=== PATIENT | female | born 1990 | race Caucasian/White ===

== ENCOUNTER 2022-02-27 13:22 | Outpatient (REF) | payer MEDICAID, SELFPAY | END 2022-02-27 13:23 | disposition home or self-care (01) | LOC: HO.LNP 13:22 | PROVIDERS: PCP Pediatrics; Visit Provider Obstetrics & Gynecology | DX: Z12.4 Encounter for screening for malignant neoplasm of cervix (principal); N93.9 Abnormal uterine and vaginal bleeding, unspecified; R19.00 Intra-abdominal and pelvic swelling, mass and lump, unspecified site | CPT/HCPCS: 36415; 84443; 84702; 85027; 88142; 99202 ==

== ENCOUNTER 2022-02-27 14:05 | Outpatient (REF) | payer MEDICAID, SELFPAY ==
[2022-02-27 15:02] LABS: Hematocrit 37.7 % (37.0-47.0); Mean Corpuscular HGB Conc 34.5 g/dl (31.0-35.0); Mean Corpuscular Hemoglobin 32.7 pg (27.0-33.0); Mean Platelet Volume 11.6 fL (9.4-12.3); Platelet Count 348 X10*3/uL (160-400); Red Blood Count 3.97 X10*6/uL (4.20-5.50); Red Cell Distribution Width 11.9 % (11.0-16.0); White Blood Count 9.7 X10*3/uL (4.8-10.8)
[2022-02-27 16:19] LABS: HCG Quantitative < 2 mIU/mL; TSH reflex Free T4 0.48 uIU/mL (0.32-4.0)
== END 2022-02-27 14:06 | disposition home or self-care (01) ==
LOC: HO.LAB 14:05
PROVIDERS: PCP Pediatrics; Visit Provider Obstetrics & Gynecology
DX: N93.9 Abnormal uterine and vaginal bleeding, unspecified (principal)
CPT/HCPCS: 36415; 84443; 84702; 85027

== ENCOUNTER 2022-08-24 10:26 | Outpatient (REF) | payer MEDICAID, SELFPAY ==
--- NOTE | ~2022-08-24 | XR_ITS ---
EXAMINATION: XR HAND, LEFT XR WRIST, LEFT CLINICAL INFORMATION: Injury of left hand and left wrist yesterday. COMPARISON: None available. TECHNIQUE: PA, lateral, and oblique views of the left hand. PA, lateral and oblique views of the left wrist including scaphoid view. FINDINGS: Alignment is anatomic. Joint spaces are maintained. No displaced fracture or dislocation. No displaced fracture or dislocation. No erosions or soft tissue calcifications. XR/XR wrist LT w scaphoid IMPRESSION: No acute abnormality.
--- NOTE | ~2022-08-24 | XR_ITS ---
EXAMINATION: XR HAND, LEFT XR WRIST, LEFT CLINICAL INFORMATION: Injury of left hand and left wrist yesterday. COMPARISON: None available. TECHNIQUE: PA, lateral, and oblique views of the left hand. PA, lateral and oblique views of the left wrist including scaphoid view. FINDINGS: Alignment is anatomic. Joint spaces are maintained. No displaced fracture or dislocation. No displaced fracture or dislocation. No erosions or soft tissue calcifications. XR/XR hand LT min 3V IMPRESSION: No acute abnormality.
== END 2022-08-24 10:27 | disposition home or self-care (01) ==
LOC: HO.HHCX 10:26
PROVIDERS: Visit Provider Internal Medicine
DX: M79.642 Pain in left hand (principal); M25.532 Pain in left wrist
CPT/HCPCS: 73110; 73130

== ENCOUNTER 2022-09-18 16:15 | Outpatient (REF) | payer MEDICAID, SELFPAY ==
--- NOTE | ~2022-09-18 | XR_ITS ---
EXAMINATION: XR KNEE, LEFT CLINICAL INFORMATION: Left knee injury. COMPARISON: None available. TECHNIQUE: Four views of the left knee. FINDINGS: No fracture or joint effusion appreciated. Alignment is anatomic. Joint spaces are maintained. No abnormal soft tissue calcification. XR/XR knee LT 4V IMPRESSION: Normal plain film examination of the left knee.
== END 2022-09-18 16:16 | disposition home or self-care (01) ==
LOC: HO.XRAY 16:15
PROVIDERS: PCP Pediatrics; Visit Provider Registered Nurse
DX: S89.92XA Unspecified injury of left lower leg, initial encounter (principal)
CPT/HCPCS: 73564

== ENCOUNTER 2022-10-18 15:47 | Outpatient (REF) | payer MEDICAID, SELFPAY ==
--- NOTE | ~2022-10-18 | XR_ITS ---
EXAMINATION: XR WRIST, LEFT XR HAND, LEFT CLINICAL INFORMATION: Pain. COMPARISON: Radiographs dated 08/24/2022. TECHNIQUE: A dedicated navicular view of the left wrist are submitted. PA, lateral, and oblique views of the left hand are submitted. FINDINGS: The bones and soft tissues are normal. No fracture. Alignment is anatomic with normal joint spaces. No erosions or abnormal soft tissue calcifications. XR/XR hand LT min 3V IMPRESSION: Normal left wrist.
--- NOTE | ~2022-10-18 | XR_ITS ---
EXAMINATION: XR WRIST, LEFT XR HAND, LEFT CLINICAL INFORMATION: Pain. COMPARISON: Radiographs dated 08/24/2022. TECHNIQUE: A dedicated navicular view of the left wrist are submitted. PA, lateral, and oblique views of the left hand are submitted. FINDINGS: The bones and soft tissues are normal. No fracture. Alignment is anatomic with normal joint spaces. No erosions or abnormal soft tissue calcifications. XR/XR wrist LT min 3V IMPRESSION: Normal left wrist.
[2022-10-18 18:21] LABS: TSH reflex Free T4 0.53 uIU/mL (0.32-4.0); Vitamin D 25-OH Total 20.9 ng/mL (>30)
[2022-10-20 22:13] LABS: TS Negative Control Passed; TS Panel A 0; TS Panel B 0; TS Positive Control Passed; TSpotTB Negative (Negative)
== END 2022-10-18 15:48 | disposition home or self-care (01) ==
LOC: HO.LAB 15:47
PROVIDERS: PCP Pediatrics; Visit Provider Pediatrics
DX: M25.532 Pain in left wrist (principal); E03.9 Hypothyroidism, unspecified
CPT/HCPCS: 36415; 73110; 73130; 82306; 84443; 86481

== ENCOUNTER 2022-10-24 13:08 | Outpatient (AMB) | payer MEDICAID, SELFPAY ==
--- NOTE | 2022-10-24 13:23 | A.OFFVIS_ITS ---
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 States about mid August, she woke up with pain in her ulnar side. Then 2 weeks later she fell and someone fell on top of her hand increasing her hand pain. 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 States she is now also having numbness since her 2nd injury. seen with her PCP who referred patient to orthopedics. 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 She reportedly punched something in mid August, and then about 2 weeks later fell onto her left hand and someone fell on top of her, re-injuring her left hand. She complains of pain extending from the left small and ring fingers proximally on to the wrist. She had radiographs taken 10/18/2022. She denies numbness and tingling and denies locking and catching Pain is worse with certain patient care maneuvers when she works as a INSTITUTION DIRECTOR. 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 Reproductive History Menstrual Age of Menarche: 15 Physical Exam Vital Signs: BMI result Body Mass Index 27.4 Const General: cooperative, healthy appearing and no acute distress Orientation/consciousness: oriented to person and oriented to place HEENT Head: Yes normocephalic and Yes atraumatic Eyes EOM: EOMs intact bilaterally Resp Effort & Inspection: normal respiratory effort and able to speak in complete sentences Cardio Jugular venous distension: no JVD Skin General skin exam: turgor normal Rashes: no rashes Neuro General: oriented to person and oriented to place Extrem Other: Evaluation of left Upper Extremity: Neuro: Median, ulnar, radial nerves motor and sensory intact. Vascular: Cap refill brisk. ROM: Can bring fingers closed to a tight fist and back out to extension. No locking or catching. No subluxation of extensor tendons at the MCP joint. No subluxation of the 4th or 5th CMC joints. Can oppose thumb to fingertips Smooth and painless wrist ROM Mild tenderness to palpation over the dorsal aspect of the ring and small finger proximal phalanx shafts. Not particularly tender over the 4th or 5th MCP joints. No tenderness over the 4th or 5th metacarpal heads or necks. Mild tenderness over the 4th and 5th metacarpal shafts Mild tenderness over the 4th and 5th CMC joints dorsally. Not so tender over the dorsal aspect of the ulnocarpal joint, when compared with the 4th and 5th CMC joints. Smooth wrist flexion extension and prono-supination without discomfort. No swelling. Skin: No lacerations or abrasions. General: No eccymosis. No erythema or evidence of infection. Radiographs: Three views of the left hand and wrist were taken on 10/18/2022. These were reviewed by me today in clinic. No fractures or dislocations were visualized. Psych Appearance: grossly normal Affect: normal affect Attitude: cooperative Assessment & Plan Assessment & Plan (1) Right wrist pain: Code(s): M25.531 - Pain in right wrist (2) Right hand pain: Code(s): M79.641 - Pain in right hand Plan Assessment and plan: 1. Right hand/wrist pain Following up punching injury and then a fall all in August of 2022 No fractures or dislocations Tenderness in ring and small finger proximal phalanx shafts Tenderness also at the dorsal aspect of the 4th and 5th CMC joints with no evidence of subluxation. It is possible that she may have sprained the 4th and 5th CMC joints. Pain is exacerbated with heavier activities, including some of the activity she does as a INSTITUTION DIRECTOR. I educated her about this condition. It is possible she has a 4th and 5th CMC sprain and may need some more time for her hand to recover. I am referring her to OT hand therapy to see if they may be helpful in decreasing her pain with her work related activities. We will see her back in about 6 weeks to see how she is doing. If things are not getting better we could consider an MRI or a CT scan depending on what her symptoms are like at that time. Orders: Orders OT Evaluation and Treatment Today M25.531 - Pain in right wrist, M79.641 - Pain in right hand Coding Level of Care Code New Pt Level 3 (98411) Diagnoses Right wrist pain M25.531 Right hand pain M79.641
[2022-10-24 13:25] VITALS: BMI 27.4
== END 2022-10-24 14:09 | disposition home or self-care (01) ==
PROVIDERS: PCP Pediatrics; Visit Provider Orthopaedic Surgery
DX: M25.531 Pain in right wrist (principal); M79.641 Pain in right hand
CPT/HCPCS: 99203

== ENCOUNTER → 2022-10-24 13:08 | Outpatient (BNVA) | payer MEDICAID, SELFPAY | PROVIDERS: PCP Pediatrics; Visit Provider Orthopaedic Surgery ==

== ENCOUNTER 2022-11-09 15:12 | Outpatient (REF) | payer MEDICAID, SELFPAY | END 2022-11-09 15:13 | disposition home or self-care (01) | LOC: HO.CHCLDS 15:12 | PROVIDERS: Visit Provider Pediatrics | DX: Z11.3 Encounter for screening for infections with a predominantly sexual mode of transmission (principal) | CPT/HCPCS: 0353U; 86803; 87389 ==

== ENCOUNTER 2023-03-22 10:42 | Outpatient (REF) | payer MEDICAID, SELFPAY ==
[2023-03-22 14:13] LABS: MANUAL DIFF FLAG NO
[2023-03-22 14:22] LABS: Basophils Absolute Auto 0.1 X10*3/uL (0.0-0.2); Basophils Percent Auto 0.6 % (0-2); Eosinophils Absolute Auto 0.2 X10*3/uL (0.0-0.4); Eosinophils Percent Auto 1.6 % (0-4); Hematocrit 42.3 % (37.0-47.0); Hemoglobin 14.4 g/dl (12.0-16.0); Imm Gran Abs Auto 0.03 X10*3/uL (0.00-0.03); Imm Gran Pct Auto 0.3 % (0.0-0.4); Lymphocytes Absolute Auto 2.5 X10*3/uL (1.2-4.9); Mean Corpuscular Hemoglobin 31.7 pg (27.0-33.0); Mean Corpuscular Volume 93.2 fL (80.0-98.0); Mean Platelet Volume 11.9 fL (9.4-12.3); Monocytes Absolute Auto 0.7 X10*3/uL (0.1-1.2); Monocytes Percent Auto 6.8 % (2-11); Neutrophils Absolute Auto 6.2 x10*3/uL (2.0-8.3); Neutrophils Percent Auto 64.7 % (45-73); Platelet Count 349 X10*3/uL (160-400); Red Blood Count 4.54 X10*6/uL (4.20-5.50); Red Cell Distribution Width 11.9 % (11.0-16.0); White Blood Count 9.6 X10*3/uL (4.8-10.8)
[2023-03-22 14:51] LABS: TSH reflex Free T4 0.15 uIU/mL (0.32-4.0); Vitamin D 25-OH Total 33.6 ng/mL (>30)
[2023-03-22 15:40] LABS: Free T4 (Free Thyroxine) 1.39 ng/dL (0.71-1.85)
== END 2023-03-22 10:43 | disposition home or self-care (01) ==
LOC: HO.CHCLDS 10:42
PROVIDERS: Visit Provider Pediatrics
DX: E03.9 Hypothyroidism, unspecified (principal); E55.9 Vitamin D deficiency, unspecified
CPT/HCPCS: 36415; 82306; 84439; 84443; 85025

== ENCOUNTER 2023-04-16 13:44 | Outpatient (REF) | payer MEDICAID, SELFPAY ==
[2023-04-16 15:34] LABS: Influenza A PCR NEGATIVE (Negative); Influenza B PCR NEGATIVE (Negative); Resp Syncy Virus RNA Qual PCR NEGATIVE (Negative); SARS COV2 PCR INHOUSE NEGATIVE (Negative)
== END 2023-04-16 13:45 | disposition home or self-care (01) ==
LOC: HO.CHCLNP 13:44
PROVIDERS: Visit Provider Family Medicine
DX: J06.9 Acute upper respiratory infection, unspecified (principal); Z11.52 Encounter for screening for COVID-19; Z20.828 Contact with and (suspected) exposure to other viral communicable diseases
CPT/HCPCS: 0241U; 87070

== ENCOUNTER 2023-08-17 16:00 | Outpatient (REF) | payer OTHER, MEDICAID, SELFPAY ==
[2023-08-17 18:09] LABS: MANUAL DIFF FLAG NO
[2023-08-17 18:17] LABS: Appearance Urine Clear; Color Urine Dark Yellow; Glucose Urine UA Negative (Negative); Leukocyte Esterase Urine Small (1+) (Negative); Nitrite Urine Negative (Negative); PH 5.5 (5.0-9.0); UMIC TRIGGER UACC YES; Urine Blood Large (3+) (Negative); Urine Ketones Negative (Negative); Urine Protein Trace mg/dL (Neg-Trace)
[2023-08-17 18:19] LABS: Basophils Absolute Auto 0.1 X10*3/uL (0.0-0.2); Basophils Percent Auto 0.7 % (0-2); Eosinophils Absolute Auto 0.5 X10*3/uL (0.0-0.4); Eosinophils Percent Auto 4.6 % (0-4); Hematocrit 36.2 % (37.0-47.0); Hemoglobin 12.6 g/dl (12.0-16.0); Imm Gran Abs Auto 0.04 X10*3/uL (0.00-0.03); Imm Gran Pct Auto 0.4 % (0.0-0.4); Lymphocytes Absolute Auto 3.1 X10*3/uL (1.2-4.9); Lymphocytes Percent Auto 28.8 % (20-40); Mean Corpuscular HGB Conc 34.8 g/dl (31.0-35.0); Mean Corpuscular Hemoglobin 31.9 pg (27.0-33.0); Mean Corpuscular Volume 91.6 fL (80.0-98.0); Mean Platelet Volume 11.7 fL (9.4-12.3); Monocytes Absolute Auto 0.7 X10*3/uL (0.1-1.2); Monocytes Percent Auto 6.6 % (2-11); Neutrophils Absolute Auto 6.3 x10*3/uL (2.0-8.3); Neutrophils Percent Auto 58.9 % (45-73); Platelet Count 334 X10*3/uL (160-400); Red Blood Count 3.95 X10*6/uL (4.20-5.50); Red Cell Distribution Width 11.9 % (11.0-16.0); White Blood Count 10.7 X10*3/uL (4.8-10.8)
[2023-08-17 18:20] LABS: Bacteria Urine Trace (None Seen); Hyaline Casts Urine 0-2 /LPF (0-2); RBC Urine >20 /HPF (0-2); UACC Culture Trigger YES; WBC Urine 21-50 /HPF (0-5)
[2023-08-17 18:50] LABS: HCG Quantitative < 2 mIU/mL; TSH reflex Free T4 0.19 uIU/mL (0.32-4.0)
[2023-08-17 19:28] LABS: Free T4 (Free Thyroxine) 1.07 ng/dL (0.71-1.85)
[2023-08-20 05:20] LABS: HBS Num1 77.93 mIU/mL (0-7.99); ~HepC Num1 0.44 S/CO (0.00-0.79); ~Hepatitis B Surface Antibody REACTIVE (Nonreactive); ~Hepatitis C Antibody Nonreactive (Nonreactive)
== END 2023-08-17 16:01 | disposition home or self-care (01) ==
LOC: HO.CHCLDS 16:00
PROVIDERS: Visit Provider Pediatrics
DX: Z00.00 Encounter for general adult medical examination without abnormal findings (principal); R30.0 Dysuria; N92.6 Irregular menstruation, unspecified; E03.9 Hypothyroidism, unspecified
CPT/HCPCS: 36415; 81001; 84439; 84443; 84702; 85025; 86706; 86803; 87086

== ENCOUNTER 2023-08-31 14:24 | Outpatient (REF) | payer MEDICAID, SELFPAY ==
[2023-08-31 15:07] LABS: MANUAL DIFF FLAG NO
[2023-08-31 15:15] LABS: Basophils Absolute Auto 0.1 X10*3/uL (0.0-0.2); Basophils Percent Auto 1.1 % (0-2); Eosinophils Absolute Auto 0.5 X10*3/uL (0.0-0.4); Hematocrit 37.9 % (37.0-47.0); Hemoglobin 13.5 g/dl (12.0-16.0); Imm Gran Abs Auto 0.03 X10*3/uL (0.00-0.03); Imm Gran Pct Auto 0.3 % (0.0-0.4); Lymphocytes Absolute Auto 2.6 X10*3/uL (1.2-4.9); Lymphocytes Percent Auto 28.9 % (20-40); Mean Corpuscular HGB Conc 35.6 g/dl (31.0-35.0); Mean Corpuscular Hemoglobin 33.1 pg (27.0-33.0); Mean Corpuscular Volume 92.9 fL (80.0-98.0); Mean Platelet Volume 11.6 fL (9.4-12.3); Monocytes Absolute Auto 0.6 X10*3/uL (0.1-1.2); Monocytes Percent Auto 6.9 % (2-11); Neutrophils Percent Auto 56.8 % (45-73); Platelet Count 310 X10*3/uL (160-400); Red Blood Count 4.08 X10*6/uL (4.20-5.50); Red Cell Distribution Width 12.2 % (11.0-16.0); White Blood Count 8.9 X10*3/uL (4.8-10.8)
[2023-08-31 15:25] LABS: Anion Gap 12 (12-20); Blood Urea Nitrogen 10 mg/dL (9-16); Calcium 9.5 mg/dL (8.4-10.2); Carbon Dioxide 26 mmol/L (22-29); Chloride 106 mmol/L (96-108); Estimated Glomerular Filt Rate > 60; Glucose Random 87 mg/dL (60-115); Sodium 140 mmol/L (135-145)
== END 2023-08-31 14:25 | disposition home or self-care (01) ==
LOC: HO.CHCLDS 14:24
PROVIDERS: Visit Provider Internal Medicine
DX: R19.7 Diarrhea, unspecified (principal)
CPT/HCPCS: 36415; 80048; 85025

== ENCOUNTER 2023-09-04 08:31 | Outpatient (REF) | payer MEDICAID, SELFPAY ==
[2023-09-04 17:14] LABS: Vitamin D 25-OH Total 25.2 ng/mL (>30)
== END 2023-09-04 08:32 | disposition home or self-care (01) ==
LOC: HO.CHCLDS 08:31
PROVIDERS: Visit Provider Registered Nurse
DX: E55.9 Vitamin D deficiency, unspecified (principal)
CPT/HCPCS: 36415; 82306

== ENCOUNTER 2023-09-04 09:41 | Outpatient (REF) | payer OTHER, MEDICAID, SELFPAY ==
--- NOTE | ~2023-09-04 | XR_ITS ---
EXAMINATION: XR CHEST CLINICAL INFORMATION: Dry cough with chest tightness for 4 weeks. COMPARISON: 01/28/2019 TECHNIQUE: 2 views of the chest were obtained. FINDINGS: Mild S-shaped thoracolumbar scoliosis. Heart size is normal. No pleural effusion. No focal consolidation. Surgical clips right upper quadrant. XR/XR chest 2V IMPRESSION: No evidence of pneumonia.
== END 2023-09-04 09:42 | disposition home or self-care (01) ==
LOC: HO.XRAY 09:41
PROVIDERS: PCP Pediatrics; Visit Provider Registered Nurse
DX: R05.8 Other specified cough (principal)
CPT/HCPCS: 71046

== ENCOUNTER 2023-10-25 12:55 | Outpatient (REF) | payer OTHER, SELFPAY ==
[2023-10-25 16:07] LABS: TSH reflex Free T4 0.07 uIU/mL (0.32-4.0)
[2023-10-26 17:18] LABS: Triiodothyronine T3 Total 111 ng/dL (76-181)
== END 2023-10-25 12:56 | disposition home or self-care (01) ==
LOC: HO.CHCLDS 12:55
PROVIDERS: Visit Provider Pediatrics
DX: E03.9 Hypothyroidism, unspecified (principal)
CPT/HCPCS: 36415; 84439; 84443; 84480

== ENCOUNTER 2023-12-07 10:37 | Outpatient (AMB) | payer OTHER, SELFPAY ==
[2023-12-07 10:41] VITALS: BP 120/80; BMI 27.4
--- NOTE | 2023-12-07 10:41 | A.OFFVIS_ITS ---
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 Clerk Required: No Information Interpreted: clinical only Party Plan Sales Unit Sales Leader: Party Plan Sales Unit Sales Leader Present Allergies iodine [IODINE] Allergy (Unknown, Unverified 12/07/23 10:41) UNK lamotrigine [From LAMICTAL] Allergy (Unknown, Unverified 12/07/23 10:41) RASH latex [LATEX] Allergy (Unknown, Unverified 12/07/23 10:41) UNK methylphenidate [From CONCERTA] Allergy (Unknown, Unverified 12/07/23 10:41) AGITATION shellfish derived [SHELLFISH DERIVED] Allergy (Unknown, Unverified 12/07/23 10:41) HIVES, SWELLING Lubricants Allergy (Mild, Uncoded 12/07/23 10:41) Hives Medication List - Last Reconciled 12/07/23 by Samra Hodgson CNM albuterol sulfate mg inhalation Q8H PRN epinephrine IM levothyroxine 100 mcg PO QAM Is last menstrual period known: Yes Last menstrual period: 11/27/23 HPI HPI PARKER annual exam: Details: 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 She had preeclampsia the progress to HELLP syndrome with her the then she had a repeat for her son done a little bit early because they said the baby was go so big. he was 8 lb at 39 weeks. She has been trying to get she does want to know when she is ovulating her crystal on her phone tells her but she still wants to know more about it. She gets regular cycles every 26-28 days she is not worried about infection she has been with her partner for 3 years. He has had severe lung issues they think that he might have an autoimmune condition that is affecting his lungs he was hospitalized and has had respiratory failure. She just took FMLA so that she can be home with him because he requested her to. He is breathing better right now. She has hypothyroidism and has just been changed from 100 to [address] Manuel at the [facility] for management of her healthcare including this. She will be seeing her soon for follow-up of this.. She gets allergic reactions to lots of different lubricants and she is very sensitive vaginally and was told that she has very small in there. She said her aunt developed breast cancer that was diagnosed at age 39 and she just appt 42th birthday. She works at [employer] and loves what she does taking care patient's final stage and helping families do the best they can for their loved ones. She has been going to the gym and working out she has taking folic acid 8 mg. She does not smoke cigarettes but she does smoke weed and there was a strong odor of it. 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 Reproductive History Menstrual Age of Menarche: 15 Duration of menses: 3-5 days Date of last menstrual period: 11/27/23 control method: none Total pregnancies: 2 Full term: 2 Date of last pap smear: 02/27/22 (negative,previous pap unk.) Physical Exam Vital Signs: Last Vital Signs BP 120/80 12/07/23 10:41 BMI result Body Mass Index 27.4 Const General: healthy appearing, comfortable, no acute distress, well developed and alert Nutritional Appearance: average body habitus Orientation/consciousness: patient oriented x3 Limitations: no limitations HEENT Head: Yes normocephalic Neck Neck: Yes normal visual inspection Chest Chest palpation & inspection: normal inspection of the chest Breast/axilla inspection: normal inspection of the breasts and normal inspection of the axillae Breast/axilla palpation: normal palpation of the breasts and normal palpation of the axillae Resp Effort & Inspection: normal respiratory effort GI Inspection: Yes normal to inspection, No Abdominal wall edema and No distended Palpation (GI): Soft to palpation and nontender Other: Normal external vagina is and moist consistent with where she is in her cycle cervix nulliparous pink smooth healthy appearing bled with touch of Q-tip. Patient says she always bleeds with intercourse and every time she has any testing. Uterus is small firm midposition to anteverted mobile nontender laparoscopic scars are very well healed from previous C-sections and reanastomosis of her tubes last May in [place] at [place]. (She had in her phone of photo of the report of her surgery citing length of tubes post surgery etc. General: Yes bladder normal to palpation External Female Exam: normal external appearance and normal appearance of the urethra Speculum Exam - Vagina: normal appearance of the vagina, normal palpation and normal vaginal discharge Speculum Exam - Cervix: normal appearance of the cervix, normal palpation and nontender Bimanual exam- vagina & uterus: normal bimanual exam, normal palpation, uterine size normal, bladder normal to palpation, consistency normal, normal palpation, uterine mobility normal, uterine shape normal, No Cervical tenderness present, non-tender and no cervical motion tenderness Bimanual Exam- Adnexa, other: normal adnexae, no masses, normal and No adnexal tenderness Neuro General: patient oriented x3 Results Reviewed Results Reviewed: Name: Hailey Villanueva Age/Sex: 31/F Attending: Rogerio Siu MD : 1990 Submitted by: Rogerio Siu MD Copies to: Xiomara Manuel MD MR #: [id number] Status: DEP REF Collected: 02/27/22 Location: [facility] Received: 02/28/22 Interpretation Satisfactory for evaluation. Negative for intraepithelial lesion or malignancy. Clinical Information LMP: 02/2022 Previous PAP test: Unknown Material Received ThinPrep-Cervical Copies To Xiomara Manuel MD [address] [place] [address] Rogerio Siu MD [address] [place] [address] Dr. Altamirano [address] [place] [address] [id number] Electronically Signed By: Judi Gagnon 03/10/22 4012 The Pap Test is a screening procedure with the inherent possibility of both false negative and false positive results. Results should be interpreted in the context of historic and current clinical findings. Reliability of the Pap Test is enhanced by performing the test on a regular repetitive basis. Patient: Hailey Villanueva Age/Sex: 31/F MR#: [id number] Page 1 of 1 Assessment & Plan Assessment & Plan (1) Patient desires : Code(s): Z31.9 - Encounter for procreative management, unspecified Category: Medical (2) History of : Comment: X2. First at 24-26 weeks with HELLP syndrome. Second a repeat at 39 weeks both at [facility]. Also history of hemmoraging with miscarriage. Code(s): Z98.891 - History of uterine scar from previous surgery Category: Surgical (3) History of reversal of tubal ligation: Code(s): Z98.890 - Other specified postprocedural states Category: Surgical (4) Family history of breast cancer: Comment: Her aunt at age 39, . Code(s): Z80.3 - Family history of malignant neoplasm of breast Category: Medical Plan -----Discussed in this visit the following: healthy balanced diet, regular and consistent exercise, getting recommended health screens, doing the best she can for her particular health concerns, kegel exercises, pap smear screening and followup recommendations, mammography screening and SBE, normal changes in cycles in her life stage--- .---I discussed with pt some of the optimal strategies for planning a , including achieving the best health she can before , including heathy balanced diet, exercise, wt loss to ideal BMI if appropriate, avoiding toxic substances and medications, not smoking, and taking a multivitamin w folic acid daily. Any specific health concerns should be managed before seeking/ putting oneself at risk of pregancy. In addition I reviewed normal cycles, fertility awareness and signs of ovulation, and timing to avoid, and achieve when she feel ready. I also discussed emotional and relationship and support readiness before embarking on . she feels ready. I did discuss marijuana issues. ----detail teaching about the signs and symptoms of ovulation and changes throughout the menstrual cycle done in great detail including visual teaching. -------additionally discussed that we no longer have a birthing center and anyon e with any high-risk factors including preeclampsia HELLP syndrome and 2 previous C-sections would by definition falling to a higher risk category it should receive all of their care from the very start at the institution where she will deliver she has had a negative experience with [facility] and I did share that we send people to [facility] to deliver for was pregnancies for are able to be seen here. So she may want to start all of her care from the very start at [facility] if she does achieve which is her goal. She will be following up with her primary care provider very soon and I recommend she have a discussion about what kind of early screening she would recommend for her and if she needed a referral then she could place it. Coding Level of Care Code Est Pt Prev Care 18-39y(06853) Diagnoses Patient desires Z31.9 History of Z98.891 History of reversal of tubal ligation Z98.890 Family history of breast cancer Z80.3
== END 2023-12-07 11:41 | disposition home or self-care (01) ==
LOC: HO.HWSM 10:37
PROVIDERS: PCP Pediatrics; Visit Provider Advanced Practice Midwife
DX: Z01.419 Encounter for gynecological examination (general) (routine) without abnormal findings (principal)
CPT/HCPCS: 99395

== ENCOUNTER 2023-12-07 10:37 | Outpatient (REF) | payer OTHER, SELFPAY ==
[2023-12-08 01:54] LABS: CT PCR NOT DETECTED (Not Detect.); NG PCR NOT DETECTED (Not Detect.)
[2023-12-08 15:52] LABS: Bacterial Vaginosis PCR NEGATIVE (Negative); Candida Group PCR NOT DETECTED (Not Detect); Candida glab krusei PCR NOT DETECTED (Not Detect); Trichomonas vaginalis PCR NOT DETECTED (Not Detect)
== END 2023-12-07 10:38 | disposition home or self-care (01) ==
LOC: HO.LAB 10:37
PROVIDERS: PCP Pediatrics; Visit Provider Advanced Practice Midwife
DX: N89.8 Other specified noninflammatory disorders of vagina (principal); Z20.2 Contact with and (suspected) exposure to infections with a predominantly sexual mode of transmission
CPT/HCPCS: 0352U; 87491; 87591

== ENCOUNTER 2023-12-07 14:05 | Outpatient (REF) | payer OTHER, SELFPAY | END 2023-12-07 14:06 | disposition home or self-care (01) | LOC: HO.LNP 14:05 | PROVIDERS: Visit Provider Advanced Practice Midwife | DX: Z13.89 Encounter for screening for other disorder (principal) ==

== ENCOUNTER 2024-02-07 15:01 | Outpatient (REF) | payer OTHER, SELFPAY ==
[2024-02-07 18:32] LABS: Influenza A PCR NEGATIVE (Negative); Influenza B PCR NEGATIVE (Negative); Resp Syncy Virus RNA Qual PCR NEGATIVE (Negative); SARS COV2 PCR INHOUSE NEGATIVE (Negative)
[2024-02-08 09:28] LABS: Adenovirus PCR Not Detected (Not Detect.); Bordetella parapertussis PCR Not Detected (Not Detect.); Bordetella pertussis PCR Not Detected (Not Detect.); Chlamydia pneumoniae PCR Not Detected (Not Detect.); Coronavirus 229E PCR Not Detected (Not Detect.); Coronavirus HKU1 PCR Not Detected (Not Detect.); Coronavirus NL63 PCR Not Detected (Not Detect.); Coronavirus OC43 PCR Not Detected (Not Detect.); Human metapneumovirus PCR Not Detected (Not Detect.); Influenza A PCR Not Detected (Not Detect.); Influenza B PCR Not Detected (Not Detect.); Mycoplasma pneumoniae PCR Not Detected (Not Detect.); Parainfluenza 1 PCR Not Detected (Not Detect.); Parainfluenza 2 PCR Not Detected (Not Detect.); Parainfluenza 3 PCR Not Detected (Not Detect.); Parainfluenza 4 PCR Not Detected (Not Detect.); RSV PCR Not Detected (Not Detect.); Rhino/Enterovirus PCR Not Detected (Not Detect.)
[2024-02-08 09:42] LABS: SARS-CoV-2 PCR Not Detected (Not Detect.)
== END 2024-02-07 15:02 | disposition home or self-care (01) ==
LOC: HO.CHCLNP 15:01
PROVIDERS: Visit Provider Pediatrics
DX: J06.9 Acute upper respiratory infection, unspecified (principal)
CPT/HCPCS: 0241U; 87633

== ENCOUNTER 2024-03-27 10:59 | Outpatient (REF) | payer OTHER, SELFPAY ==
--- OUTSIDE RECORDS SUMMARY | 2024-03-27 12:17 | XMS_ITS | Clinical Summary ---
Author Organization [facility] ity Address [address] [place] [id number] Care Team Providers Care Solvent Station Attendant Name Role Phone Unavailable Primary Care Provider Unavailabl e Social History Tobacco Use Types Packs/Day Years Used Date Smoking Tobacco: Never Assessed Comments Unknown Sex and Gender Information Value Date Recorded Sex Assigned at Not on file Legal Sex Female 12:36 PM EST Gender Identity Not on file Sexual Orientation Not on file Plan of Treatment Health Maintenance Due Date Last Done Comments DTaP,Tdap,and Td Vaccines (1 - Tdap) 10/03/2011 Hepatitis B Vaccines (1 of 3 - 19+ 3-dose series) 10/03/2011 Cervical Cancer Screening: P ap Smear 2013 Depression Screening 01/03/2022 HIV Screening 01/03/2022 Hepatitis C Screening 01/03/2022 Social Influencers of Health Screening 01/03/2022 COVID-19 Vaccine ( - 2023-2 5 season) 2023 Influenza Vaccine (#1) 2023 HIB Vaccines Aged Out No longer eligi ble based on patient's age to complete this topic HPV Vaccines Aged Out No longer eligi ble based on patient's age to complete this topic Hepatitis A Vaccines Aged Out No long er eligible based on patient's age to complete this topic IPV Vaccines Aged Out No longer eligi ble based on patient's age to complete this topic MMR Vaccines Aged Out No longer eligi ble based on patient's age to complete this topic Meningococcal ACWY Vaccine Aged Out N o longer eligible based on patient's age to complete this topic Meningococcal B Vacine Aged Out No lo nger eligible based on patient's age to complete this topic Pneumococcal Vaccine: Pediat rics (0 to 5 Years) and At-Risk Patients (6 to 64 Years) Aged Out No longer eligible b ased on patient's age to complete this topic RSV Immunization Patients Un mario 20 months Aged Out No longer eligible b ased on patient's age to complete this topic Varicella Vaccines Aged Out No longer eligible based on patient's age to complete this topic
--- OUTSIDE RECORDS SUMMARY | 2024-03-27 12:17 | XMS_ITS | Encounter Summary ---
Author Organization [employer] Address [address] [place] [address] Care Team Providers Care Hamper Maker Name Role Phone Xiomara Manuel MD Primary Care Provider [phone] Reason for Visit * Reason Comments Med Change Request Encounter Details Date Type Department Care Team ([facility] st Contact Info) Description 09/04/2023 Refill [facility] [address], [place] [id number] Tessa Houston FNP [address] [place] [address] Mild intermittent asthma without complication Social History Tobacco Use Types Packs/Day Years Used Date Smoking Tobacco: Never Passive Smoke Exposure: Never Smokeless Tobacco: Never Alcohol Use Standard Drinks/Week Comments Never 0 (1 standard drink = 0.6 oz pur e alcohol) Depression Answer Date Recorded Patient Health Questionnaire-9 Score 0 11/09/2022 Housing Stability Answer Date Recorded What is your housing situation today? I have lizbet peace 12/11/[address] you li ve. Do you have problems with any of the following? None of the above 12/11/2022 Food Insecurity Answer Date Recorded Within the past 12 months, y ou worried that your food would run out before you got money to buy more: Never True 12/11/2022 Within the past 12 months,th e food you bought just didn't last and you didn't have enough money to get more: Never True 07/2022 Transportation Answer Date Recorded In the past 12 months, has l ack of transportation kept you from medical appts, meetings, work or from getting things needed for daily living? No 12/11/2022 Utilities Answer Date Recorded In the past 12 months, has t he electric, gas, oil or water company threatened to shut off services in your home? No 12/11/2022 Depression Answer Date Recorded Patient Health Questionnaire-2 Score 0 11/09/2022 Comments Unknown Sex and Gender Information Value Date Recorded Sex Assigned at Female 12/05/2021 10:23 AM EDT Legal Sex Female 10:23 AM EDT Gender Identity Female 08/31/2023 3:46 PM EDT Sexual Orientation Straight 08/31/2023 3: 46 PM EDT documented as of this encounter Plan of Treatment Upcoming Encounters Date Type Department Care Team (Late st Contact Info) Description 04/10/2024 10:00 AM EST Office Visit [facility] [address] [place] [address] Xiomara Manuel MD [address] [place] [address] 04/11/2024 10:00 AM EST Office Visit [facility] [address] [place] [address] Jacobo Juan Antonioson [address] [place] [address] 06/24/2024 10:30 AM EDT Office Visit [facility] [address] [place] [address] Xiomara Manuel MD [address] [place] [address] documented as of this encounter Visit Diagnoses Diagnosis Mild intermittent asthma without complication documented in this encounter Additional Health Concerns Assessment Noted Time PHQ-9 Depression Total Score: 0 11/10/19 23 2:58 PM EDT documented as of this encounter Care Teams Hamper Maker Relationship Specialty Start Date End Date Xiomara Manuel MD [address] [place] [address] PCP - General Family Medicine 04/16/18 documented as of this encounter
--- OUTSIDE RECORDS SUMMARY | 2024-03-27 12:17 | XMS_ITS | Clinical Summary ---
Author Organization [employer] Address [address] [place] [address] 7 [place] [address] Care Team Providers Care Geothermal Technician Name Role Phone Xiomara Manuel MD Primary Care Provider [phone] Allergies Active Allergy Reactions Criticality Noted Date Comments Iodine 05/02/2017 Lamotrigine 01/17/2022 Latex 09/18/2022 Methylphenidate 11/09/2022 Shellfish Allergy 11/09/2022 Shellfish-Derived Products 8 Medications methocarbamol (Robaxin) 750 MG tablet TAKE 1 TABLET BY MOUTH EVERY 6 HOURS NEEDED FOR MUSCLE SPASM 023 Active EPINEPHrine (Epipen) 0.3 MG/0.3ML injection syringe Inject 0.3 mL (0.3 mg) as directed 1 (one) time if needed for anaphylaxis for up to 1 dose. Inject into upper leg. Call 911 after use. 0.3 mL 023 Active cetirizine (ZyrTEC) 10 MG tabletIndicatio ns:Nasal congestion Take 1 tablet (10 mg) by mouth in the morning. 90 tablet 1 024 Active Blood Pressure kitIndications: Elevated BP without diagnosis of hypertension Check the BP at home daily 1 kit 024 Active amphetamine-dex troamphetamine XR (Adderall XR) 30 MG 24 hr capsule Active amphetamine-dex troamphetamine (Adderall) 10 MG tablet Active montelukast (Singulair) 10 MG tablet Take 1 tablet (10 mg) by mouth in the evening. 90 tablet 024 Active fluticasone (Flovent) 110 MCG/ACT inhalerIndicati ons:Mild persistent asthma without complication Inhale 1 puff in the morning and at bedtime. Rinse mouth with water after use to reduce aftertaste and incidence of candidiasis. Do not swallow. 12 g 11 024 2024 Active cholecalciferol (Vitamin D-3) 25 MCG (1000 UT) tabletIndicatio ns:Vitamin D Deficiency Take 1 tablet (25 mcg) by mouth Once per day. 90 tablet 3 024 2024 Active hydroCHLOROthia zide (HYDRODiuril) 25 MG tablet Take 1 tablet (25 mg) by mouth Once per day. 30 tablet 11 024 2024 Active Ketotifen Fumarate 0.035 % solution ADMINISTER 1 DROP INTO BOTH EYES IF NEEDED IN THE MORNING AND AT BEDTIME FOR ITCHING OR ALLERGIES. 5 mL 1 024 Active ibuprofen 600 MG tablet Take 1 tab orally tid prn pain 60 tablet 025 Active levothyroxine (Synthroid, Levoxyl) 75 MCG tablet TAKE 1 TABLET BY MOUTH EVERY DAY 90 tablet 1 025 Active butalbital-acet aminophen-caffe ine 50-325-40 MG tabletIndicatio ns:Nonintractab le headache, unspecified chronicity pattern, unspecified headache type Take 1 - 2 tablet by oral route every 6 hours as needed not to exceed 6 tablets per 24hrs 10 tablet 1 025 Active albuterol 108 (90 Base) MCG/ACT inhalerIndicati ons:Mild intermittent asthma without complication Inhale 2 puffs every 4 (four) hours if needed for wheezing. 18 g 11 025 2025 Active albuterol (2.5 MG/3ML) 0.083% nebulizer solutionIndicat ions:Mild intermittent asthma without complication Take 3 mL by nebulization every 8 (eight) hours if needed for wheezing. 75 mL 025 2024 Active diphenhydrAMINE (BENADryl) 25 MG tabletIndicatio ns:Allergic rhinitis, unspecified seasonality, unspecified trigger Take 1 tablet (25 mg) by mouth every 8 (eight) hours if needed for itching. 60 tablet 3 Active amoxicillin-cla vulanate (Augmentin) 875-125 MG tablet Take 1 tablet by mouth 2 times daily for 10 days. 20 tablet 025 2024 Active predniSONE (Deltasone) 20 MG tablet Take 1 tablet (20 mg) by mouth Once per day for 5 days. 5 tablet 2024 Active ibuprofen 800 MG tablet Take 1 tab orally tid prn pain with food intake 90 tablet Active diphenhydrAMINE (BENADryl) 25 MG tabletIndicatio ns:Nasal congestion Take 1 tablet (25 mg) by mouth every 8 (eight) hours if needed for itching. 30 tablet 3 024 2024 Discontinued(R eorder (will not trigger notification to Pharmacy)) albuterol 108 (90 Base) MCG/ACT inhalerIndicati ons:Mild intermittent asthma without complication Inhale 2 puffs every 4 (four) hours if needed for wheezing. 18 g 11 024 2024 Discontinued(R eorder (will not trigger notification to Pharmacy)) albuterol (2.5 MG/3ML) 0.083% nebulizer solutionIndicat ions:Mild persistent asthma without complication TAKE 3 ML BY NEBULIZATION EVERY 8 (EIGHT) HOURS IF NEEDED FOR WHEEZING. 75 mL 024 2024 Discontinued(R eorder (will not trigger notification to Pharmacy)) neomycin-polymy ame-hydrocortis one (Cortisporin) 3.5-54636-8 otic suspensionIndic ations:Acute otitis externa of left ear, unspecified type Administer 3-4 drops into affected ear(s) 4 times daily for 7 days. 10 mL 1 025 2024 Active Problems Problem Noted Date Diagnosed Date Nonintractable headache 03/13/2024 Assessment & Plan (03/13/2024 10:13 AM EST): - Encouraged migraine/HUERTA hygiene interventions - Refill of Fioricet PRN. Reviewed med use, safety, and SE - Follow up precautions Left hand pain 08/24/2022 Left wrist pain 08/24/2022 Gingival bleeding 06/21/2022 Dental calculus 06/21/2022 Acquired hypothyroidism 05/19/2022 Assessment & Plan (05/19/2022 11:53 AM EDT): Patient complains of chronic fatigue, irregular periods, has fam hx of hypothyroidism, will start on levothyroxine 50mcg, follow up tsh in 6-8 weeks Abnormal uterine bleeding 01/04/2022 Assessment & Plan (05/24/2022 2:42 PM EDT): Patient with negative test. Recommend patient to f/up with PCP Assessment & Plan (01/05/2022 2:58 PM EST): Patient with 1 month hx of AUB, spotting. Will send CBC, prolactin, TSH, GC/Chlamydia and send pelvic US. Also schedule f/u with [facility]. Recommended f/u with PCP. Myopia of both eyes 01/04/2022 Overweight 01/04/2022 Assessment & Plan (05/16/2022 8:58 AM EDT): Patient complains of increased abdominal irth without any other complain (fever/chills, abdominal pain, diarrhea, constipation, nause/vomiting), she had a pelvic ultrasound on the past month, also tested negative for , was referred to ob-digital learning platforms manager for suspected endometriosis. Will place routine labs to evaluate other causes Allergies 01/04/2022 Assessment & Plan (03/13/2024 10:15 AM EST): Hx of allergies to medication, food, and environmental triggers Benadryl PRN Referral to re-establish with Robotic Maintenance Technician for further eval and management Lactose intolerance 08/17/2016 Asthma 08/17/2016 Assessment & Plan (04/16/2023 11:13 PM EDT): Asthma exacerbation likely tirggered by a respiratory infection and allergen exposure. Plan to increase the use of Albuterol and Fluticasone. Patient given course of oral steroids if no improvement. Encounters Date Type Department Care Team Description 03/27/2024 10:00 AM EST Office Visit [facility] [address] [place] [address] Xiomara Manuel MD Bilateral otitis media with effusion (Primary Dx) 03/27/2024 Travel 03/27/2024 Telephone [facility] [address] [place] [phone] Xiomara Manuel MD Nurse Triage 03/18/2024 Orders Only [facility] [address] [place] [address] Xiomara Manuel MD Acquired hypothyroidism (Primary Dx) 03/12/2024 5:20 PM EST Office Visit [facility] [address] [place] [phone] La Hines FNP Allergies (Primary Dx); Nonintractable headache, unspecified chronicity pattern, unspecified headache type; Mild intermittent asthma without complication; Acute otitis externa of left ear, unspecified type; Elevated blood pressure reading 03/12/2024 Telephone [facility] [address] [place] [phone] Xiomara Manuel MD Nurse Triage 03/03/2024 11:00 AM EST Office Visit [facility] [address] [place] [address] Rafia Tobias 02/25/2024 Refill [facility] [address] [place] [address] Xiomara Manuel MD 02/07/2024 1:40 PM EST Office Visit [facility] [address] [place] [address] Xiomara Manuel MD URI, acute (Primary Dx) 02/07/2024 Travel 02/07/[address] [address] Xiomara Manuel MD Nurse Triage from Last 3 Months Immunizations Name Administration Dates Next Due Hep B, adult 08/26/2021 Influenza injectable quadriv alent IIV4 with preservative 10/12/2022,11/12/2018,10/31/2016 Influenza injectable quadriv alent preservative free 01/03/2021,01/10/2016,11/18/2014 Influenza, IIV3, injectable 01/10/2016, 5,03/22/2012 Influenza, seasonal, injecta ble, preservative free 03/22/2012 Influenza, trivalent, adjuvanted 03/22/2012 Moderna Covid-19 Vaccine 12+ 08/23/2021,01/04/20 21,09/01/2020 Pfizer Covid-19 Vaccine 12+ 08/23/2021, 1 Pneumococcal Polysaccharide PPSV23 08/26/2021 Tdap 01/04/2015,2011 Social History Tobacco Use Types Packs/Day Years Used Date Smoking Tobacco: Never Passive Smoke Exposure: Never Smokeless Tobacco: Never Tobacco Cessation:Counseling Given: Not Answered Alcohol Use Standard Drinks/Week Comments Never 0 [...] Orientation Straight 08/31/2023 3: 46 PM EDT Last Filed Vital Signs Vital Sign Reading Time Taken Comments Blood Pressure 138/97 03/27/2024 10:15 AM EST Pulse 92 03/27/2024 10:15 AM EST Temperature 36.7 ??C (98.1 ??F) 03/27/2024 10:[address] Respiratory Rate 20 03/27/2024 10:15 AM EST Oxygen Saturation 98% 03/27/2024 10:15 AM EST Inhaled Oxygen Concentration - - Weight 85.3 kg (188 lb) 03/27/2024 10:15 AM EST Height 172.7 cm (5' 8 ) 03/27/2024 10:15 AM EST Body Mass Index 28.59 03/27/2024 10:15 AM EST Plan of Treatment Upcoming Encounters Date Type Department Care Team (Late st Contact Info) Description 04/10/2024 10:00 AM EST Office Visit [facility] [address] [place] [address] Xiomara Manuel MD [address] [place] [address] 04/11/2024 10:00 AM EST Office Visit [facility] [address] [place] [address] Odalis Juan Antonioson [address] [place] [address] 06/24/2024 10:30 AM EDT Office Visit [facility] [address] [place] [address] Xiomara Manuel MD [address] [place] [address] Health Maintenance Due Date Last Done Comments Alcohol/Substance Use Screening 2004 Family Planning (PISQ) 10/03/2007 Hepatitis B Vaccines (2 of 3 - 19+ 3-dose series) 09/23/2021 08/26/2021 Pneumococcal Vaccine: Pediatrics (0 to 5 Years) and At-Risk Patients (6 to 49) Years) (2 of 2 - PCV) 08/26/2022 08/26/2021 HPV/Cotest 2022 SDOH Screening 08/25/2023 08/24/2022 COVID-19 Vaccine (6 - season) 2023 08/23/2021, 08/23/2021, 01/03/2021, Additional history exists Influenza Vaccine (#1) 2023 , 01/03/2021, 11/12/2018, Additional history exists Depression Screening 11/10/2023 11/09/2022, 11/10/19 Dental Oral Exam 09/01/2024 03/03/2024 Dental Prophylaxis 09/01/2024 03/03/2024, 06/21/2022 DTaP/Tdap/Td Vaccines (3 - Td or Tdap) 01/04/2025 01/04/2015, 2011 Cervical Cancer Screening 02/27/2025 Pap Smear 02/27/2025 02/27/2022, 03/08, 03/24/2021 Tobacco Screening 03/03/2025 03/03/2024 Dental X-Ray: Bitewings 03/04/2025 03/03/2024, 06/21 Dental X-Ray: Full Mouth 03/04/2027 03/03/2024 Lipid Panel 05/18/2027 05/17/2022 Zoster Vaccines (1 of 2) 2042 RSV Patients and Patients Aged 60 years or older (1 - 1-dose 75+ series) 10/03/2067 HIV Screening Completed 11/09/2022, 04/2021, 03/24/2021, Additional history exists Hepatitis C Screening Completed 08/17/2023 , 11/09/2022, 12/08/2021, Additional history exists HIB Vaccines Aged Out No longer eligi [...] patient's age to complete this topic Meningococcal Vaccine Aged Out No oli yousuf eligible based on patient's age to complete this topic RSV under 20 months Aged Out No longe r eligible based on patient's age to complete this topic Rotavirus Vaccines Aged Out No longer eligible based on patient's age to complete this topic Procedures Procedure Name Priority Date/Time Associated Diagnosis Comments COMPREHENSIVE PERIODONTAL EVALUATION - NEW OR ESTABLISHED PATIENT Routine 03/03/2024 11:00 AM EST PERIODIC ORAL EVALUATION - ESTABLISHED PATIENT Routine 03/03/2024 11:00 AM EST INTRAORAL - COMPLETE SERIES OF RADIOGRAPHIC IMAGES Routine 03/03/2024 11:00 AM EST ORAL HYGIENE INSTRUCTIONS Routine 03/03/2024 11:00 AM EST PROPHYLAXIS - ADULT Routine 03/03/2024 1 1:00 AM EST 3 CROWN - PORCELAIN/CERAMIC Routine 03/03/2024 12:00 AM EST POCT RAPID COVID ANTIGEN Routine 02/07/2024 2:58 PM EST URI, acute POCT INFLUENZA B Routine 02/07/2024 2:57 PM EST URI, acute POCT INFLUENZA A Routine 02/07/2024 2:57 PM EST URI, acute POCT RAPID STREP A Routine 02/07/2024 2: 57 PM EST URI, acute RESPIRATORY VIRAL PANEL PCR Routine 02/07/2024 12:00 AM EST URI, acute SARS COV2/INFLUENZA A/B AND RSV RNA QL NAAT Routine 02/07/2024 12:00 AM EST URI, acute HEPATITIS C AB W/REFL TO HCV RNA, QN, PCR Routine 08/17/2023 4:05 PM EDT Routine general medical examination at a health care facility HIV ANTIBODY/ANTIGEN ([place] [facility]) Routine 11/09/2022 3:15 PM EDT LIPID PANEL, STANDARD Routine 05/17/2022 9:35 AM EDT Overweight PAP SMEAR Routine 02/27/2022 2:02 PM EST Endometriosis from Last 3 Months or Most Recently Relevant to Health Maintenance Results * POCT Rapid Covid-19 BinaxNOW (02/07/2024 2:58 PM EST) [facility] Rapid COVID Ag Negative QC Media Lot # [id number] Lot# Expiration Date [id number] Swab 02/07/2024 2:58 PM EST Result [facility] Xiomara Manuel MD POINT OF CARE TEST ENTER/EDIT ORDERABLES Final Result * POCT Rapid Influenza B OSOM (02/07/2024 2:57 PM EST) [facility] Rapid Influenza B Ag Negative Negative, Indeterminate QC Media Lot # [id number] Lot# Expiration Date ,025 Swab 02/07/2024 2:57 PM EST Result [facility] Xiomara Manuel MD POINT OF CARE TEST ENTER/EDIT ORDERABLES Final Result * POCT Rapid Influenza A OSOM (02/07/2024 2:57 PM EST) [facility] Rapid Influenza A Ag Negative Negative, Indeterminate QC Media Lot # [id number] Lot# Expiration Date ,025 Swab Nasopharyngeal structure / Unknown 02/07/2024 2:57 PM EST Result [facility] Xiomara Manuel MD POINT OF CARE TEST ENTER/EDIT ORDERABLES Final Result * POCT Rapid Strep A OSOM (02/07/2024 2:57 PM EST) [facility] Rapid Strep A Screen Negative Negative, None Detected QC Media Lot # [id number] Lot# Expiration Date Swab 02/07/2024 2:57 PM EST Result [facility] Xiomara Manuel MD POINT OF CARE TEST ENTER/EDIT ORDERABLES Final Result * SARS-CoV-2 RNA, Influenza A/B, and RSV RNA, Ql NAAT (02/07/2024 12:00 AM EST) [facility] Influenza A PCR NEGATIVE Negative [facility] Influenza B PCR NEGATIVE Negative [facility] Resp Syncy Virus RNA Qual PCR NEGATIVE Negative [facility] SARS COV2 PCR NEGATIVE Negative [facility] Comment:All test results mus t be correlated with clinical findings.Negative results do not preclude SARS-CoV2, influenza Avirus, influenza B virus and/or RSV infectionand should not be used as the sole basis for treatment orother patient management decisions. Negative results must becombined with clinical observations, patient history, andepidemiological information.This test has not been evaluated for monitoring treatment ofinfection.This test has been authorized by the FDA under an EmergencyUse Authorization (EUA) for use by authorized laboratories.Testing performed on the [employer] GeneXpert utilizingreal-time RT-PCR.All SARS CoV2 and positive influenza A/B results arereported to [facility]. Swab Nasopharyngeal structure / Unknown 02/07/2024 02/07/2024 Xiomara Manuel MD LAB MICROBIOLOGY - GENERAL OR DERABLES Final Result [facility] [address] [place] [phone] * Respiratory Viral Panel PCR (02/07/2024 12:00 AM EST) [facility] Adenovirus PCR Not Detected Not Detect. [facility] Bordetella pertussis PCR Not Detected Not Detect. [facility] Comment:Interpret results wi th caution. If B. pertussis isspecifically suspected, additional testing using analternate method is recommended. Bordetella parapertussis PCR Not Detected Not Detect. [facility] Chlamydia pneumoniae PCR Not Detected Not Detect. [facility] Coronavirus 229E PCR Not Detected Not Detect. [facility] Coronavirus HKU1 PCR Not Detected Not Detect. [facility] Coronavirus NL63 PCR Not Detected Not Detect. [facility] Coronavirus OC43 PCR Not Detected Not Detect. [facility] SARS-CoV-2 PCR Not Detected Not Detect. [facility] Comment:SARS-CoV-2 not detec kay by real-time RT-PCR.Note: If clinical suspicion for Sars-CoV-2 is high, continueto maintain precautions and consider repeat testing.Test results should be interpreted in the context ofclinical findings and other laboratory data.Rare polymorphisms exist that could lead to false-negativeor false-positive results. If results do not match theclinical findings, additional testing should be considered.Results reported to [facility].This test has been authorized by the FDA under the EmergencyUse Authorization (EUA) for use by authorized laboratories. Influenza A PCR Not Detected Not Detect. [facility] Influenza B PCR Not Detected Not Detect. [facility] Human metapneumovirus PCR Not Detected Not Detect. [facility] Rhino/Enterovirus PCR Not Detected Not Detect. [facility] Mycoplasma pneumoniae PCR Not Detected Not Detect. [facility] Parainfluenza 1 PCR Not Detected Not Detect. [facility] Parainfluenza 2 PCR Not Detected Not Detect. [facility] Parainfluenza 3 PCR Not Detected Not Detect. [facility] Parainfluenza 4 PCR Not Detected Not Detect. [facility] RSV PCR Not Detected Not Detect. [facility] Resp Panel NA Note See Note [facility] Comment:All results must be correlated with clinical findings.Negative results should not be used as the sole basis fordiagnosis, treatment, or other management decisions.A negative result does not exclude the possibility of viralor bacterial infection. Negative results may occur from thepresence of sequence variants in the region targeted by theassay, the presence of inhibitors, an infection caused by anorganism not detected by the panel, or lower respiratorytract infections that are not detected by a nasopharyngealswab specimen. Test results may also be affected byconcurrent antiviral/antibacterial therapy or levels oforganism in the specimen that are below the limit ofdetection for this test.This assay is performed by Multiplexed PCR, utilizing [employer] Array. Swab 02/07/2024 02/07/2024 Xiomara Manuel MD LAB BLOOD ORDERABLES Final Re sult Performing Organization Address [facility]/ZIP Co de Phone Number [facility] [address] [place] [phone] * Hepatitis C Antibody with Reflex to HCV, RNA, Quantitative, Real-Time PCR (08/17/2023 4:05 PM EDT) Hepatitis C Antibody Nonreactive Nonreactive [facility] Comment:Antibodies to HCV no t detected; does not exclude early acuteHCV infection. Blood Venous blood specimen / Unknown 08/17/2023 4:05 PM EDT 08/17/2023 6:06 PM EDT Xiomara Manuel MD LAB BLOOD ORDERABLES Final Re sult Performing Organization Address [facility] Co de Phone Number [facility] [address] [place] [phone] * HIV Ab/Ag ([facility]) (11/09/2022 3:15 PM EDT) HIV AB/AG Nonreactive Nonreactive [facility] Comment:HIV-1 p24 Ag and/or HIV-1/HIV-2 Ab not detected.A test result that is nonreactive does not exclude thepossibility of exposure to or infection with HIV-1 and/orHIV-2. Nonreactive results in this assay for individualswith prior exposure to HIV-1 and/or HIV-2 may be due toantigen and antibody levels that are below the limit ofdetection of this assay.The [employer] HIV Ag/Ab Combo assay result andsupplemental assay results should be interpreted inconjunction with the patient's clinical presentation,history and other laboratory results. If the results areinconsistent with clinical evidence, additional testing issuggested to confirm the result. 11/09/2022 3:15 PM EDT 11/09/2022 5:24 PM EDT us Xiomara Manuel MD LAB BLOOD ORDERABLES Final Re sult Performing Organization Address City/[facility]/ZIP Co de Phone Number [facility] [address] [place] [phone] * (ABNORMAL) Lipid Panel, Standard (05/17/2022 9:35 AM EDT) Cholesterol, Total 130 <200 mg/dL [facility] HDL Cholesterol 39(L) > OR = 50 mg/dL [facility] Triglycerides 105 <150 mg/dL [facility] LDL Cholesterol 72 mg/dL (calc) [facility] Comment: Reference range: <100 Desirable range <100 mg/dL for primary prevention; ?? <70 mg/dL for patients with CHD or diabetic patients with > or = 2 CHD risk factors. LDL-C is now calculated using the Minh-Perry calculation, which is a validated novel method providing better accuracy than the Friedewald equation in the estimation of LDL-C. Minh SS et al. KATIE. 2013;310(19): 6906-8616 (http://education.[employer]/faq/VKJ881) Chol/HDLC Ratio 3.3 <5.0 (calc) [facility] Non-HDL Cholesterol 91 <130 mg/dL (calc) [facility] Comment: For patients with diabetes plus 1 major ASCVD risk factor, treating to a non-HDL-C goal of <100 mg/dL (LDL-C of <70 mg/dL) is considered a therapeutic option. Blood Venous blood specimen / Unknown 05/17/2022 9:35 AM EDT 05/17/2022 9:36 AM EDT Narrative [facility] - 05/18/2022 9:06 AM EDT FASTING:YES FASTING: YES us Nima Rick MD LAB BLOOD ORDERABL ES Final Result Performing Organization Address City/[facility]/ZIP Co de Phone Number [facility] [address], [place] [address] [facility] [address] [place] [phone] * Pap Smear (02/27/2022 2:02 PM EST) 02/27/2022 2:02 PM EST 02/28/2022 5:30 PM EST [facility] - 03/10/2022 6:28 PM EST ----- ------- Name: Hailey Villanueva ? Age/Sex: 31/F ? : 1990 Unit#: [id number] ?? Attend Dr: Rogerio Siu MD ?Re02/27/22 ?Status: DEP REF ? Location: HO.LNP ?Disch: ? ----- ------- SPEC : [id number] ? RECD: 02/28/22-1729 ? STATUS: ??SOUT ? REQ NUM: [id number] ? WAYNE: 02/27/22-1402 ? SUBM DR: Rogerio Siu MD ? ENTERED: ??02/28/22-2002 ?SP TYPE: Pap Smr ?OTHR DR: Xiomara Manuel MD ? ORDERED: ??Pap Smear ? Interpretation ?? Satisfactory for evaluation. ?? Negative for intraepithelial lesion or malignancy. ?Clinical Information LMP: 02/2022 Previous PAP test: Unknown ? Material Received ?? ThinPrep-Cervical Copies To: ?? Xiomara Manuel MD ?? [address] ?? [place] [address] ?? [phone] ?? Rogerio Siu MD ?? [address] [place] [address] [place] [address] ?? [place] [address] ?? [phone] ----- ------- Signed (signature on file) Judi Warner Chelsi 03/10/221827 ? ----- ------- ? END OF REPORT ? us [facility] External Provider LAB CYT OLOGY ORDERABLES Final Result Performing Organization Address City/State/[facility] Co de Phone Number [facility] [address] [place] [address] [phone] from Last 3 Months or Most Recently Relevant to Health Maintenance Insurance [facility] [place] [id number] Care Teams Geothermal Technician Relationship Specialty Start Date End Date Xiomara Manuel MD [address] [place] [address] [place] [address] PCP - General Family Medicine 04/16/18
--- OUTSIDE RECORDS SUMMARY | 2024-03-27 12:17 | XMS_ITS | Encounter Summary ---
Author Organization [employer] Address [address] [place] [address] [address] [place] [address] Care Team Providers Care Building Surveyor Name Role Phone Xiomara Manuel MD Primary Care Provider [phone] Reason for Referral * Consultation (Routine) - Pending Review Specialty Diagnoses / Procedures Referred By Contariela t Referred To Contact Allergy Diagnoses Allergic rhinitis, unspecified seasonality, unspecified trigger La Hines FNP [address] [place] [address] Phone: tel: fax: Yann Johns MD [address] [place] [address] [address] [place] [address] Phone: tel: fax: Referral ID Status Reason Start Date Expiration Date Visits Requested Visits Authorized [id number] Pending Review Specialty Services Required 03/13/2024 03/13/2025 1 1 Reason for Visit * Reason Comments Walk-In Ear ache. Migraines Encounter Details Date Type Department Care Team ([facility] st Contact Info) Description 03/12/2024 5:20 PM EST Office Visit [facility] [address] [place], [place] [phone] La Hines FNP [address] [place], [place] [phone] Allergies (Primary Dx); Nonintractable headache, unspecified chronicity pattern, unspecified headache type; Mild intermittent asthma without complication; Acute otitis externa of left ear, unspecified type; Elevated blood pressure reading Social History Tobacco Use Types Packs/Day Years [...] PM EDT documented as of this encounter Last Filed Vital Signs Vital Sign Reading Time Taken Comments Blood Pressure 144/102 03/12/2024 5:03 PM EST Pulse 80 03/12/2024 5:03 PM EST Temperature 36.7 ??C (98 ??F) 03/12/2024 5:03 PM EST Respiratory Rate 20 03/12/2024 5:03 PM EST Oxygen Saturation 99% 03/12/2024 5:03 PM EST Inhaled Oxygen Concentration - - Weight 84.7 kg (186 lb 12.8 oz) 03/12/2024 5:03 PM EST Height 172.7 cm (5' 8 ) 03/12/2024 5:03 PM EST Body Mass Index 28.4 03/12/2024 5:03 PM EST documented in this encounter Progress Notes * La Hines, HEALTH INFORMATION MANAGERS - 03/12/2024 5:20 PM EST Subjective: Hailey Villanueva is a 33 y.o. female w/ PMH asthma and hypothyroid who presents to the Walk in Center for a sick visit. HPI Headaches: hx of headaches/migraines previously tx with Fioricet and imitrex. Reports that she primarily experiences pain in left side of head, associated with muscle tension in shoulders/neck and left ear pain. 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 Has found the Fioricet most helpful in the past, in need of refill. Does not describe as worst HUERTA of life. Left ear pain: potenitally associated with HUERTA. Was seen on 02/07/24 and tx with amox BID x 10 days for acute otitis. Reports persistence of symptoms, limited improvement with abx. No F/C/N/V/D or hearing loss. Allergies: reports hx of extensive environmental allergies as well as list included below. Previously following with distribution center associate and receiving allergy injections. Interested in returning to care for allergies. Referral placed. Albuterol refill: in need of refill for liquid and HFA for PRN use. Med sent. Allergies Allergen Reactions Iodine Lamotrigine Latex Methylphenidate Shellfish Allergy Shellfish-Derived Products Review of Systems Constitutional: Negative for chills and fever. HENT: Positive for ear pain. Negative for sinus pain. Respiratory: Negative for cough. Cardiovascular: Negative for chest pain and palpitations. Gastrointestinal: Negative for diarrhea, nausea and vomiting. Allergic/Immunologic: Positive for environmental allergies and food allergies. Neurological: Positive for headaches. Visit Vitals BP (!) 144/102 (BP Location: Right arm, Patient Position: Sitting, BP Cuff Size: Adult) Pulse 80 Temp 98 ??F (36.7 ??C) (Temporal) Resp 20 Ht 5' 8 (1.727 m) Wt 186 lb 12.8 oz (84.7 kg) SpO2 99% BMI 28.40 kg/m?? Smoking Status Never BSA 2.02 m?? Physical Exam Constitutional: Appearance: Normal appearance. HENT: Head: Atraumatic. Right Ear: Tympanic membrane, ear canal and external ear normal. Left Ear: External ear normal. A middle ear effusion is present. Tympanic membrane is not erythematous. Ears: Comments: Left ear: canal erythematous, middle ear effusion Eyes: Extraocular Movements: Extraocular movements intact. Pupils: Pupils are equal, round, and reactive to light. Cardiovascular: Rate and Rhythm: Normal rate and regular rhythm. Pulmonary: Effort: Pulmonary effort is normal. Breath sounds: Normal breath sounds. Neurological: General: No focal deficit present. Mental Status: She is alert and oriented to person, place, and time. Psychiatric: Mood and Affect: Mood normal. Behavior: Behavior normal. Problem List Items Addressed This Visit Nervous Nonintractable headache Current Assessment & Plan - Encouraged migraine/HUERTA hygiene interventions - Refill of Fioricet PRN. Reviewed med use, safety, and SE - Follow up precautions Relevant Medications ggnlcmmfhg-dbyfzehcqisrq-ycufxulo 50-325-40 MG tablet Respiratory Asthma Relevant Medications albuterol 108 (90 Base) MCG/ACT inhaler albuterol (2.5 MG/3ML) 0.083% nebulizer solution Other Allergies - Primary Current Assessment & Plan Hx of allergies to medication, food, and environmental triggers Benadryl PRN Referral to re-establish with [facility] [address] for further eval and management Relevant Medications diphenhydrAMINE (BENADryl) 25 MG tablet Other Visit Diagnoses Acute otitis externa of left ear, unspecified type - Start cortisporin otic drops. F/up with any persistence or worsening of symptoms. Relevant Medications jmtwpyjz-cvlfsgrmc-rjsugpzdesvwfo (Cortisporin) 3.5-63330-1 otic suspension Elevated blood pressure reading - BP elevated in office, no cardiac symptoms - Suspect secondary to HUERTA/migraine - Encouraged to monitor home BP readings and follow up if above goal Follow up: routine care with PCP, sooner as needed documented in this encounter Miscellaneous Notes * Assessment & Plan Note - CLAUDE Helms - 03/13/2024 10:15 AM EST Associated Problem(s): Allergies Hx of allergies to medication, food, and environmental triggers Benadryl PRN Referral to re-establish with [facility] [address] for further eval and management * Assessment & Plan Note - CLAUDE Helms - 03/13/2024 10:13 AM EST Associated Problem(s): Nonintractable headache - Encouraged migraine/HUERTA hygiene interventions - Refill of Fioricet PRN. Reviewed med use, safety, and SE - Follow up precautions documented in this encounter Plan of Treatment Upcoming Encounters Date Type Department Care Team (Late st Contact Info) Description 04/10/2024 10:00 AM EST Office Visit [facility] MED & PEDS [address] [place] [address] Xiomara Manuel MD [address] [place] [address] 04/11/2024 10:00 AM EST Office Visit [facility] ADULT DENTAL [address] [place] [address] Jacobo Mariscarlita [address] [place] [address] 06/24/2024 10:30 AM EDT Office Visit [facility] MED & PEDS [address] [place] [address] Xiomara Manuel MD [address] [place] [address] Scheduled Referrals Name Type Priority Associated Diagnoses Orde r Schedule Referral to Allergy Outpatient Referral Routine Allergies Expected: 03/13/2024 (Approximate), Expires: 03/13/2025 documented as of this encounter Visit Diagnoses Diagnosis Allergies- Primary Nonintractable headache, unspecified chronicity pattern, unspecified headache type Mild intermittent asthma without complication Acute otitis externa of left ear, unspecified type Elevated blood pressure reading Elevated blood pressure reading without diagnosis of hypertension documented in this encounter Additional Health Concerns Assessment Noted Time PHQ-9 Depression Total Score: 0 11/10/19 23 2:58 PM EDT documented as of this encounter Care Teams Building Surveyor Relationship Specialty Start Date End Date Xiomara Manuel MD [address] [place] [address] PCP - General Family Medicine 04/16/18 documented as of this encounter
--- OUTSIDE RECORDS SUMMARY | 2024-03-27 12:17 | XMS_ITS | Encounter Summary ---
Author Organization [employer] Address [address] [facility] 7 [place] [address] Care Team Providers Care Plant Wire Chief Name Role Phone Xiomara Manuel MD Primary Care Provider [phone] Reason for Visit * Reason Onset Date Comments Nurse Triage 03/12/2024 Encounter Details Date Type Department Care Team ([facility] st Contact Info) Description 03/12/[address] [facility] MEDICINE [address] [place] [address] Xiomara Manuel MD [address] [place], [place] [phone] Nurse Triage Social History Tobacco Use Types Packs/Day Years [...] PM EDT documented as of this encounter Miscellaneous Notes * Telephone Encounter - Sarah Orlando RN - 03/12/2024 12:45 PM EST Triage call Pt reports headaches which are migraine like and mainly on left side. Pt reports had OV02/17/24 for ear infection and finished antibiotic at the time. Pt reports left ear pain continues, nasal congestion, some wheezing at times and hx of allergies, rhinitis. Neg for fever. Pt reports not using nebulizer due to out of albuterol and requests refill. Pt is advised no apt in [facility] today but, may have [facility] openings tomorrow. Pt is advised to come to [facility] today open till 8pm and a provider can see Pt there. Pt agrees with disposition. Pt is advised to increase liquids and agrees. Insurance is verified as active . Protocol Used: Earache (Adult) Protocol-Based Disposition: See in Office or Video Visit Today or Tomorrow Positive Triage Questions: * All other earaches (Exceptions: Brief ear pain lasting < 1 hour, and earache occurring during air travel.) * Patient wants to be seen * All higher-acuity triage questions were negative Care Advice Discussed: * Reassurance and Education - Earache * Pain Medicines * Cold or Heat Pack for Ear Pain * Reasons To Call Back - Severe pain lasts over 2 hours after pain medicine - You become worse * Telephone Encounter - Alisa Laurent - 03/12/2024 11:49 AM EST Symptoms: Headache, Ear Congestion Without Pain Outcome: Schedule an urgent appointment (within 4 hours) or talk to a nurse or provider soon Reason: Getting worse The caller accepted this outcome. [phone] documented in this encounter Plan of Treatment Upcoming Encounters Date Type Department Care Team (Late st Contact Info) Description 04/10/2024 10:00 AM EST Office Visit [facility] MED & PEDS [address] [place] [address] Xiomara Manuel MD [address] [place] [address] 04/11/2024 10:00 AM EST Office Visit [facility] ADULT DENTAL [address] [place] [address] Juan Antonio Jacobopreet [address] [place] [address] 06/24/2024 10:30 AM EDT Office Visit [facility] MED & PEDS [address] [place] [address] Xiomara Manuel MD [address] [place] [address] documented as of this encounter Visit Diagnoses Not on filedocumented in this encounter Additional Health Concerns Assessment Noted Time PHQ-9 Depression Total Score: 0 11/10/19 23 2:58 PM EDT documented as of this encounter Care Teams Plant Wire Chief Relationship Specialty Start Date End Date Xiomara Manuel MD [address] [place] [address] PCP - General Family Medicine 04/16/18 documented as of this encounter
--- OUTSIDE RECORDS SUMMARY | 2024-03-27 12:17 | XMS_ITS | Encounter Summary ---
Author Organization [employer] Address [address] [facility] 7 [place] [address] Care Team Providers Care Fowl Blood Tester Name Role Phone Xiomara Manuel MD Primary Care Provider [phone] Reason for Visit * Reason Comments Routine Cleaning Dental Exam Encounter Details Date Type Department Care Team ([facility] st Contact Info) Description 03/03/2024 11:00 AM EST Office Visit [facility] ADULT DENTAL [address] [place] [address] Rafia Tobias Social History Tobacco Use Types Packs/Day Years Used Date Smoking Tobacco: Never Passive Smoke Exposure: Never Smokeless Tobacco: Never Alcohol Use Standard Drinks/Week Comments Never 0 (1 standard drink = 0.6 oz pur e alcohol) Depression Answer Date Recorded Patient Health Questionnaire-9 Score 0 11/09/2022 Housing Stability Answer Date Recorded What is your housing situation today? I have lizbetanita peace 12/11/[address] you [...] t he electric, gas, oil or water [employer] threatened to shut off services in your [...] Sign Reading Time Taken Comments Blood Pressure 126/84 03/03/2024 11:02 AM EST Pulse - - Temperature - - Respiratory Rate - - Oxygen Saturation - - Inhaled Oxygen Concentration - - Weight - - Height - - Body Mass Index - - documented in this encounter Progress Notes * Rafia Tobias - 03/03/2024 11:00 AM EST Patient ID: Hailey Villanueva is a 33 y.o. female. Time Out: Timeout Date: 03/03/24, Timeout Time: 1103 Location: [facility] Tooth: Maxilla and Mandible Procedure: Exam, X-rays, and Prophylaxis Verified the above with patient, media center assistant, and provider. Confirmed via patient's chart, intraorally and by radiographs. Software Sales Manager: not applicable Medical Hx: Vitals: Blood pressure 126/84. Medications, Med Hx reviewed with patient and updated in chart. Treatment Provided Dental procedures in this visit D1110 - PROPHYLAXIS - ADULT (Completed) Service provider: Rafia Resendez provider: Jess Jacobo D1330 - ORAL HYGIENE INSTRUCTIONS (Completed) Service provider: Rafia Resendez provider: Jess Jacobo D0210 - DIAGNOSTIC - DIAGNOSTIC IMAGING - INTRAORAL - COMPREHENSIVE SERIES OF RADIOGRAPHIC IMAGES (Completed) Service provider: Rafia Resendez provider: Jess Jacobo Instruments Used: Ultrasonic Scalers, Hand Scalers, and Prophy angle Fluoride: N/A Oral Cancer Screening: No lesions Head/Neck Exam: No Lesions Calculus: Light and Generalized Plaque: Light and Generalized Stain: Moderate and Localized Bleeding: Light and Localized Gingiva: Healthy, Perio Charting Completed, and Bleeding on probing OH: Good Perio Chart: Completed Dental exam done by Dr. Jacobo. Oral hygiene instructions provided to patient including brushing technique and flossing. Recommendations: [place] two times daily, modified saldivar technique, Floss daily, Electric toothbrush, Soft bristle toothbrush, [place] Tongue, Anti-sensitivity toothpaste Recall Frequency: 6 mo NV: Restorations Hygienist: Rafia Tobias RDH * Jess Jacobo - 03/03/2024 11:00 AM EST Images from the original note were not included. Dental procedures in this visit D1110 - PROPHYLAXIS - ADULT (Completed) Service provider: Rafia Tobias Billing provider: Jess Jacobo D1330 - ORAL HYGIENE INSTRUCTIONS (Completed) Service provider: Rafia Tobias Billing provider: Jess Jacobo D0210 - DIAGNOSTIC - DIAGNOSTIC IMAGING - INTRAORAL - COMPREHENSIVE SERIES OF RADIOGRAPHIC IMAGES (Completed) Service provider: Rafai Tobias Billing provider: Jess Jacobo D0120 - PERIODIC ORAL EVALUATION - ESTABLISHED PATIENT (Completed) Service provider: Jess Jacobo Billing provider: Jess Jacobo D0180 - COMPREHENSIVE PERIODONTAL EVALUATION - NEW OR ESTABLISHED PATIENT (Completed) Service provider: Jess Jacobo Billing provider: Jess Jacobo Patient ID: Hailey Villanueva is a 33 y.o. female. Time Out: Timeout Date: 03/03/24, Timeout Time: 1103 Location: [facility] Tooth: Maxilla and Mandible Procedure: Exam Verified the above with patient, media center assistant, and provider. Confirmed via patient's chart, intraorally and by radiographs. Software Sales Manager: not applicable Chief Complaint Patient presents with Routine Cleaning Dental Exam Medical Hx: Vitals: Blood pressure 126/84. Past Medical History: Diagnosis Date ADHD Asthma Disease of thyroid gland Medications: Outpatient Encounter Medications as of 03/03/2024 Medication Sig Dispense Refill albuterol 108 (90 Base) MCG/ACT inhaler Inhale 2 puffs every 4 (four) hours if needed for wheezing.18 g 11 amphetamine-dextroamphetamine (Adderall) 10 MG tablet amphetamine-dextroamphetamine XR (Adderall XR) 30 MG 24 hr capsule Blood Pressure kit Check the BP at home daily 1 kit 0 cetirizine (ZyrTEC) 10 MG tablet Take 1 tablet (10 mg) by mouth in the morning. 90 tablet 1 cholecalciferol (Vitamin D-3) 25 MCG (1000 UT) tablet Take 1 tablet (25 mcg) by mouth Once per day.90 tablet 3 diphenhydrAMINE (BENADryl) 25 MG tablet Take 1 tablet (25 mg) by mouth every 8 (eight) hours if needed for itching. 30 tablet 3 EPINEPHrine (Epipen) 0.3 MG/0.3ML injection syringe Inject 0.3 mL (0.3 mg) as directed 1 (one) timeif needed for anaphylaxis for up to 1 dose. Inject into upper leg. Call 911 after use. 0.3 mL 0 fluticasone (Flovent) 110 MCG/ACT inhaler Inhale 1 puff in the morning and at bedtime. Rinse mouth with water after use to reduce aftertaste and incidence of candidiasis. Do not swallow. 12 g 11 hydroCHLOROthiazide (HYDRODiuril) 25 MG tablet Take 1 tablet (25 mg) by mouth Once per day. 30 tablet 11 ibuprofen 600 MG tablet Take 1 tab orally tid prn pain 60 tablet 0 Ketotifen Fumarate 0.035 % solution ADMINISTER 1 DROP INTO BOTH EYES IF NEEDED IN THE MORNING AND AT BEDTIME FOR ITCHING OR ALLERGIES. 5 mL 1 levothyroxine (Synthroid, Levoxyl) 75 MCG tablet TAKE 1 TABLET BY MOUTH EVERY DAY 90 tablet 1 methocarbamol (Robaxin) 750 MG tablet TAKE 1 TABLET BY MOUTH EVERY 6 HOURS NEEDED FOR MUSCLE SPASM montelukast (Singulair) 10 MG tablet Take 1 tablet (10 mg) by mouth in the evening. 90 tablet 0 albuterol (2.5 MG/3ML) 0.083% nebulizer solution TAKE 3 ML BY NEBULIZATION EVERY 8 (EIGHT) HOURS IFNEEDED FOR WHEEZING. 75 mL 0 [DISCONTINUED] levothyroxine (Synthroid) 75 MCG tablet Take 1 tab orally daily 30 tablet 3 No facility-administered encounter medications on file as of 03/03/2024. 33 y/o old female presents for a periodic exam done by Dr. Jess Jacobo, LINDA. Chief Complaint: I came for cleaning Medical History: Patient does not report any changes in health issues that could alter the Treatment Plan. Medical consult / medical clearance needed: None MAKAH: Pain: no Duration: n/a Scale of pain from 1-10 = n/a Aggravating factors: n/a Pain radiating: No Postural variation: No Allergies: Reviewed in EHR Medications: Reviewed in EHR Radiographs X-rays taken today: FMX taken today Discussion: -Pt stated that pt has concern on #18 and mesial decay was evident clinically and radiographically,so planned for orthodoxy. -Pt asked for extraction but pt was advised to get orthodoxy done first and if tooth still bothers, possible need of RCT/post/core/crown/extraction as treatment plan is made to maintain and preserve natural dentition for as long as possible - pt made aware. Pt understood and agreed. -Pt has sensitivity to cold foods and beverages. Sensodyne recommended. -Findings, risks, benefits and alternatives discussed with pt. -Reviewed radiographs with pt. -Restorations planned as charted. -Pt flosses and brushes aggressively, so advised to do both gently. -Pt consumes a lot of soda and has generalized calcification, advised consumption of soda in moderation as it is damaging patient's teeth. Pt understood and agreed. -Pt lost her occlusal guard and asked for new one since pt grinds her teeth and has generalized attrition evident. Pt was informed that a new occlusal guard can be made and planned but pt needs to contact front office agent for sliding fee if applicable or insurance related queries. Pt was also given option of OTC occlusal guard. -OHI reviewed. Emphasis was laid on maintaining good oral hygiene regimen at home along with regular visits to dentist. -Pt understood, was satisfied with our conversation and agreed with tx plan; dismissed in good condition. -All questions answered. Soft tissue exam: WNL; OCS- negative Head and neck exam: Lymph Nodes, Lips, Palate, Buccal Mucosa, Floor of Mouth, Tongue, Tonsils, Alveolar Ridges, Oropharynx, Salivary Ducts, Vestibules - no abnormal findings. TMJ/Occlusal - TMJ is within normal limits. Oral Cancer Risk - low Oral hygiene - good Oral Hygiene Instruction Provided - Yes Oral Hygiene Instructions: [place] two times daily, modified saldivar technique, Floss daily, Electric toothbrush, Soft bristle toothbrush, [place] Tongue. Referrals - None Treatment plan: -Restorative -occlusal guard -6 month recall All questions answered and expressed understanding. Dismissed in good condition. NV: Restorative Hygienist: Rafia Tobias Dentist: Dr. Jess Jacobo, DMD documented in this encounter Plan of Treatment Upcoming Encounters Date Type Department Care Team (Late st Contact Info) Description 04/10/2024 10:00 AM EST Office Visit [facility] MED & PEDS [address] [place] [address] Xiomara Manuel MD [address] [place] [address] 04/11/2024 10:00 AM EST Office Visit [facility] ADULT DENTAL [address] [place] [address] [facility] [address] [place] [address] 06/24/2024 10:30 AM EDT Office Visit [facility] MED & PEDS [address] [place] [address] Xiomara Manuel MD [address] [place] [address] Scheduled Orders Name Type Priority Associated Diagnoses Orde r Schedule 30 DO 30 DO RESTORATIVE - RESIN-BASED COMPOSITE RESTORATIONS - DIRECT - RESIN-BASED COMPOSITE - TWO SURFACES, POSTERIOR Dental Routine 1 Occur rences starting 03/03/2024 18 MO 18 MO RESTORATIVE - RESIN-BASED COMPOSITE RESTORATIONS - DIRECT - RESIN-BASED COMPOSITE - TWO SURFACES, POSTERIOR Dental Routine 1 Occur rences starting 03/03/2024 Max Max ADJUNCTIVE GENERAL SERVICES - MISCELLANEOUS SERVICES - OCCLUSAL GUARD - HARD APPLIANCE, FULL ARCH Dental Routine 1 Occurren daniel starting 03/03/2024 NIGHTGUARD IMPRESSION Dental Routine 1 O ccurrences starting 03/03/2024 documented as of this encounter Procedures Procedure Name Priority Date/Time Associated Diagnosis Comments PROPHYLAXIS - ADULT Routine 03/03/2024 1 1:00 AM EST PERIODIC ORAL EVALUATION - ESTABLISHED PATIENT Routine 03/03/2024 11:00 AM EST ORAL HYGIENE INSTRUCTIONS Routine 2024 11:00 AM EST INTRAORAL - COMPLETE SERIES OF RADIOGRAPHIC IMAGES Routine 03/03/2024 11:00 AM EST COMPREHENSIVE PERIODONTAL EVALUATION - NEW OR ESTABLISHED PATIENT Routine 03/03/2024 11:00 AM EST 3 CROWN - PORCELAIN/CERAMIC Routine 03/03/2024 12:00 AM EST documented in this encounter Visit Diagnoses Not on filedocumented in this encounter Additional Health Concerns Assessment Noted Time PHQ-9 Depression Total Score: 0 11/10/19 23 2:58 PM EDT documented as of this encounter Care Teams Fowl Blood Tester Relationship Specialty Start Date End Date Xiomara Manuel MD [address] [place] [id number] PCP - General Family Medicine 04/16/18 documented as of this encounter
--- OUTSIDE RECORDS SUMMARY | 2024-03-27 12:17 | XMS_ITS | Encounter Summary ---
Author Organization [employer] Address 75 [facility] 7 [place] [address] Care Team Providers Care Business Strategy Manager Name Role Phone Xiomara Manuel MD Primary Care Provider [phone] Encounter Details Date Type Department Care Team ([facility] Contact Info) Description 07/04/2022 Abstract [facility] ADULT DENTAL [address] [place], [place] [phone] Thad Velasquezaris [address] [place] [address] Social History Tobacco Use Types Packs/Day Years Used Date Smoking Tobacco: Never Passive Smoke Exposure: Never Smokeless Tobacco: Never Alcohol Use Standard Drinks/Week Comments Never 0 (1 standard drink = 0.6 oz pur e alcohol) PHQ-2 Answer Date Recorded Patient Health Questionnaire-2 Score 0 01/31/2022 Comments Unknown Sex and Gender Information Value Date Recorded Sex Assigned at Female 12/05/2021 10:23 AM EDT Legal Sex Female 10:23 AM EDT Gender Identity Female 08/31/2023 3:46 PM EDT Sexual Orientation Straight 08/31/2023 3: 46 PM EDT COVID-19 Exposure Response Date Recorded In the last 10 days, have yo u been in contact with someone who was confirmed or suspected to have Coronavirus/COVID-19? No / Unsure 07/07/2022 1:06 PM EDT documented as of this encounter Plan of Treatment Upcoming Encounters Date Type Department Care Team ([facility] Contact Info) Description 04/10/2024 10:00 AM EST Office Visit [facility] MED & PEDS [address] [place], [place] [phone] Xiomara Manuel MD [address] [place] [address] 04/11/2024 10:00 AM EST Office Visit [facility] ADULT DENTAL [address] [place] [address] Jess Jacobo 505 [place] [address] 06/24/2024 10:30 AM EDT Office Visit [facility] MED & PEDS [address] [place] [address] Xoimara Manuel MD [address] [place] [address] documented as of this encounter Visit Diagnoses Not on filedocumented in this encounter Additional Health Concerns Assessment Noted Time PHQ-9 Depression Total Score: 0 02/01/20 22 11:02 AM EST documented as of this encounter Care Teams Business Strategy Manager Relationship Specialty Start Date End Date Xiomara Manuel MD [address] [place] [address] PCP - General Family Medicine 04/16/18 documented as of this encounter
--- OUTSIDE RECORDS SUMMARY | 2024-03-27 12:17 | XMS_ITS | Encounter Summary ---
Author Organization [employer] Address [address] [place] [address] [place] [address] Care Team Providers Care Secretarial Teacher Name Role Phone Xiomara Manuel MD Primary Care Provider [phone] Reason for Referral * Consultation (Urgent) - Pending Review Specialty Diagnoses / Procedures Referred By Contariela haynes Referred To Contact Otolaryngology Diagnoses Bilateral otitis media with effusion Xiomara Manuel MD [address] [place] [address] Phone: tel: fax: Referral ID Status Reason Start Date Expiration Date Visits Requested Visits Authorized [id number] Pending Review Specialty Services Required 03/27/2024 03/27/2025 1 1 Encounter Details Date Type Department Care Team ([facility] st Contact Info) Description 03/27/2024 10:00 AM EST Office Visit [facility] MED & PEDS [address] [place] [address] Xiomara Manuel MD [address] [place] [address] Bilateral otitis media with effusion (Primary Dx) Social History Tobacco Use Types Packs/Day Years Used Date Smoking Tobacco: Never Passive Smoke Exposure: Never Smokeless Tobacco: Never Alcohol Use Standard Drinks/Week Comments Never 0 (1 standard drink = 0.6 oz pur e alcohol) Depression Answer Date Recorded Patient Health Questionnaire-9 Score 0 11/09/2022 Housing Stability Answer Date Recorded What is your housing situation today? I have lizbet sing 12/11/[address] you li [...] Mass Index 28.59 03/27/2024 10:15 AM EST documented in this encounter Progress Notes * Xiomara Manuel MD - 03/27/2024 10:00 AM EST Subjective Patient ID: Hailey Villanueva is a 33 y.o. female who presents for ear pain . Hailey is a 33-year-old female patient of mine here for persistent bilateral ear pain. Patient was seen at 2 different urgent care clinics for ear infections. Treated recently with amoxicillin for 10 days that she completed and then with eardrops. Patient has no fevers but cannot hear from eitherear at this time and pain in her right ear canal as well as hearing muffled sounds. Patient believes the eardrops made it worse. Review of Systems Constitutional: Negative for activity change, chills, fever and unexpected weight change. HENT: Positive for ear discharge, ear pain, hearing loss and sinus pain. Respiratory: Negative for cough, shortness of breath and wheezing. Cardiovascular: Negative for chest pain, palpitations and leg swelling. Gastrointestinal: Negative for abdominal pain and blood in stool. Endocrine: Negative for polydipsia and polyuria. Genitourinary: Negative for decreased urine volume, difficulty urinating, dysuria and hematuria. Musculoskeletal: Negative for arthralgias and gait problem. Skin: Negative for color change and rash. Neurological: Negative for dizziness, light-headedness and headaches. Hematological: Negative for adenopathy. Psychiatric/Behavioral: Negative for dysphoric mood, hallucinations, sleep disturbance and suicidalideas. The patient is not nervous/anxious. Objective BP (!) 138/97 (BP Location: Left arm, Patient Position: Sitting, BP Cuff Size: Adult) Pulse 92 Temp 98.1 ??F (36.7 ??C) (Oral) Resp 20 Ht 5' 8 (1.727 m) Wt 188 lb (85.3 kg) SpO2 98% BMI 28.59 kg/m?? Physical Exam Vitals reviewed. Constitutional: Appearance: She is not toxic-appearing. HENT: Head: Normocephalic. No right periorbital erythema or left periorbital erythema. Right Ear: External ear normal. Decreased hearing noted. Tenderness present. There is no impacted cerumen. No foreign body. No mastoid tenderness. No PE tube. Tympanic membrane is injected and erythematous. Left Ear: External ear normal. Decreased hearing noted. Drainage present. A middle ear effusion is present. There is no impacted cerumen. No foreign body. No mastoid tenderness. No PE tube. Tympanic membrane is scarred and erythematous. Nose: Nose normal. Cardiovascular: Rate and Rhythm: Normal rate and regular rhythm. Skin: Findings: No rash. Neurological: Mental Status: She is alert. Assessment/Plan Diagnoses and all orders for this visit: Bilateral otitis media with effusion Comments: Augmentin twice daily for 10 days and prednisone 20 mg daily given. Urgent ENT referral done as well. Return to clinic if worse or go to nearest ED. Orders: - Referral to ENT; Future Other orders - amoxicillin-clavulanate (Augmentin) 875-125 MG tablet; Take 1 tablet by mouth 2 times daily for 10 days. - predniSONE (Deltasone) 20 MG tablet; Take 1 tablet (20 mg) by mouth Once per day for 5 days. - ibuprofen 800 MG tablet; Take 1 tab orally tid prn pain with food intake documented in this encounter Plan of Treatment Upcoming Encounters Date Type Department Care Team (Late st Contact Info) Description 04/10/2024 10:00 AM EST Office Visit [facility] MED & PEDS [address] [place] [address] Xiomara Manuel MD [address] [place] [address] 04/11/2024 10:00 AM EST Office Visit [facility] ADULT DENTAL [address] [place] [address] Jess Jacobo 505 [place] [address] 06/24/2024 10:30 AM EDT Office Visit [facility] MED & PEDS [address] [place] [address] Xiomara Manuel MD [address] [place] [address] Scheduled Referrals Name Type Priority Associated Diagnoses Orde r Schedule Referral to ENT Outpatient Referral Urgent Bilateral otitis media with effusion Expected: 03/27/2024 (Approximate), Expires: 03/27/2025 documented as of this encounter Visit Diagnoses Diagnosis Bilateral otitis media with effusion- Primary Nonsuppurative otitis media, not specified as acute or chronic documented in this encounter Additional Health Concerns Assessment Noted Time PHQ-9 Depression Total Score: 0 11/10/19 23 2:58 PM EDT documented as of this encounter Care Teams Secretarial Teacher Relationship Specialty Start Date End Date Xiomara Manuel MD [address] [place] [address] PCP - General Family Medicine 04/16/18 documented as of this encounter
--- OUTSIDE RECORDS SUMMARY | 2024-03-27 12:17 | XMS_ITS | Encounter Summary ---
Author Organization [employer] Address 75 [facility] 7 [place] [address] Care Team Providers Care Laser Machine Operator Name Role Phone Xiomara Manuel MD Primary Care Provider [phone] Reason for Visit * Reason Onset Date Comments Nurse Triage 03/27/2024 Encounter Details Date Type Department Care Team ([facility] Contact Info) Description 03/27/2024 Telephone [facility] MEDICINE [address] [place] [address] Xiomara Manuel MD [address] [place], [place] [phone] Nurse Triage Social History Tobacco Use Types [...] encounter Miscellaneous Notes * Telephone Encounter - Palmira Cano RN - 03/27/2024 9:09 AM EST Call returned to Hailey Villanueva to triage below. Reports having bilateral ear pain. Pt also having left ear congestion. Pt denies any discharge. Pt denies any redness. Pt denies fever. Pt advisedof disposition, agrees to sick on site with PCP today. Protocol Used: Earache (Adult) Protocol-Based Disposition: See in Office or Video Visit Today or Tomorrow Future Appointments Date Time Provider Department Center 03/27/2024 10:00 AM Xiomara Manuel MD [facility] 04/11/2024 10:00 AM Jess Jacobo [facility] Insurance verified as active per Real Time Eligibility in [facility]. Positive Triage Question: * All other earaches (Exceptions: Brief ear pain lasting < 1 hour, and earache occurring during air travel.) * All higher-acuity triage questions were negative Care Advice Discussed: * Reassurance and Education - Earache * Reasons To Call Back - You become worse * Telephone Encounter - Chandni Snow - 03/27/2024 9:07 AM EST Symptom: Earache Outcome: Schedule an urgent appointment (within 1 hour) or talk to a nurse or provider soon Reason: Severe pain now The caller accepted this outcome. documented in this encounter Plan of Treatment Upcoming Encounters Date Type Department Care Team (Late st Contact Info) Description 04/10/2024 10:00 AM EST Office Visit [facility] MED & PEDS [address] [place] [address] Xiomara Manuel MD [address] [place] [address] 04/11/2024 10:00 AM EST Office Visit [facility] ADULT DENTAL [address] [place] [address] Juan Antonio Jacobopreet [address] [place] [address] 06/24/2024 10:30 AM EDT Office Visit [facility] MED & PEDS [address] [place] [address] Xiomara Manuel MD [address] [place] [address] documented as of this encounter Visit Diagnoses Not on filedocumented in this encounter Additional Health Concerns Assessment Noted Time PHQ-9 Depression Total Score: 0 11/10/19 23 2:58 PM EDT documented as of this encounter Care Teams Laser Machine Operator Relationship Specialty Start Date End Date Xiomara Manuel MD [address] [place] [address] PCP - General Family Medicine 04/16/18 documented as of this encounter
--- OUTSIDE RECORDS SUMMARY | 2024-03-27 12:17 | XMS_ITS | Encounter Summary ---
Author Organization [employer] Address 75 [facility] 7t [place] [address] Care Team Providers Care Jig Inspector Name Role Phone Xiomara Manuel MD Primary Care Provider [phone] Encounter Details Date Type Department Care Team (Latest Contact Info) Description 03/27/2024 Travel Social History Tobacco Use Types Packs/Day Years [...] Description 04/10/2024 10:00 AM EST Office Visit [facility] MED & PEDS [address] [place] [address] Xiomara Manuel MD [address] [place] [address] 04/11/2024 10:00 AM EST Office Visit [facility] ADULT DENTAL [address] [place] [address] Odalis, Juan Antoniopreet [address] [place] [address] 06/24/2024 10:30 AM EDT Office Visit [facility] MED & PEDS [address] [place] [address] Xiomara Manuel MD [address] [place] [address] documented as of this encounter Visit Diagnoses Not on filedocumented in this encounter Additional Health Concerns Assessment Noted Time PHQ-9 Depression Total Score: 0 11/10/19 23 2:58 PM EDT documented as of this encounter Care Teams Jig Inspector Relationship Specialty Start Date End Date Xiomara Manuel MD [address] [place] [address] PCP - General Family Medicine 04/16/18 documented as of this encounter
--- OUTSIDE RECORDS SUMMARY | 2024-03-27 12:17 | XMS_ITS | Encounter Summary ---
Author Organization [employer] Address 75 [facility] 7 [place] [address] Care Team Providers Care Timing Machine Operator Name Role Phone Xiomara Manuel MD Primary Care Provider [phone] Encounter Details Date Type Department Care Team ([facility] Contact Info) Description 10/26/2023 Orders Only [facility] CHC MED & PEDS [address] [place] [address] Xiomara Manuel MD [address] [place] [address] Social History Tobacco Use Types Packs/Day Years [...] Description 04/10/2024 10:00 AM EST Office Visit [facility] MED & PEDS [address] [place] [address] Xiomara Manuel MD [address] [place] [address] 04/11/2024 10:00 AM EST Office Visit [facility] ADULT DENTAL [address] [place] [address] Jacobo, Marisanpreet [address] [place] [address] 06/24/2024 10:30 AM EDT Office Visit [facility] MED & PEDS [address] [place] [address] Xiomara Manuel MD [address] [place] [address] documented as of this encounter Visit Diagnoses Not on filedocumented in this encounter Additional Health Concerns Assessment Noted Time PHQ-9 Depression Total Score: 0 11/10/19 2:58 PM EDT documented as of this encounter Care Teams Timing Machine Operator Relationship Specialty Start Date End Date Xiomara Manuel MD [address] [place] [address] PCP - General Family Medicine 04/16/18 documented as of this encounter
--- OUTSIDE RECORDS SUMMARY | 2024-03-27 12:17 | XMS_ITS | Encounter Summary ---
Author Organization [employer] Address 75 [facility] 7 [place] [address] Care Team Providers Care [employer]spring Former Brace End Name Role Phone Xiomara Manuel MD Primary Care Provider [phone] Reason for Visit * Reason Comments Med Refill Encounter Details Date Type Department Care Team ([facility] Contact Info) Description 02/25/2024 Refill [facility] CHC MED & PEDS [address] [place], [place] [phone] Xiomara Manuel MD [address] [place] [address] Social History Tobacco Use Types Packs/Day Years [...] Office Visit [facility] MED & PEDS [address] [place] [address] Xiomara Manuel MD [address] [place] [address] 04/11/2024 10:00 AM EST Office Visit [facility] ADULT DENTAL [address] [place] [address] Juan Antonio Jacobopreet 505 [place] [address] 06/24/2024 10:30 AM EDT Office Visit [facility] MED & PEDS [address] [place] [address] Xiomara Manuel MD [address] [place] [address] documented as of this encounter Visit Diagnoses Not on filedocumented in this encounter Additional Health Concerns Assessment Noted Time PHQ-9 Depression Total Score: 0 11/10/19 23 2:58 PM EDT documented as of this encounter Care Teams [employer] Former Brace End Relationship Specialty Start Date End Date Xiomara Manuel MD [address] [place] [address] PCP - General Family Medicine 04/16/18 documented as of this encounter
--- OUTSIDE RECORDS SUMMARY | 2024-03-27 12:17 | XMS_ITS | Encounter Summary ---
Author Organization [employer] Address 75 [facility] 7 [place] [address] Care Team Providers Care Land Surveying Survey Worker Name Role Phone Xiomara Manuel MD Primary Care Provider [phone] Encounter Details Date Type Department Care Team ([facility] Contact Info) Description 03/18/2024 Orders Only [facility] CHC MED & PEDS [address] [place] [address] Xiomara Manuel MD [address] [place] [address] Acquired hypothyroidism (Primary Dx) Social History Tobacco Use Types [...] Description 04/10/2024 10:00 AM EST Office Visit [facility] MED & PEDS [address] [place] [address] Xiomara Manuel MD [address] [place] [address] 04/11/2024 10:00 AM EST Office Visit [facility] ADULT DENTAL [address] [place] [address] Maris Jacoboanpreet [address] [place] [address] 06/24/2024 10:30 AM EDT Office Visit [facility] MED & PEDS [address] [place] [address] Xiomara Manuel MD [address] [place] [address] Scheduled Orders Name Type Priority Associated Diagnoses Orde r Schedule TSH W/Reflex to FT4 Lab Routine Acquired hypothyroidism Expected: 03/18/2024 (Approximate), Expires: 03/18/2025 documented as of this encounter Visit Diagnoses Diagnosis Acquired hypothyroidism- Primary Unspecified hypothyroidism documented in this encounter Additional Health Concerns Assessment Noted Time PHQ-9 Depression Total Score: 0 11/10/19 23 2:58 PM EDT documented as of this encounter Care Teams Land Surveying Survey Worker Relationship Specialty Start Date End Date Xiomara Manuel MD [address] [place] [address] PCP - General Family Medicine 04/16/18 documented as of this encounter
--- OUTSIDE RECORDS SUMMARY | 2024-03-27 12:17 | XMS_ITS | Encounter Summary ---
Author Organization [employer] Address [address] [place] [address] [facility] [place] [address] Care Team Providers Care Director Medicaid Name Role Phone Xiomara Manuel MD Primary Care Provider [phone] Encounter Details Date Type Department Care Team (Latest Contact Info) Description 01/21/2021 Abstract [facility] CONVERSIONS Dental, Provider, DDS Social History Tobacco Use Types Packs/Day Years [...] Upcoming Encounters Date Type Department Care Team ( st Contact Info) Description 04/10/2024 10:00 AM EST Office Visit [facility] MED & PEDS [address] [place] [address] Xiomara Manuel MD [address] [place] [address] 04/11/2024 10:00 AM EST Office Visit [facility] ADULT DENTAL [address] [place] [address] Jess Jacobo [address] [place] [address] 06/24/2024 10:30 AM EDT Office Visit [facility] MED & PEDS [address] [place] [address] Xiomara Manuel MD [address] [place] [address] documented as of this encounter Visit Diagnoses Not on filedocumented in this encounter Care Teams Director Medicaid Relationship Specialty Start Date End Date Xiomara Manuel MD [address] [place] [address] PCP - General Family Medicine 04/16/18 documented as of this encounter
--- OUTSIDE RECORDS SUMMARY | 2024-03-27 12:18 | XMS_ITS | Encounter Summary ---
Author Organization [employer] Address [address] [place] [address] 7 [place] [address] Care Team Providers Care Geological Science Teacher Name Role Phone Xiomara Manuel MD Primary Care Provider [phone] Encounter Details Date Type Department Care Team ([facility] Contact Info) Description 01/05/2022 Abstract [facility] MEDICINE [address] [place], [place] [phone] ProviderColette MD Social History Tobacco Use Types Packs/Day Years Used Date Smoking Tobacco: Never Passive Smoke Exposure: Never Smokeless Tobacco: Never Alcohol Use Standard Drinks/Week Comments Never 0 (1 standard drink = 0.6 oz pur e alcohol) Comments Unknown Sex and Gender Information Value [...] suspected to have Coronavirus/COVID-19? No / Unsure 01/05/2022 2:07 PM EST documented as of this encounter Plan of Treatment Upcoming Encounters Date Type Department Care Team ([facility] Contact Info) Description 04/10/2024 10:00 AM EST Office Visit [facility] CHC MED & PEDS [address] [place], [place] [phone] Xiomara Manuel MD [address] [place] [address] 04/11/2024 10:00 AM EST Office Visit [facility] ADULT DENTAL [address] [place] [address] Jess Jacobo [address] [place] [address] 06/24/2024 10:30 AM EDT Office Visit [facility] MED & PEDS [address] [place], [place] [phone] Xiomara Manuel MD [address] [place] [address] documented as of this encounter Visit Diagnoses Not on filedocumented in this encounter Care Teams Geological Science Teacher Relationship Specialty Start Date End Date Xiomara Manuel MD [address] [place] [address] PCP - General Family Medicine 04/16/18 documented as of this encounter
--- OUTSIDE RECORDS SUMMARY | 2024-03-27 12:18 | XMS_ITS | Encounter Summary ---
Author Organization [employer] Address 75 [facility] [place] [address] Care Team Providers Care Hiv/Aids Care Nurse Name Role Phone Xiomara Manuel MD Primary Care Provider [phone] Reason for Visit * Reason Onset Date Comments Referral 04/26/2022 Encounter Details Date Type Department Care Team ([facility] Contact Info) Description 04/26/2022 Telephone [facility] MEDICINE [address] [place] [address] Xiomara Manuel MD [address] [place], [place] [phone] Referral Social History Tobacco Use Types Packs/Day Years [...] suspected to have Coronavirus/COVID-19? No / Unsure 07/19/2022 2:43 PM EDT documented as of this encounter Miscellaneous Notes * Telephone Encounter - Raffaele Norris - 04/26/2022 9:08 AM EDT Tc from pt requesting status update on Allergy and Immunology. Lindsey. Location: [address] [place] [address]. Evaluate and treat, Bindery Machine Tender noticed status says pending since order date 12/18/21 Please contact at [phone] documented in this encounter Plan of Treatment Upcoming Encounters Date Type Department Care Team ([facility] Contact Info) Description 04/10/2024 10:00 AM EST Office Visit [facility] MED & PEDS [address] [place] [address] Xiomara Manuel MD [address] [place] [address] 04/11/2024 10:00 AM EST Office Visit [facility] ADULT DENTAL [address] [place] [address] Jess Jacobo 505 [place] [address] 06/24/2024 10:30 AM EDT Office Visit [facility] CHC MED & PEDS [address] [place] [address] Xiomara Manuel MD [address] [place] [address] documented as of this encounter Visit Diagnoses Not on filedocumented in this encounter Additional Health Concerns Assessment Noted Time PHQ-9 Depression Total Score: 0 02/01/20 22 11:02 AM EST documented as of this encounter Care Teams Hiv/Aids Care Nurse Relationship Specialty Start Date End Date Xiomara Manuel MD [address] [place] [address] PCP - General Family Medicine 04/16/18 documented as of this encounter
--- OUTSIDE RECORDS SUMMARY | 2024-03-27 12:18 | XMS_ITS | Encounter Summary ---
Author Organization [employer] Address [address] [place] [address] 7 [place] [address] Care Team Providers Care Team Manager Name Role Phone Xiomara Manuel MD Primary Care Provider [phone] Encounter Details Date Type Department Care Team ([facility] Contact Info) Description 01/05/2022 Abstract [facility] MEDICINE [address] [place], [place] [phone] ProviderColette MD Social History Tobacco Use Types [...] Upcoming Encounters Date Type Department Care Team ([facility] Contact Info) Description 04/10/2024 10:00 AM EST Office Visit [facility] CHC MED & PEDS [address] [place], [place] [phone] Xiomara Manuel MD [address] [place] [address] 04/11/2024 10:00 AM EST Office Visit [facility] ADULT DENTAL [address] [place] [address] Jess Jacobo [address] [place] [address] 06/24/2024 10:30 AM EDT Office Visit [facility] MED & PEDS [address] [place], [place] [phone] Xiomara Manuel MD [address] [place] [address] documented as of this encounter Visit Diagnoses Not on filedocumented in this encounter Care Teams Team Manager Relationship Specialty Start Date End Date Xiomara Manuel MD [address] [place] [address] PCP - General Family Medicine 04/16/18 documented as of this encounter
--- OUTSIDE RECORDS SUMMARY | 2024-03-27 12:18 | XMS_ITS | Encounter Summary ---
Author Organization [email or web address] Address [address] [place] [address] [place] [address] Care Team Providers Care Nightman Name Role Phone Xiomara Manuel MD Primary Care Provider Reason for Visit * Reason Onset Date Comments Med Refill 10/20/2022 Encounter Details Date Type Department Care Team ([facility] Contact Info) Description 10/20/2022 Refill [facility] [address] [place] [address] Morena Stockton FNP [address] [place] [address] Dept [place] [address] Injury of left knee, initial encounter; Laceration of left knee, initial encounter Social History Tobacco Use Types Packs/Day Years [...] Encounters Date Type Department Care Team (Late Contact Info) Description 04/10/2024 10:00 AM EST Office Visit [facility] MED & PEDS [address] [place] [address] Xiomara Manuel MD [address] [place] [address] 04/11/2024 10:00 AM EST Office Visit [facility] [address] [place] [address] Jess Jacobo [address] [place] [address] 06/24/2024 10:30 AM EDT Office Visit [facility] MED [facility] [address] [place] [address] Xiomara Manuel MD [address] [place] [address] documented as of this encounter Visit Diagnoses Diagnosis Injury of left knee, initial encounter Laceration of left knee, initial encounter documented in this encounter Additional Health Concerns Assessment Noted Time PHQ-9 Depression Total Score: 0 02/01/20 22 11:02 AM EST documented as of this encounter Care Teams Nightman Relationship Specialty Start Date End Date Xiomara Manuel MD [address] [place] [address] PCP - General Family Medicine 04/16/18 documented as of this encounter
--- OUTSIDE RECORDS SUMMARY | 2024-03-27 12:18 | XMS_ITS | Encounter Summary ---
Author Organization [employer] Address [address] [facility] [place] [address] Care Team Providers Care Patient Care Associate Name Role Phone Xiomara Manuel MD Primary Care Provider [phone] Reason for Visit * Reason Onset Date Comments Appointment Request 04/23/2023 Encounter Details Date Type Department Care Team ([facility] Contact Info) Description 04/23/2023 Telephone [facility] CH[facility] MED & PEDS [address] [place] [address] Xiomara Manuel MD [address] [place] [address] Appointment Request Social History Tobacco Use Types Packs/Day Years [...] encounter Miscellaneous Notes * Telephone Encounter - Emilia Baca - 04/23/2023 10:17 AM EDT Tc from pt requesting an appointment before 05/06 due to an upcoming surgery pt will be having. States she also has paperwork that needs to be filled out as well. Please contact pt at [phone] documented in this encounter Plan of Treatment Upcoming Encounters Date Type Department Care Team (Late st Contact Info) Description 04/10/2024 10:00 AM EST Office Visit [facility] MED & PEDS [address] [place] [address] Xiomara Manuel MD [address] [place] [address] 04/11/2024 10:00 AM EST Office Visit [facility] ADULT DENTAL [address] [place] [address] Jess Jacobo 505 [place] [address] 06/24/2024 10:30 AM EDT Office Visit [facility] MED & PEDS [address] [place] [address] Xiomara Manuel MD [address] [place] [address] documented as of this encounter Visit Diagnoses Not on filedocumented in this encounter Additional Health Concerns Assessment Noted Time PHQ-9 Depression Total Score: 0 11/10/19 23 2:58 PM EDT documented as of this encounter Care Teams Patient Care Associate Relationship Specialty Start Date End Date Xiomara Manuel MD [address] [place] [address] PCP - General Family Medicine 04/16/18 documented as of this encounter
--- OUTSIDE RECORDS SUMMARY | 2024-03-27 12:18 | XMS_ITS | Encounter Summary ---
Author Organization [employer] Address 75 [facility] [place] [address] Care Team Providers Care Packer And Carry Out Name Role Phone Xiomara Manuel MD Primary Care Provider [phone] Reason for Visit * Reason Onset Date Comments Appointment Request 03/05/2023 Encounter Details Date Type Department Care Team ([facility] Contact Info) Description 03/05/[address] [facility] [address] [place] [address] Xiomara Manuel MD [address] [place], [place] [phone] Appointment Request Social History Tobacco Use Types [...] encounter Miscellaneous Notes * Telephone Encounter - Josefa White - 03/09/2023 10:47 AM EST Tc from pt in regards below, pt is requesting the lab orders roman to get surgery. * Telephone Encounter - Liane Arredondo RN - 03/06/2023 11:27 AM EST Returned call to pt regarding message below. Pt states having discussed having her tubal ligation reversed in the past with PCP (unable to find documentation on this) and has some questions and concerns before scheduling surgery. Pt states having to pay OOP for procedure and is requesting a CBC andTSH due to pt hx of thyroid problems. Pt is scheduled for 03/22/23 with PCP for f/u and discuss questions pt has but pt is requesting lab orders be placed prior to appt. Pt informed message would be sent to PCP and pt would be informed of POC. Pt agrees with plan. * Telephone Encounter - Raffaele Norris - 03/05/2023 11:03 AM EST Tc from pt requesting to speak to PCP in regard to getting a Tubal ligation procedure, states discussed with PCP during last visit and has some further questions and concerns. Pt also is requesting lab work. Please contact at [phone] documented in this encounter Plan of Treatment Upcoming Encounters Date Type Department Care Team (Late st Contact Info) Description 04/10/2024 10:00 AM EST Office Visit [facility] MED & PEDS [address] [place] [address] Xiomara Manuel MD [address] [place] [address] 04/11/2024 10:00 AM EST Office Visit [facility] ADULT DENTAL [address] [place] [address] Samantha Jacoboet 505 [place] [address] 06/24/2024 10:30 AM EDT Office Visit [facility] MED & PEDS [address] [place] [address] Xiomara Manuel MD [address] [place] [address] documented as of this encounter Visit Diagnoses Not on filedocumented in this encounter Additional Health Concerns Assessment Noted Time PHQ-9 Depression Total Score: 0 11/10/19 23 2:58 PM EDT documented as of this encounter Care Teams Packer And Carry Out Relationship Specialty Start Date End Date Xiomara Manuel MD [address] [place] [address] PCP - General Family Medicine 04/16/18 documented as of this encounter
--- OUTSIDE RECORDS SUMMARY | 2024-03-27 12:18 | XMS_ITS | Encounter Summary ---
Author Organization [employer] Address [address] [place] [address] Care Team Providers Care Psychometrician Name Role Phone Xiomara Manuel MD Primary Care Provider [phone] Reason for Visit * Reason Onset Date Comments Med Refill 10/20/2022 Encounter Details Date Type Department Care Team ([facility] Contact Info) Description 10/20/2022 Refill [facility] MED & PEDS [address] [place] [address] Lorrie Cruz MD [address] [place] [address] Mild persistent asthma without complication Social History Tobacco Use [...] Upcoming Encounters Date Type Department Care Team ([facility] Contact Info) Description 04/10/2024 10:00 AM EST Office Visit [facility] CHC MED & PEDS [address] [place] [address] Xiomara Manuel MD [address] [place] [address] 04/11/2024 10:00 AM EST Office Visit [facility] ADULT DENTAL [address] [place] [address] Jess Jacobo [address] [place] [address] 06/24/2024 10:30 AM EDT Office Visit [facility] MED & PEDS [address] [place] [address] Xiomara aMnuel MD [address] [place] [address] documented as of this encounter Visit Diagnoses Diagnosis Mild persistent asthma without complication documented in this encounter Additional Health Concerns Assessment Noted Time PHQ-9 Depression Total Score: 0 02/01/20 22 11:02 AM EST documented as of this encounter Care Teams Psychometrician Relationship Specialty Start Date End Date Xiomara Manuel MD [address] [place] [address] PCP - General Family Medicine 04/16/18 documented as of this encounter
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
[2024-03-27 14:46] LABS: TSH reflex Free T4 0.57 uIU/mL (0.32-4.0)
== END 2024-03-27 11:00 | disposition home or self-care (01) ==
LOC: HO.CHCLDS 10:59
PROVIDERS: Visit Provider Pediatrics
DX: E03.9 Hypothyroidism, unspecified (principal)
CPT/HCPCS: 36415; 84443

== ENCOUNTER 2024-04-10 10:40 | Outpatient (REF) | payer MEDICAID, SELFPAY ==
--- OUTSIDE RECORDS SUMMARY | 2024-04-10 12:47 | XMS_ITS | Encounter Summary ---
Author Organization [employer] Address [address] [facility] 7 [place] [address] Care Team Providers Care Compressor Operator Adjuster Name Role Phone Xiomara Manuel MD Primary Care Provider [phone] Reason for Visit * Reason Comments Follow-up Ear pain Encounter Details Date Type Department Care Team ([facility] Contact Info) Description 04/10/2024 10:00 AM EST Office Visit [facility] MED & PEDS [address] [place] [address] Xiomara Manuel MD [address] [place] [address] Infertility counseling (Primary Dx); Bilateral otitis media with effusion Social History Tobacco Use Types Packs/Day Years Used Date Smoking Tobacco: Never Passive Smoke Exposure: Never Smokeless Tobacco: Never Alcohol Use Standard Drinks/Week Comments Never 0 (1 standard drink = 0.6 oz pur e alcohol) Depression Answer Date Recorded Patient Health Questionnaire-9 Score 0 11/09/2022 Housing Stability Answer Date Recorded What is your housing situation today? Not on inez e 04/10/[address] you li ve. Do you have problems with any of the following? None of the above 04/10/2024 Food Insecurity Answer Date Recorded Within the past 12 months, y ou worried that your food would run out before you got money to buy more: Never True 04/10/2024 Within the past 12 months,th e food you bought just didn't last and you didn't have enough money to get more: Never True 07/2024 Transportation Answer Date Recorded In the past 12 months, has l ack of transportation kept you from medical appts, meetings, work or from getting things needed for daily living? No 04/10/2024 Utilities Answer Date Recorded In the past 12 months, has t he electric, gas, oil or water company threatened to shut off services in your home? No 04/10/2024 Depression Answer Date Recorded Patient Health Questionnaire-2 Score 0 11/09/2022 Internet Access Answer Date Recorded Internet Access Q1 Yes 04/10/2024 Internet Access Q2 Not on file 04/10/2024 Comments Unknown Sex and Gender Information Value Date Recorded Sex Assigned at Female 12/05/2021 10:23 AM EDT Legal Sex Female 10:23 AM EDT Gender Identity Female 08/31/2023 3:46 PM EDT Sexual Orientation Straight 08/31/2023 3: 46 PM EDT documented as of this encounter Last Filed Vital Signs Vital Sign Reading Time Taken Comments Blood Pressure 126/92 04/10/2024 10:12 AM EST Pulse 92 04/10/2024 10:12 AM EST Temperature 36.7 ??C (98.1 ??F) 04/10/2024 10:[address] Respiratory Rate 18 04/10/2024 10:12 AM EST Oxygen Saturation 98% 04/10/2024 10:12 AM EST Inhaled Oxygen Concentration - - Weight 84.8 kg (187 lb) 04/10/2024 10:12 AM EST Height 172.7 cm (5' 8 ) 04/10/2024 10:12 AM EST Body Mass Index 28.43 04/10/2024 10:12 AM EST documented in this encounter Progress Notes * Xiomara Manuel MD - 04/10/2024 10:00 AM EST Subjective Patient ID: Hailey Villanueva is a 33 y.o. female who presents for Follow-up (Ear pain ). Hailey is a 33-year-old female patient of mine here for request for help with her ENT referral. Patient has chronic ear infections especially on the right side she was referred to ENT of [facility] last month and was told that even though the referral was done in an urgent manner it has to be faxed in another way. Patient denies fever and states feels somewhat better after the course of Augmentin and prednisone but still cannot hear much at all on that side and feels she has drainage of fluid every day. She is also requesting help getting fertility treatment. Review of Systems Constitutional: Negative for activity change, chills, fever and unexpected weight change. HENT: Positive for ear discharge and ear pain. Respiratory: Negative for cough, shortness of breath and wheezing. Cardiovascular: Negative for chest pain, palpitations and leg swelling. Gastrointestinal: Negative for abdominal pain and blood in stool. Endocrine: Negative for polydipsia and polyuria. Genitourinary: Negative for decreased urine volume, difficulty urinating, dysuria and hematuria. Musculoskeletal: Negative for arthralgias and gait problem. Skin: Negative for color change and rash. Neurological: Negative for dizziness and headaches. Hematological: Negative for adenopathy. Psychiatric/Behavioral: Negative for dysphoric mood, hallucinations, sleep disturbance and suicidalideas. The patient is not nervous/anxious. Objective BP (!) 126/92 (BP Location: Left arm, Patient Position: Sitting, BP Cuff Size: Adult) Pulse 92 Temp 98.1 ??F (36.7 ??C) (Oral) Resp 18 Ht 5' 8 (1.727 m) Wt 187 lb (84.8 kg) SpO2 98% BMI 28.43 kg/m?? Physical Exam Vitals reviewed. Constitutional: General: She is not in acute distress. Appearance: Normal appearance. HENT: Right Ear: Decreased hearing noted. No drainage. There is no impacted cerumen. Tympanic membrane isinjected, scarred and bulging. Left Ear: No drainage. There is no impacted cerumen. Tympanic membrane is injected. Eyes: Extraocular Movements: Extraocular movements intact. Conjunctiva/sclera: Conjunctivae normal. Pupils: Pupils are equal, round, and reactive to light. Cardiovascular: Rate and Rhythm: Normal rate and regular rhythm. Heart sounds: Normal heart sounds. Pulmonary: Effort: Pulmonary effort is normal. Breath sounds: Normal breath sounds. Neurological: Mental Status: She is alert. Assessment/Plan Diagnoses and all orders for this visit: Infertility counseling Comments: Patient has been seen at [facility] before. Last visit was in December. Phone number given as she was seen for this matter. No no new referral needed. Bilateral otitis media with effusion Comments: Has chronic problems with concerns of decreased hearing. Her ENT referral done last month will be faxed as requested. No new medication added. documented in this encounter Plan of Treatment Upcoming Encounters Date Type Department Care Team ([facility] st Contact Info) Description 06/24/2024 10:30 AM EDT Office Visit [facility] MED & PEDS [address] [place] [address] Xiomara Manuel MD [address] [place] [address] documented as of this encounter Visit Diagnoses Diagnosis Infertility counseling- Primary Bilateral otitis media with effusion Nonsuppurative otitis media, not specified as acute or chronic documented in this encounter Additional Health Concerns Assessment Noted Time PHQ-9 Depression Total Score: 0 11/10/19 23 2:58 PM EDT documented as of this encounter Care Teams Compressor Operator Adjuster Relationship Specialty Start Date End Date Xiomara Manuel MD [address] [place] [address] PCP - General Family Medicine 04/16/18 documented as of this encounter
--- OUTSIDE RECORDS SUMMARY | 2024-04-10 12:47 | XMS_ITS | Encounter Summary ---
Author Organization [employer] Address [address] [place] [address] [place] [address] Care Team Providers Care Hypoid Gear Tester Name Role Phone Xiomara Manuel MD Primary Care Provider [phone] Reason for Visit * Reason Onset Date Comments triage 02/08/2022 Encounter Details Date Type Department Care Team ([facility] Contact Info) Description 02/08/2022 Telephone [facility] MED & PEDS [address] [place], [place] [phone] Xiomara Manuel MD [address] [place] [address] triage Social History Tobacco Use Types Packs/Day [...] throat. Scheduled Pt to be seen in [facility] 02/08 @ 300pm, Insurance is verified as [...] Care Team (Late st Contact Info) Description 06/24/2024 10:30 AM EDT Office Visit [facility] MED & PEDS [address] [place], [place] [phone] Xiomara Manuel MD [address] [place], [place] [phone] documented as of this encounter Visit Diagnoses Not on filedocumented in this encounter Additional Health Concerns Assessment Noted Time PHQ-9 Depression Total Score: 0 02/01/20 22 11:02 AM EST documented as of this encounter Care Teams Hypoid Gear Tester Relationship Specialty Start Date End Date Xiomara Manuel MD [address] [place] [address] PCP - General Family Medicine 04/16/18 documented as of this encounter
--- OUTSIDE RECORDS SUMMARY | 2024-04-10 12:47 | XMS_ITS | Encounter Summary ---
Author Organization [employer] Address [address] [facility] 7 [place] [address] Care Team Providers Care Compressor Technician Name Role Phone Xiomara Manuel MD Primary Care Provider [phone] Reason for Visit * Reason Onset Date Comments Nurse Triage 03/27/2024 Encounter Details Date Type Department Care Team ([facility] st Contact Info) Description 03/27/2024 Telephone [facility] MEDICINE [address] [place] [address] Xiomara Manuel MD [address] [place], [place] [phone] Nurse Triage Social History Tobacco Use Types [...] Center 03/27/2024 10:00 AM Xiomara Manuel MD [facility] 04/11/2024 10:00 AM Jess Jacobo [facility] Insurance verified as active per [employer] Eligibility in Psychiatric. Positive Triage Question: * All other earaches [...] Description 06/24/2024 10:30 AM EDT Office Visit [facility] CHC MED & PEDS [address] [place] [address] Xiomara Manuel MD [address] [place] [address] documented as of this encounter Visit Diagnoses Not on filedocumented in this encounter Additional Health Concerns Assessment Noted Time PHQ-9 Depression Total Score: 0 11/10/19 2:58 PM EDT documented as of this encounter Care Teams Compressor Technician Relationship Specialty Start Date End Date Xiomara Manuel MD [address] [place] [address] PCP - General Family Medicine 04/16/18 documented as of this encounter
--- OUTSIDE RECORDS SUMMARY | 2024-04-10 12:47 | XMS_ITS | Encounter Summary ---
Author Organization [employer] Address [address] [place] [address] 7 [place] [address] Care Team Providers Care [facility] Name Role Phone Xiomara Manuel MD Primary Care Provider [phone] Encounter Details Date Type Department Care Team ([facility] Contact Info) Description 01/05/2022 Abstract [facility] MEDICINE [address] [place], [place] [phone] ProviderColette MD Social History Tobacco Use Types [...] Upcoming Encounters Date Type Department Care Team ([facility] Contact Info) Description 06/24/2024 10:30 AM EDT Office Visit [facility] CHC MED & PEDS [address] [place], [place] [phone] Xiomara Manuel MD [address] [place], [place] [phone] documented as of this encounter Visit Diagnoses Not on filedocumented in this encounter Care Teams [facility] Relationship Specialty Start Date End Date Xiomara Manuel MD [address] [place] [address] PCP - General Family Medicine 04/16/18 documented as of this encounter
--- OUTSIDE RECORDS SUMMARY | 2024-04-10 12:47 | XMS_ITS | Clinical Summary ---
Author Organization [employer] Address [address] [place] [address] 7 [place] [address] Care Team Providers Care Asset Accountant Name Role Phone Xiomara Manuel MD Primary Care Provider [phone] Allergies Active Allergy Reactions Criticality Noted Date [...] in the evening. 90 tablet 024 Active cholecalciferol (Vitamin D-3) 25 MCG (1000 [...] if needed for itching. 60 tablet 3 025 Active ibuprofen 800 MG tablet Take 1 tab orally tid prn pain with food intake 90 tablet 025 Active fluticasone furoate (Arnuity Ellipta) 100 MCG/ACT inhalerIndicati ons:Mild persistent asthma without complication Inhale 1 puff Once per day. 30 each 11 Active diphenhydrAMINE (BENADryl) 25 MG tabletIndicatio ns:Nasal [...] eorder (will not trigger notification to Pharmacy)) fluticasone (Flovent) 110 MCG/ACT inhalerIndicati ons:Mild persistent asthma without complication Inhale 1 puff in the morning and at bedtime. Rinse mouth with water after use to reduce aftertaste and incidence of candidiasis. Do not swallow. 12 g 2024 Discontinued(R eorder (will not trigger notification to Pharmacy)) albuterol (2.5 MG/3ML) 0.083% nebulizer solutionIndicat ions:Mild persistent asthma without complication TAKE 3 ML BY NEBULIZATION EVERY 8 (EIGHT) HOURS IF NEEDED FOR WHEEZING. 75 mL 2024 Discontinued(R eorder (will not trigger notification to Pharmacy)) neomycin-polymy ame-hydrocortis one (Cortisporin) 3.5-90610-7 otic suspensionIndic ations:Acute otitis externa of left ear, unspecified type Administer 3-4 drops into affected ear(s) 4 times daily for 7 days. 10 mL 1 025 2024 amoxicillin-cla vulanate (Augmentin) 875-125 MG tablet Take 1 tablet by mouth 2 times daily for 10 days. 20 tablet 025 2024 predniSONE (Deltasone) 20 MG tablet Take 1 tablet (20 mg) by mouth Once per day for 5 days. 5 tablet 025 2024 fluticasone (Flovent) 110 MCG/ACT inhalerIndicati ons:Mild persistent asthma without complication Inhale 1 puff in the morning and at bedtime. Rinse mouth with water after use to reduce aftertaste and incidence of candidiasis. Do not swallow. 12 g 11 025 2024 Discontinued Active Problems Problem Noted Date Diagnosed Date [...] tested negative for , was referred to ob-machine umbrella tipper for suspected endometriosis. Will place routine labs to evaluate other causes Allergies 01/04/2022 Assessment & Plan (03/13/2024 10:15 AM EST): Hx of allergies to medication, food, and environmental triggers Benadryl PRN Referral to re-establish with [facility] for further eval and management Lactose intolerance 08/17/2016 Asthma 08/17/2016 Assessment & Plan (04/16/2023 11:13 PM EDT): Asthma exacerbation likely tirggered by a respiratory infection and allergen exposure. Plan to increase the use of Albuterol and Fluticasone. Patient given course of oral steroids if no improvement. Encounters Date Type Department Care Team Description 04/10/2024 10:00 AM EST Office Visit [facility] [address] [place] [address] Xiomara Manuel MD Infertility counseling (Primary Dx); Bilateral otitis media with effusion 04/10/2024 Travel 04/02/2024 Refill [facility] [address] [place] [address] Xiomara Manuel MD Mild persistent asthma without complication 04/01/2024 Refill [facility] [address] [place] [address] Tessa [place] FNP Mild persistent asthma without complication 03/28/2024 Telephone [facility] [address] [place] [phone] Xiomara Manuel MD 03/28/2024 Telephone [facility] [address] [place] [phone] Xiomara Manuel MD 03/27/2024 10:00 AM EST Office Visit [facility] [address] [place] [address] Xiomara Manuel MD Bilateral otitis media with effusion (Primary Dx) 03/27/2024 Travel 03/27/2024 Telephone [facility] [address] [place] [address] Xiomara Manuel MD Nurse Triage 03/18/2024 Orders Only [facility] [address] [place] [address] Xiomara Manuel MD Acquired hypothyroidism (Primary Dx) 03/12/2024 5:20 PM EST Office Visit [facility] [address] [place] [address] La Hines FNP Allergies (Primary Dx); Nonintractable headache, unspecified chronicity pattern, unspecified headache type; Mild intermittent asthma without complication; Acute otitis externa of left ear, unspecified type; Elevated blood pressure reading 03/12/2024 Telephone [facility] [address] [place] [address] [phone] Xiomara Manuel MD Nurse Triage 03/03/2024 11:00 AM EST Office Visit [facility] [address] [place] [address] Rafia Tobias 02/25/2024 Refill [facility] [address] [place], [place] [phone] Xiomara Manuel MD 02/07/2024 1:40 PM EST Office Visit [facility] [address] [place], [place] [phone] Xiomara Manuel MD URI, acute (Primary Dx) 02/07/2024 Travel 02/07/[address] [phone] Xioamra Manuel MD Nurse Triage from Last 3 Months Immunizations Name Administration Dates Next Due Hep B, adult 08/26/2021 Influenza injectable quadriv alent IIV4 with preservative 10/12/2022,11/12/2018,10/31/2016 Influenza injectable quadriv alent preservative free 01/03/2021,01/10/2016,11/18/2014 Influenza, IIV3, injectable 01/10/2016, 5,03/22/2012 Influenza, seasonal, injecta ble, preservative free 03/22/2012 Influenza, trivalent, adjuvanted 03/22/2012 Moderna Covid-19 Vaccine 12+ 08/23/2021,01/04/20 21,09/01/2020 Pfizer Covid-19 Vaccine 12+ 08/23/2021, Pneumococcal Polysaccharide PPSV23 08/26/2021 Tdap 01/04/2015,2011 Social [...] Mass Index 28.43 04/10/2024 10:12 AM EST Plan of Treatment Upcoming Encounters Date Type Department Care Team ([facility] st Contact Info) Description 06/24/2024 10:30 AM EDT Office Visit [facility] [address] [place] [address] Xiomara Manuel MD [address] [place] [address] Health Maintenance Due Date Last Done Comments Alcohol/Substance Use Screening 2004 Family Planning (PISQ) 10/03/2007 Hepatitis B Vaccines (2 of 3 - 19+ 3-dose series) 09/23/2021 08/26/2021 Pneumococcal Vaccine: Pediatrics (0 to 5 Years) and At-Risk Patients (6 to 49) Years) (2 of 2 - PCV) 08/26/2022 08/26/2021 HPV/Cotest 2022 SDOH Screening 08/25/2023 08/24/2022 COVID-19 Vaccine ( - 2023- season) 2023 08/23/2021, 08/23/2021, 01/03/2021, Additional history exists Influenza Vaccine (#1) 2023 , 01/03/2021, 11/12/2018, Additional history exists Depression Screening 11/10/2023 11/09/2022, 11/10/19 Dental Oral Exam 09/01/2024 03/03/2024 Dental Prophylaxis 09/01/2024 03/03/2024, 06/21/2022 DTaP/Tdap/Td Vaccines (3 - Td or Tdap) 01/04/2025 01/04/2015, 2011 Cervical Cancer Screening 02/27/2025 Pap Smear 02/27/2025 02/27/2022, 0208/2021, 03/24/2021 Tobacco Screening 03/03/2025 03/03/2024 Dental X-Ray: [...] Procedure Name Priority Date/Time Associated Diagnosis Comments TSH W/REFLEX TO FT4 Routine 03/27/2024 1 1:00 AM EST Acquired hypothyroidism COMPREHENSIVE PERIODONTAL EVALUATION - NEW OR ESTABLISHED [...] EDT Routine general medical examination at a [facility] facility HIV ANTIBODY/ANTIGEN ([place] DPH) Routine 11/09/2022 3:15 PM EDT LIPID PANEL, STANDARD Routine 05/17/2022 9:35 AM EDT Overweight PAP SMEAR Routine 02/27/2022 2:02 PM EST Endometriosis from Last 3 Months or Most Recently Relevant to Health Maintenance Results * TSH W/Reflex to FT4 (03/27/2024 11:00 AM EST) TSH reflex Free T4 0.57 0.32 - 4.0 uIU/mL [facility] Blood Venous blood specimen / Unknown 03/27/2024 11:00 AM EST 03/27/2024 2:06 PM EST us Xiomara Manuel MD LAB BLOOD ORDERABLES Final Re sult [facility] [address] [place] [phone] * POCT Rapid Covid-19 BinaxNOW (02/07/2024 2:58 PM EST) [facility] Rapid COVID Ag Negative QC Media Lot # [id number] Lot# Expiration Date [id number] Swab 02/07/2024 2:58 PM EST Result [facility] us Xiomara Manuel MD POINT OF CARE TEST ENTER/EDIT ORDERABLES Final Result * POCT Rapid Influenza B OSOM (02/07/2024 2:57 PM EST) [facility] Rapid Influenza B Ag Negative Negative, Indeterminate QC Media Lot # [id number] Lot# Expiration Date ,025 Swab 02/07/2024 2:57 PM EST Result [facility] us Xiomara Manuel MD POINT OF CARE TEST ENTER/EDIT ORDERABLES Final Result * POCT Rapid Influenza A OSOM (02/07/2024 2:57 PM EST) [facility] Rapid Influenza A Ag Negative Negative, Indeterminate QC Media Lot # [id number] Lot# Expiration Date , Swab Nasopharyngeal structure / Unknown 02/07/2024 2:57 PM EST Result [facility] us Xiomara Manuel MD POINT OF CARE TEST ENTER/EDIT ORDERABLES Final Result * POCT Rapid Strep A OSOM (02/07/2024 2:57 PM EST) [facility] Rapid Strep A Screen Negative Negative, None Detected QC Media Lot # [id number] Lot# Expiration Date Swab 02/07/2024 2:57 PM EST Result [facility] us Xiomara Manuel MD POINT OF CARE TEST ENTER/EDIT ORDERABLES Final Result * SARS-CoV-2 RNA, Influenza A/B, and RSV RNA, Ql NAAT (02/07/2024 12:00 AM EST) [facility] Influenza A PCR NEGATIVE Negative [facility] Influenza B PCR NEGATIVE Negative [facility] Resp Syncy Virus RNA Qual PCR NEGATIVE Negative [facility] SARS COV2 PCR NEGATIVE Negative [facility] Comment:All test results mus t be [...] use by authorized laboratories.Testing performed on the [employer] GeneXpert utilizingreal-time RT-PCR.All SARS CoV2 and positive influenza A/B results arereported to [facility]. Swab Nasopharyngeal structure / Unknown 02/07/2024 02/07/2024 Xiomara Manuel MD LAB MICROBIOLOGY - GENERAL OR DERABLES Final Result [facility] [address] [place] [phone] [phone] * Respiratory Viral Panel PCR (02/07/2024 12:00 AM EST) Adenovirus PCR Not Detected Not Detect. [facility] Bordetella pertussis PCR Not Detected Not Detect. [facility] Comment:Interpret results wi th caution. If B. pertussis isspecifically suspected, additional testing using analternate method is recommended. Bordetella parapertussis PCR Not Detected Not Detect. [facility] Chlamydia pneumoniae PCR Not Detected Not Detect. [facility] Coronavirus 229E PCR Not Detected Not Detect. [facility] Coronavirus HKU1 PCR Not Detected Not Detect. [facility] Coronavirus NL63 PCR Not Detected Not Detect. [facility] Coronavirus OC43 PCR Not Detected Not Detect. [facility] SARS-CoV-2 PCR Not Detected Not Detect. [facility] Comment:SARS-CoV-2 not detec kay by real-time RT-PCR.Note: If clinical suspicion for Sars-CoV-2 is high, continueto maintain precautions and consider repeat testing.Test results should be interpreted in the context ofclinical findings and other laboratory data.Rare polymorphisms exist that could lead to false-negativeor false-positive results. If results do not match theclinical findings, additional testing should be considered.Results reported to [facility].This test has been authorized by the FDA under the EmergencyUse Authorization (EUA) for use by authorized laboratories. Influenza A PCR Not Detected Not Detect. [facility] Influenza B PCR Not Detected Not Detect. [facility] Human metapneumovirus PCR Not Detected Not Detect. [facility] Rhino/Enterovirus PCR Not Detected Not Detect. [facility] Mycoplasma pneumoniae PCR Not Detected Not Detect. [facility] Parainfluenza 1 PCR Not Detected Not Detect. [facility] Parainfluenza 2 PCR Not Detected Not Detect. [facility] Parainfluenza 3 PCR Not Detected Not Detect. [facility] Parainfluenza 4 PCR Not Detected Not Detect. [facility] RSV PCR Not Detected Not Detect. [facility] Resp Panel NA Note See Note H [facility] Comment:All results must be correlated [...] assay is performed by Multiplexed PCR, utilizing [employer] Array. Swab 02/07/2024 02/07/2024 us Xiomara Manuel MD LAB BLOOD ORDERABLES Final Re sult [facility] [address] [place] [phone] * Hepatitis C Antibody with Reflex to HCV, RNA, Quantitative, Real-Time PCR (08/17/2023 4:05 PM EDT) Pathologist [facility] Hepatitis C Antibody Nonreactive Nonreactive [facility] Comment:Antibodies to HCV no t detected; does not exclude early acuteHCV infection. Blood Venous blood specimen / Unknown 08/17/2023 4:05 PM EDT 08/17/2023 6:06 PM EDT Xiomara Manuel MD LAB BLOOD ORDERABLES Final Re sult Performing Organization Address [facility]/ZIP Co de Phone Number [facility] [address] [place] [phone] * HIV Ab/Ag ([facility]) (11/09/2022 3:15 PM EDT) [facility] HIV AB/AG Nonreactive Nonreactive [facility] Comment:HIV-1 p24 Ag and/or HIV-1/HIV-2 Ab not detected.A test result that is nonreactive does not exclude thepossibility of exposure to or infection with HIV-1 and/orHIV-2. Nonreactive results in this assay for individualswith prior exposure to HIV-1 and/or HIV-2 may be due toantigen and antibody levels that are below the limit ofdetection of this assay.The [employer] HIV Ag/Ab Combo assay result andsupplemental assay results should be interpreted inconjunction with the patient's clinical presentation,history and other laboratory results. If the results areinconsistent with clinical evidence, additional testing issuggested to confirm the result. 11/09/2022 3:15 PM EDT 11/09/2022 5:24 PM EDT us Xiomara Manuel MD LAB BLOOD ORDERABLES Final Re sult Performing Organization Address City/[facility]/ZIP Co de Phone Number [facility] [address] [place] [phone] * (ABNORMAL) Lipid Panel, Standard (05/17/2022 9:35 AM EDT) Cholesterol, Total 130 <200 mg/dL [employer] [place] [employer] HDL Cholesterol 39(L) > OR = 50 mg/dL [facility] [place] [email or web address] Triglycerides 105 <150 mg/dL [employer] [place] [employer] LDL Cholesterol 72 mg/dL (calc) [facility] [place] [email or web address] Comment: Reference range: <100 Desirable range <100 mg/dL for primary prevention; ?? <70 mg/dL for patients with CHD or diabetic patients with > or = 2 CHD risk factors. LDL-C is now calculated using the Racheal calculation, which is a validated novel method providing better accuracy than the Friedewald equation in the estimation of LDL-C. Minh MCFARLANE et al. KATIE. 2013;310(19): 2654-8789 (http://education.[employer]/faq/ZPJ537) Chol/HDLC Ratio 3.3 <5.0 (calc) [facility] [place] [employer] Non-HDL Cholesterol 91 <130 mg/dL (calc) [facility] [place] [facility] Comment: For patients with diabetes plus 1 major ASCVD risk factor, treating to a non-HDL-C goal of <100 mg/dL (LDL-C of <70 mg/dL) is considered a therapeutic option. Blood Venous blood specimen / Unknown 05/17/2022 9:35 AM EDT 05/17/2022 9:36 AM EDT Narrative [facility] - 05/18/2022 9:06 AM EDT FASTING:YES FASTING: YES us Nima Rick MD LAB BLOOD ORDERABL ES Final Result [facility] [address], [place] [address] [email or web address] [address] [place] [address] * Pap Smear (02/27/2022 2:02 PM EST) 02/27/2022 2:02 PM EST 02/28/2022 5:30 PM EST Narrative [facility] - 03/10/2022 6:28 PM EST ----- ------- Name: Hailey Villanueva ? Age/Sex: 31/F ? : 1990 Unit#: [id number] ?? Attend Dr: Rogerio Siu MD ?Re02/27/22 ?Status: DEP REF ? Location: HO.LNP ?Disch: ? ----- ------- SPEC : [id number] ? RECD: 02/28/22-173 ? STATUS: ??SOUT ? REQ NUM: [id number] ? WAYNE: 02/27/22-1402 ? SUBM DR: Rogerio [...] ?? [address] ?? [place] [address] ?? [phone] ?? Rogerio Siu MD ?? [address] [place] [address] [place] [address] ?? [place] [address] ?? [phone] ----- ------- Signed (signature on file) Judi Hylton Chelsi 03/10/22 3888 ? ----- ------- ? END OF REPORT ? [facility] External Provider LAB CYT OLOGY ORDERABLES Final Result [facility] [address] [place] [address] [phone] from Last 3 Months or Most Recently Relevant to Health Maintenance Insurance [facility] Care Teams Asset Accountant Relationship Specialty Start Date End Date Xiomara Manuel MD [address] [place] [address] [place] [address] PCP - General Family Medicine 04/16/18
--- OUTSIDE RECORDS SUMMARY | 2024-04-10 12:47 | XMS_ITS | Encounter Summary ---
Author Organization [email or web address] Address [address] [facility] 7 [place] [address] Care Team Providers Care Tube Man Name Role Phone Xiomara Manuel MD Primary Care Provider [phone] Encounter Details Date Type Department Care Team ([facility] Contact Info) Description 10/26/2023 Orders Only [facility] [address] [place] [address] Xiomara Manuel MD [address] [place] [address] Social History Tobacco Use Types Packs/Day Years [...] Description 06/24/2024 10:30 AM EDT Office Visit [facility] [address] [place] [address] Xiomara Manuel MD [address] [place] [address] documented as of this encounter Visit Diagnoses Not on filedocumented in this encounter Additional Health Concerns Assessment Noted Time PHQ-9 Depression Total Score: 0 11/10/19 23 2:58 PM EDT documented as of this encounter Care Teams Tube Man Relationship Specialty Start Date End Date Xiomara Manuel MD [address] [place] [address] PCP - General Family Medicine 04/16/18 documented as of this encounter
--- OUTSIDE RECORDS SUMMARY | 2024-04-10 12:47 | XMS_ITS | Encounter Summary ---
Author Organization [employer] Address [address] [facility] [address] [place] [address] Care Team Providers Care Survey Workers Supervisor Name Role Phone Xiomara Manuel MD Primary Care Provider [phone] Reason for Visit * Reason Onset Date Comments Med Refill 04/01/2024 Encounter Details Date Type Department Care Team ([facility] st Contact Info) Description 04/01/2024 Refill [facility] [address] [place] [address] Tessa [place] FNP [address] [place] [address] Mild persistent asthma without complication Social History [...] [facility] [address] [place] [address] Xiomara Manuel MD [address] [place] [address] documented as of this encounter Visit Diagnoses Diagnosis Mild persistent asthma without complication documented in this encounter Additional Health Concerns Assessment Noted Time PHQ-9 Depression Total Score: 0 11/10/19 23 2:58 PM EDT documented as of this encounter Care Teams Survey Workers Supervisor Relationship Specialty Start Date End Date Xiomara Manuel MD [address] [place] [address] PCP - General Family Medicine 04/16/18 documented as of this encounter
--- OUTSIDE RECORDS SUMMARY | 2024-04-10 12:47 | XMS_ITS | Encounter Summary ---
Author Organization [employer] Address [address] [facility] 7 [place] [address] Care Team Providers Care Cadence Specialists Name Role Phone Xiomara Manuel MD Primary Care Provider [phone] Encounter Details Date Type Department Care Team ([facility] Contact Info) Description 03/18/2024 Orders Only [facility] [address] [place] [address] Xiomara Manuel MD [address] [place] [address] Acquired hypothyroidism (Primary Dx) Social History Tobacco [...] Description 06/24/2024 10:30 AM EDT Office Visit [facility] [address] [place] [address] Xiomara Manuel MD [address] [place], [place] [phone] documented as of this encounter Procedures Procedure Name Priority Date/Time Associated Diagnosis Comments TSH W/REFLEX TO FT4 Routine 03/27/2024 11:00 AM EST Acquired hypothyroidism documented in this encounter Results * TSH W/Reflex to FT4 (03/27/2024 11:00 AM EST) TSH reflex Free T4 0.57 0.32 - 4.0 uIU/mL [facility] Blood Venous blood specimen / Unknown 03/27/2024 11:00 AM EST 03/27/2024 2:06 PM EST us Xiomara Manuel MD LAB BLOOD ORDERABLES Final Re sult [facility] [address] [place] [address] [phone] documented in this encounter Visit Diagnoses Diagnosis Acquired hypothyroidism- Primary Unspecified hypothyroidism documented in this encounter Additional Health Concerns Assessment Noted Time PHQ-9 Depression Total Score: 0 11/10/19 2:58 PM EDT documented as of this encounter Care Teams [employer] Specialists Relationship Specialty Start Date End Date Xiomara Manuel MD [address] [place] [phone] PCP - General Family Medicine 04/16/18 documented as of this encounter
--- OUTSIDE RECORDS SUMMARY | 2024-04-10 12:47 | XMS_ITS | Encounter Summary ---
Author Organization [employer] Address [address] [place] [address] [facility] [place] [address] Care Team Providers Care Sheet Roller Operator Name Role Phone Xiomara Manuel MD Primary Care Provider [phone] Reason for Referral * Consultation (Routine) - Pending Review Specialty Diagnoses / Procedures Referred By Contariela t Referred To Contact Allergy Diagnoses Allergic rhinitis, unspecified seasonality, unspecified trigger La Hines FNP [address] [place] [address] Phone: tel: fax: Yann Johns MD [address] [place] [address] Drive [address] [place] [address] Phone: tel: fax: Referral ID Status Reason Start Date Expiration Date Visits Requested Visits Authorized [id number] Pending Review Specialty Services Required 03/13/2024 03/13/2025 1 1 Reason for Visit * Reason Comments Walk-In Ear ache. Migraines Encounter Details Date Type Department Care Team ([facility] st Contact Info) Description 03/12/2024 5:20 PM EST Office Visit [facility] [address] [place], [place] [phone] La Hines FNP [address] [place], [place] [phone] Allergies (Primary Dx); Nonintractable headache, unspecified chronicity [...] this encounter Progress Notes * La Hines, SALOON KEEPER - 03/12/2024 5:20 PM EST Subjective: Hailey [...] left ear pain. 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 Has found the [employer] most helpful in [...] as list included below. Previously following with head boys tennis coach and receiving allergy injections. Interested in returning [...] SE - Follow up precautions Relevant Medications euryxgmrdo-xmxijcjkepjcp-tzhjyxju 50-325-40 MG tablet Respiratory Asthma Relevant Medications albuterol 108 (90 Base) MCG/ACT inhaler albuterol (2.5 MG/3ML) 0.083% nebulizer solution Other Allergies - Primary Current Assessment & Plan Hx of allergies to medication, food, and environmental triggers Benadryl PRN Referral to re-establish with [facility] for further eval and management Relevant Medications diphenhydrAMINE (BENADryl) 25 MG tablet Other Visit Diagnoses Acute otitis externa of left ear, unspecified type - Start cortisporin otic drops. F/up with any persistence or worsening of symptoms. Relevant Medications eqhqcvtm-gmxiwvaul-wrppkjaybutots (Cortisporin) 3.5-59416-5 otic suspension Elevated blood pressure reading - [...] triggers Benadryl PRN Referral to re-establish with [facility] for further eval and management * Assessment [...] Description 06/24/2024 10:30 AM EDT Office Visit [facility] [address] [place] [address] Xiomara Manuel MD [address] [place] [address] Scheduled Referrals Name Type Priority Associated Diagnoses [...] documented as of this encounter Care Teams Sheet Roller Operator Relationship Specialty Start Date End Date Xiomaar Manuel MD [address] [place] [address] PCP - General Family Medicine 04/16/18 documented as of this encounter
--- OUTSIDE RECORDS SUMMARY | 2024-04-10 12:47 | XMS_ITS | Encounter Summary ---
Author Organization [employer] Address [address] [place] [address] [place] [address] Care Team Providers Care Food Preparation Supervisor Name Role Phone Xiomara Manuel MD Primary Care Provider [phone] Reason for Visit * Reason Onset Date Comments Med Refill 10/20/2022 Encounter Details Date Type Department Care Team ([facility] Contact Info) Description 10/20/2022 Refill [facility] [address] [place] [address] Lorrie Cruz MD [address] [place] [address] Mild persistent asthma without complication Social History [...] Upcoming Encounters Date Type Department Care Team ([facility] Contact Info) Description 06/24/2024 10:30 AM EDT Office Visit [facility] [address] [place] [address] Xiomara Manuel MD 505 [place] [address] documented as of this encounter Visit Diagnoses Diagnosis Mild persistent asthma without complication documented in this encounter Additional Health Concerns Assessment Noted Time PHQ-9 Depression Total Score: 0 02/01/20 22 11:02 AM EST documented as of this encounter Care Teams Food Preparation Supervisor Relationship Specialty Start Date End Date Xiomara Manuel MD 505 [place] [address] PCP - General Family Medicine 04/16/18 documented as of this encounter
--- OUTSIDE RECORDS SUMMARY | 2024-04-10 12:47 | XMS_ITS | Encounter Summary ---
Author Organization [employer] Address [address] [place] [address] 7 [place] [address] Care Team Providers Care Punch Finisher Name Role Phone Xiomara Manuel MD Primary Care Provider [phone] Encounter Details Date Type Department Care Team ([facility] Contact Info) Description 01/05/[address] [facility] [address] [place], [place] [phone] ProviderColette MD Social History Tobacco Use Types [...] Upcoming Encounters Date Type Department Care Team ([facility] Contact Info) Description 06/24/2024 10:30 [address] EDT [address] [facility] MED & PEDS [address] [place], [place] [phone] Xiomara Manuel MD 505 [place], [place] [phone] documented as of this encounter Visit Diagnoses Not on filedocumented in this encounter Care Teams Punch Finisher Relationship Specialty Start Date End Date Xiomara Manuel MD [address] [place] [address] PCP - General Family Medicine 04/16/18 documented as of this encounter
--- OUTSIDE RECORDS SUMMARY | 2024-04-10 12:47 | XMS_ITS | Encounter Summary ---
Author Organization [employer] Address 75 [facility] 7t [place] [address] Care Team Providers Care Consulting Software Engineer Name Role Phone Xiomara Manuel MD Primary Care Provider [phone] Encounter Details Date Type Department Care Team [...] 06/24/2024 10:30 AM EDT Office Visit [facility] MED [facility] 505 [place] [address] Xiomara Manuel MD 505 [place] [address] documented as of this encounter Visit Diagnoses Not on filedocumented in this encounter Additional Health Concerns Assessment Noted Time PHQ-9 Depression Total Score: 0 11/10/19 2:58 PM EDT documented as of this encounter Care Teams Consulting Software Engineer Relationship Specialty Start Date End Date Xiomara Manuel MD 505 [place] [address] PCP - General Family Medicine 04/16/18 documented as of this encounter
--- OUTSIDE RECORDS SUMMARY | 2024-04-10 12:47 | XMS_ITS | Encounter Summary ---
Author Organization [employer] Address 75 [facility] 7t [place] [address] Care Team Providers Care Cdl Truck Driver Name Role Phone Xiomara Manuel MD Primary Care Provider [phone] Encounter Details Date Type Department Care Team ([facility] Contact Info) Description 03/28/2024 Telephone [facility] [address] [place] [address] Xiomara Manuel MD [address] [place], [place] [phone] Social History Tobacco Use Types Packs/Day Years [...] encounter Miscellaneous Notes * Telephone Encounter - Liane Arredondo RN - 03/28/2024 3:15 PM EST Forms received requesting RMV paperwork for tinted windows due to photosensitivity. Please advise if her conditions warrant this. documented in this encounter Plan of Treatment Upcoming Encounters Date Type Department Care Team (Late st Contact Info) Description 06/24/2024 10:30 AM EDT Office Visit [facility] MED [facility] 505 [place] [address] Xiomara Manuel MD [address] [place] [address] documented as of this encounter Visit Diagnoses Not on filedocumented in this encounter Additional Health Concerns Assessment Noted Time PHQ-9 Depression Total Score: 0 11/10/19 23 2:58 PM EDT documented as of this encounter Care Teams Cdl Truck Driver Relationship Specialty Start Date End Date Xiomara Manuel MD [address] [place] [address] PCP - General Family Medicine 04/16/18 documented as of this encounter
--- OUTSIDE RECORDS SUMMARY | 2024-04-10 12:47 | XMS_ITS | Encounter Summary ---
Author Organization [employer] Address [address] [facility] 7t [place] [address] Care Team Providers Care Warehouse Freight Handler Name Role Phone Xiomara Manuel MD Primary Care Provider [phone] Encounter Details Date Type Department Care Team ([facility] Contact Info) Description 03/28/2024 Telephone [facility] [address] [place] [address] Xiomara Manuel MD [address] [place], [place] [phone] Social History Tobacco Use Types Packs/Day Years [...] encounter Miscellaneous Notes * Telephone Encounter - Stephanie Rosado RN - 03/28/2024 10:04 AM EST TC placed to pt to inform of below provider message. Pt verbalized understanding and denies questions or concerns at this time. ----- Message from Xiomara Manuel MD sent at 03/28/2024 6:40 AM EST ----- Please inform patient that her current dose of levothyroxine is adequate per latest TSH result fromyesterday and should be continued as is.Thanks documented in this encounter Plan of Treatment Upcoming Encounters Date Type Department Care Team (Late st Contact Info) Description 06/24/2024 10:30 AM EDT Office Visit [facility] MED & PEDS [address] [place] [address] Xiomara Manuel MD [address] [place] [address] documented as of this encounter Visit Diagnoses Not on filedocumented in this encounter Additional Health Concerns Assessment Noted Time PHQ-9 Depression Total Score: 0 11/10/19 23 2:58 PM EDT documented as of this encounter Care Teams Warehouse Freight Handler Relationship Specialty Start Date End Date Xiomara Manuel MD [address] [place] [address] PCP - General Family Medicine 04/16/18 documented as of this encounter
--- OUTSIDE RECORDS SUMMARY | 2024-04-10 12:47 | XMS_ITS | Encounter Summary ---
Author Organization [employer] Address [address] [place] [address] [place] [address] Care Team Providers Care Manufacturing Engineering Intern Name Role Phone Xiomara Manuel MD Primary Care Provider [phone] Reason for Referral * Consultation (Urgent) - Closed Specialty Diagnoses / Procedures Referred By Contac t Referred To Contact Otolaryngology Diagnoses Bilateral otitis media with effusion Xiomara Manuel MD [address] [place] [address] Phone: tel: fax: [facility] [address] Phone: tel: fax: Referral ID Status Reason Start Date Expiration Date V isits Requested Visits Authorized [id number] Closed Specialty Services Required 03/27/2024 03/27/2025 1 1 Encounter Details Date Type Department Care Team ([facility] st Contact Info) Description 03/27/2024 10:00 AM EST Office Visit [facility] [address] [place] [address] Xiomara Manuel MD [address] [place] [address] Bilateral otitis media with effusion (Primary Dx) [...] Office Visit [facility] [address] [place] [address] Xiomara Manuel MD [address] [place] [address] Pending Results Name Type Priority Associated Diagnoses Date /Time Referral to ENT Outpatient Referral Urgent Bilateral otitis media with effusion 03/28/2024 Scheduled Referrals Name Type Priority Associated Diagnoses [...] documented as of this encounter Care Teams Manufacturing Engineering Intern Relationship Specialty Start Date End Date Xiomara Manuel MD [address] [place] [address] PCP - General Family Medicine 04/16/18 documented as of this encounter
--- OUTSIDE RECORDS SUMMARY | 2024-04-10 12:47 | XMS_ITS | Encounter Summary ---
Author Organization [employer] Address [address] [facility] 7 [place] [address] Care Team Providers Care Bank Examiner Name Role Phone Xiomara Manuel MD Primary Care Provider [phone] Reason for Visit * Reason Onset Date Comments Nurse Triage 03/12/2024 Encounter Details Date Type Department Care Team ([facility] st Contact Info) Description 03/12/2024 Telephone [facility] [address] [place] [address] Xiomara Manuel MD [address] [place], [place] [phone] Nurse Triage Social History Tobacco Use Types [...] refill. Pt is advised no apt in [facility] today but, may have [facility] openings tomorrow. Pt is advised to come to [facility] today open till 8pm and a provider [...] Getting worse The caller accepted this outcome. [phone] documented in this encounter Plan of Treatment Upcoming Encounters Date Type Department Care Team ([facility] st Contact Info) Description 06/24/2024 10:30 AM EDT Office Visit [facility] 505 [place] [address] Xiomara Manuel MD [address] [place] [address] documented as of this encounter Visit Diagnoses Not on filedocumented in this encounter Additional Health Concerns Assessment Noted Time PHQ-9 Depression Total Score: 0 11/10/19 23 2:58 PM EDT documented as of this encounter Care Teams Bank Examiner Relationship Specialty Start Date End Date Xiomara Manuel MD [address] [place] [address] PCP - General Family Medicine 04/16/18 documented as of this encounter
--- OUTSIDE RECORDS SUMMARY | 2024-04-10 12:47 | XMS_ITS | Encounter Summary ---
Author Organization [employer] Address [address] [place] [address] 7 [place] [address] Care Team Providers Care Flight Inspector Name Role Phone Xiomara Manuel MD Primary Care Provider [phone] Reason for Visit * Reason Onset Date Comments Med Refill 10/20/2022 Encounter Details Date Type Department Care Team ([facility] Contact Info) Description 10/20/2022 Refill [facility] 230 [place] [address] Morena Stockton FNP [address] [place] [address] [place] [address] Injury of left knee, initial encounter; Laceration [...] Department Care Team (Late Contact Info) Description 06/24/2024 10:30 AM EDT Office Visit [facility]ED[facility] [address] [place] [address] Xiomara Manuel MD [address] [place] [address] documented as of this encounter Visit Diagnoses Diagnosis Injury of left knee, initial encounter Laceration of left knee, initial encounter documented in this encounter Additional Health Concerns Assessment Noted Time PHQ-9 Depression Total Score: 0 02/01/20 22 11:02 AM EST documented as of this encounter Care Teams Flight Inspector Relationship Specialty Start Date End Date Ximoara Manuel MD [address] [place] [address] PCP - General Family Medicine 04/16/18 documented as of this encounter
--- OUTSIDE RECORDS SUMMARY | 2024-04-10 12:47 | XMS_ITS | Encounter Summary ---
Author Organization [employer] Address [address] [facility] 7 [place] [address] Care Team Providers Care Spray Gun Striper Name Role Phone Xiomara Manuel MD Primary Care Provider [phone] Encounter Details Date Type Department Care Team ([facility] Contact Info) Description 07/04/2022 Abstract [facility] [address] [place], [place] [phone] Eva Katerina [address] [place] [address] Social History Tobacco Use Types Packs/Day Years [...] Upcoming Encounters Date Type Department Care Team ([facility] Contact Info) Description 06/24/2024 10:30 AM EDT Office Visit [facility] 505 [place], [place] [phone] Xiomara Manuel MD 505 [place] [address] documented as of this encounter Visit Diagnoses Not on filedocumented in this encounter Additional Health Concerns Assessment Noted Time PHQ-9 Depression Total Score: 0 02/01/20 22 11:02 AM EST documented as of this encounter Care Teams Spray Gun Striper Relationship Specialty Start Date End Date Xiomara Manuel MD 505 [place] [address] PCP - General Family Medicine 04/16/18 documented as of this encounter
--- OUTSIDE RECORDS SUMMARY | 2024-04-10 12:47 | XMS_ITS | Encounter Summary ---
Author Organization [employer] Address 75 [facility] 7t [place] [address] Care Team Providers Care Animal Killer Name Role Phone Xiomara Manuel MD Primary Care Provider [phone] Encounter Details Date Type Department Care Team (Latest Contact Info) Description 04/10/2024 Travel Social History Tobacco Use Types Packs/Day [...] Description 06/24/2024 10:30 AM EDT Office Visit [facility] 505 [place] [address] Xiomara Manuel MD 505 [place] [address] documented as of this encounter Visit Diagnoses Not on filedocumented in this encounter Additional Health Concerns Assessment Noted Time PHQ-9 Depression Total Score: 0 11/10/19 23 2:58 PM EDT documented as of this encounter Care Teams Animal Killer Relationship Specialty Start Date End Date Xiomara Manuel MD 505 [place] [address] PCP - General Family Medicine 04/16/18 documented as of this encounter
--- OUTSIDE RECORDS SUMMARY | 2024-04-10 12:47 | XMS_ITS | Encounter Summary ---
Author Organization [employer] Address [address] [facility] [place] [address] Care Team Providers Care Diagnostics Sales Developer Name Role Phone Xiomara Manuel MD Primary Care Provider [phone] Reason for Visit * Reason Onset Date Comments Appointment Request 04/23/2023 Encounter Details Date Type Department Care Team ([facility] Contact Info) Description 04/23/2023 Telephone [facility] 505 [place] [address] Xiomara Manuel MD [address] [place] [address] Appointment Request Social History Tobacco Use Types [...] out as well. Please contact pt at [phone] documented in this encounter Plan of Treatment Upcoming Encounters Date Type Department Care Team (Late st Contact Info) Description 06/24/2024 10:30 AM EDT Office Visit [facility] 505 [place] [address] Xiomara Manuel MD [address] [place] [address] documented as of this encounter Visit Diagnoses Not on filedocumented in this encounter Additional Health Concerns Assessment Noted Time PHQ-9 Depression Total Score: 0 11/10/19 23 2:58 PM EDT documented as of this encounter Care Teams Diagnostics Sales Developer Relationship Specialty Start Date End Date Xiomara Manuel MD [address] [place] [address] PCP - General Family Medicine 04/16/18 documented as of this encounter
--- OUTSIDE RECORDS SUMMARY | 2024-04-10 12:47 | XMS_ITS | Encounter Summary ---
Author Organization [employer] Address [address] [place] [address] [place] [address] Care Team Providers Care Board Layer Name Role Phone Xiomara Manuel MD Primary Care Provider [phone] Encounter Details Date Type Department Care Team (Latest Contact Info) Description 01/21/[address] [facility] CONVERSIONS Dental, Provider, DDS Social [...] Upcoming Encounters Date Type Department Care Team ([facility] st Contact Info) Description 06/24/2024 10:30 AM EDT Office Visit [facility] MED & PEDS [address] [place] [address] Xiomara Manuel MD 505 [place] [address] documented as of this encounter Visit Diagnoses Not on filedocumented in this encounter Care Teams Board Layer Relationship Specialty Start Date End Date Xiomara Manuel MD 505 [place] [address] PCP - General Family Medicine 04/16/18 documented as of this encounter
--- OUTSIDE RECORDS SUMMARY | 2024-04-10 12:47 | XMS_ITS | Clinical Summary ---
Author Organization [facility] Address [id number] [place] [id number] Care Team Providers Care Advanced Clinical Specialist Name Role Phone Unavailable Primary Care Provider [...]
--- OUTSIDE RECORDS SUMMARY | 2024-04-10 12:47 | XMS_ITS | Encounter Summary ---
Author Organization [employer] Address [address] [facility] 7t [place] [address] Care Team Providers Care Airfreight Operations Agent Name Role Phone Xiomara Manuel MD Primary Care Provider [phone] Reason for Visit * Reason Comments Med Change Request Encounter Details Date Type Department Care Team ([facility] st Contact Info) Description 09/04/2023 Refill [facility] [address] [place], [place] [phone] Tessa Houston FNP [address] [place] [address] Mild intermittent asthma without complication Social History [...] [facility] [address] [place] [address] Xiomara Manuel MD 505 [place] [address] documented as of this encounter Visit Diagnoses Diagnosis Mild intermittent asthma without complication documented in this encounter Additional Health Concerns Assessment Noted Time PHQ-9 Depression Total Score: 0 11/10/19 2:58 PM EDT documented as of this encounter Care Teams Airfreight Operations Agent Relationship Specialty Start Date End Date Xiomara Manuel MD 505 [place] [address] PCP - General Family Medicine 04/16/18 documented as of this encounter
--- OUTSIDE RECORDS SUMMARY | 2024-04-10 12:47 | XMS_ITS | Encounter Summary ---
Author Organization [employer] Address 75 [facility] 7 [place] [address] Care Team Providers Care Submarine Advisory Team Watch Officer Name Role Phone Xiomara Manuel MD Primary Care Provider [phone] Reason for Visit * Reason Comments Med Change Request Encounter Details Date Type Department Care Team ([facility] st Contact Info) Description 04/02/2024 Refill [facility] 230 [place] [address] Xiomara Manuel MD [address] [place], [place] [phone] Mild persistent asthma without complication Social History [...] Description 06/24/2024 10:30 AM EDT Office Visit [facility] MED [facility] PED[facility] 505 [place] [address] Xiomara Manuel MD [address] [place] [address] documented as of this encounter Visit Diagnoses Diagnosis Mild persistent asthma without complication documented in this encounter Additional Health Concerns Assessment Noted Time PHQ-9 Depression Total Score: 0 11/10/19 2:58 PM EDT documented as of this encounter Care Teams Submarine Advisory Team Watch Officer Relationship Specialty Start Date End Date Xiomara Manuel MD 505 [place] [address] PCP - General Family Medicine 04/16/18 documented as of this encounter
[2024-04-10 14:52] LABS: HCG Quantitative < 2 mIU/mL
== END 2024-04-10 10:41 | disposition home or self-care (01) ==
LOC: HO.CHCLDS 10:40
PROVIDERS: Visit Provider Pediatrics
DX: Z32.00 Encounter for pregnancy test, result unknown (principal)
CPT/HCPCS: 36415; 84702

== ENCOUNTER 2024-04-15 10:41 | Outpatient (REF) | payer MEDICAID, SELFPAY ==
--- OUTSIDE RECORDS SUMMARY | 2024-04-15 12:48 | XMS_ITS | Encounter Summary ---
Author Organization [employer] Address [address] [place] [address] [place] [address] Care Team Providers Care Derrick Boat Lever Operator Name Role Phone Xiomara Manuel MD Primary Care Provider [phone] Reason for Referral * Consultation (Urgent) - Closed Specialty Diagnoses / Procedures Referred By Contac t Referred To Contact Otolaryngology Diagnoses Bilateral otitis media with effusion Xiomara Manuel MD [address] [place] [address] Phone: tel: fax: [facility] [address] Phone: tel: fax: Referral ID Status Reason Start Date Expiration Date V isits Requested Visits Authorized [id number] Closed Specialty Services Required 03/27/2024 03/27/2025 1 1 Encounter Details Date Type Department Care Team ([facility] st Contact Info) Description 03/27/2024 10:00 AM EST Office Visit [facility]ED[facility] [address] [place] [address] Xiomara Manuel MD [address] [place] [address] Bilateral otitis media with effusion (Primary Dx) [...] 10:30 AM EDT Office Visit [facility] MED & PED[facility] [address] [place] [address] Xiomara Manuel MD [address] [place] [address] Pending Results Name Type Priority Associated Diagnoses [...] documented as of this encounter Care Teams Derrick Boat Lever Operator Relationship Specialty Start Date End Date Xiomara Manuel MD [address] [place] [address] PCP - General Family Medicine 04/16/18 documented as of this encounter
--- OUTSIDE RECORDS SUMMARY | 2024-04-15 12:48 | XMS_ITS | Encounter Summary ---
Author Organization [employer] Address [address] [facility] 7t [place] [address] Care Team Providers Care Cotton Classer Aide Name Role Phone Xiomara Manuel MD Primary Care Provider [phone] Encounter Details Date Type Department Care Team [...] Description 06/24/2024 10:30 AM EDT Office Visit [facility] [address] [place] [address] Xiomara Manuel MD [address] [place] [address] documented as of this encounter Visit Diagnoses Not on filedocumented in this encounter Additional Health Concerns Assessment Noted Time PHQ-9 Depression Total Score: 0 11/10/19 2:58 PM EDT documented as of this encounter Care Teams Cotton Classer Aide Relationship Specialty Start Date End Date Xiomara Manuel MD [address] [place] [address] PCP - General Family Medicine 04/16/18 documented as of this encounter
--- OUTSIDE RECORDS SUMMARY | 2024-04-15 12:48 | XMS_ITS | Clinical Summary ---
Author Organization [employer] Address [address] [place] [address] 7 [place] [address] Care Team Providers Care Commission Associate Name Role Phone Xiomara Manuel MD Primary Care Provider [phone] Allergies Active Allergy Reactions Criticality Noted Date [...] puff Once per day. 30 each 11 025 Active fluticasone (Flovent) 110 MCG/ACT inhalerIndicati ons:Mild persistent asthma without complication Inhale 1 puff in the morning and at bedtime. Rinse mouth with water after use to reduce aftertaste and incidence of candidiasis. Do not swallow. 12 g 11 024 2024 Discontinued(R eorder (will not trigger notification to Pharmacy)) neomycin-polymy ame-hydrocortis one (Cortisporin) 3.5-40654-2 otic suspensionIndic ations:Acute otitis externa of left [...] send pelvic US. Also schedule f/u with Ezequielardini. Recommended f/u with PCP. Myopia of both eyes 01/04/2022 Overweight 01/04/2022 Assessment & Plan (05/16/2022 8:58 AM EDT): Patient complains of increased abdominal irth without any other complain (fever/chills, abdominal pain, diarrhea, constipation, nause/vomiting), she had a pelvic ultrasound on the past month, also tested negative for , was referred to ob-reading interventionist for suspected endometriosis. Will place routine labs to evaluate other causes Allergies 01/04/2022 Assessment & Plan (03/13/2024 10:15 AM EST): Hx of allergies to medication, food, and environmental triggers Benadryl PRN Referral to re-establish with Automotive Technician for further eval and management Lactose intolerance 08/17/2016 Asthma 08/17/2016 Assessment & Plan (04/16/2023 11:13 PM EDT): Asthma exacerbation likely tirggered by a respiratory infection and allergen exposure. Plan to increase the use of Albuterol and Fluticasone. Patient given course of oral steroids if no improvement. Encounters Date Type Department Care Team Description 04/10/2024 10:00 AM EST Office Visit [facility] [address] [place] [address] Xiomara Manuel MD Infertility counseling (Primary Dx); Bilateral otitis media with effusion 04/10/2024 Travel 04/02/[address] [facility] [address] [place] [phone] Xiomara Manuel MD Mild persistent asthma without complication 04/01/[address] [facility] [address] [place] [address] Tessa [place] FNP Mild persistent asthma without complication 03/28/[address] [facility] [address] [place] [phone] Xiomara Manuel MD 03/28/[address] [address] Xiomara Manuel MD 03/27/2024 10:00 AM EST Office Visit [facility] [address] [place] [address] Xiomara Manuel MD Bilateral otitis media with effusion (Primary Dx) 03/27/2024 Travel 03/27/[address] [address] Xiomara Manuel MD Nurse Triage 03/18/2024 Orders Only [facility] [address] [place] [address] Xiomara Manuel MD Acquired hypothyroidism (Primary Dx) 03/12/2024 5:20 PM EST Office Visit [facility] [address] [address] La Hines FNP Allergies (Primary Dx); Nonintractable headache, unspecified chronicity pattern, unspecified headache type; Mild intermittent asthma without complication; Acute otitis externa of left ear, unspecified type; Elevated blood pressure reading 03/12/[address] [address] Xiomara Manuel MD Nurse Triage 03/03/2024 11:00 AM EST Office Visit [facility] [address] [place] [address] Rafia Tobias 02/25/2024 Refill [facility] [address] [place] [address] Xiomara Manuel MD 02/07/2024 1:40 PM EST Office Visit [facility] [address] [place] [address] Xiomara Manuel MD URI, acute (Primary Dx) 02/07/2024 Travel 02/07/[address] [facility] [address] [place], [place] [phone] Xiomara Manuel MD Nurse Triage from Last [...] AM EDT Office Visit [facility] [address] [place] [address] Xiomara Manuel MD [address] [place] [address] Health Maintenance Due Date Last Done Comments [...] Procedure Name Priority Date/Time Associated Diagnosis Comments HCG, TOTAL, QN Routine 04/10/2024 10:44 AM EST Encounter for test, result unknown TSH W/REFLEX TO FT4 Routine 03/27/2024 1 [...] Recently Relevant to Health Maintenance Results * hCG, Total, Quantitative (04/10/2024 10:44 AM EST) HCG Quantitative <2 mIU/mL [facility] Comment:Weeks post LMP Appr oximate hCG(Last Menstrual Period) Range (mIU/ml)3 - 4 weeks 9 - 1304 - 5 weeks 75 - 2,6005 - 6 weeks 850 - 20,8006 - 7 weeks 4000 - 100,2007 - 12 weeks 11,500 - 289,18525 - 16 weeks 18,300 - 137,01893 - 29 weeks (2nd trimester) 1,400 - 53,30755 - 41 weeks (3rd trimester) 940 - 60,000The Larose B-hCG assay is used for the early detection ofpregnancy; it cannot be used to diagnose any conditionunrelated to . If a B-hCG level is not supportedby the clinical evidence, results should be confirmed by analternative method (qualitative urine hCG, for example). Blood Venous blood specimen / Unknown 04/10/2024 10:44 AM EST 04/10/2024 2:12 PM EST us Xiomara Manuel MD LAB BLOOD ORDERABLES Final Re sult [facility] [address] [place] [phone] * TSH W/Reflex to FT4 (03/27/2024 11:00 AM EST) TSH reflex Free T4 0.57 0.32 - 4.0 uIU/mL [facility] Blood Venous blood specimen / Unknown 03/27/2024 11:00 AM EST 03/27/2024 2:06 PM EST Result Stefan Manuel MD LAB BLOOD ORDERABLES Final Re sult [facility] [address] [place] [phone] * POCT Rapid Covid-19 BinaxNOW (02/07/2024 2:58 PM EST) [facility] Rapid COVID Ag Negative QC Media Lot # [id number] Lot# Expiration Date [id number] Swab 02/07/2024 2:58 PM EST Result Stefan Manuel MD POINT OF CARE TEST ENTER/EDIT ORDERABLES Final Result * POCT Rapid Influenza B OSOM (02/07/2024 2:57 PM EST) [facility] Rapid Influenza B Ag Negative Negative, Indeterminate QC Media Lot # [id number] Lot# Expiration Date Swab 02/07/2024 2:57 PM EST Result [facility] us Xiomara Manuel MD POINT OF CARE TEST ENTER/EDIT ORDERABLES Final Result * POCT Rapid Influenza A OSOM (02/07/2024 2:57 PM EST) [facility] Rapid Influenza A Ag Negative Negative, Indeterminate QC Media Lot # [id number] Lot# Expiration Date Swab Nasopharyngeal structure / Unknown 02/07/2024 2:57 PM EST us Xiomara Manuel MD POINT OF CARE TEST ENTER/EDIT ORDERABLES Final Result * POCT Rapid Strep A OSOM (02/07/2024 2:57 PM EST) [facility] Rapid Strep A Screen Negative Negative, None Detected QC Media Lot # [id number] Lot# Expiration Date [id number] Swab 02/07/2024 2:57 PM EST Xiomara Manuel MD POINT OF CARE TEST ENTER/EDIT ORDERABLES Final Result * SARS-CoV-2 RNA, Influenza A/B, and RSV RNA, Ql NAAT (02/07/2024 12:00 AM EST) Influenza A PCR NEGATIVE Negative [facility] Influenza B PCR NEGATIVE Negative [facility] Resp Syncy Virus RNA Qual PCR NEGATIVE Negative [facility] SARS COV2 PCR NEGATIVE Negative [facility] Comment:All test results mus t be [...] use by authorized laboratories.Testing performed on the [employer] GeneXpert utilizingreal-time RT-PCR.All SARS CoV2 and positive influenza A/B results arereported to [facility]. Swab Nasopharyngeal structure / Unknown 02/07/2024 02/07/2024 Xiomara Manuel MD LAB MICROBIOLOGY - GENERAL OR DERABLES Final Result [facility] [address] [place] [phone] * Respiratory Viral Panel PCR (02/07/2024 12:00 AM EST) Pathologist [facility] Adenovirus PCR Not Detected Not Detect. [facility] Bordetella pertussis PCR Not Detected Not Detect. [facility] Comment:Interpret results wi th caution. If B. pertussis isspecifically suspected, additional testing using analternate method is recommended. Bordetella parapertussis PCR Not Detected Not Detect. [facility] Chlamydia pneumoniae PCR Not Detected Not Detect. [facility] Coronavirus 229E PCR Not Detected Not Detect. [facility] Coronavirus HKU1 PCR Not Detected Not Detect. [facility] Coronavirus NL63 PCR Not Detected Not Detect. [facility] Coronavirus OC43 PCR Not Detected Not Detect. [facility] SARS-CoV-2 PCR Not Detected Not Detect. [facility] Comment:SARS-CoV-2 not detec kay by real-time RT-PCR.Note: If clinical suspicion for Sars-CoV-2 is high, continueto maintain precautions and consider repeat testing.Test results should be interpreted in the context ofclinical findings and other laboratory data.Rare polymorphisms exist that could lead to false-negativeor false-positive results. If results do not match theclinical findings, additional testing should be considered.Results reported to [facility].This test has been authorized by the FDA under the EmergencyUse Authorization (EUA) for use by authorized laboratories. Influenza A PCR Not Detected Not Detect. [facility] Influenza B PCR Not Detected Not Detect. [facility] Human metapneumovirus PCR Not Detected Not Detect. [facility] Rhino/Enterovirus PCR Not Detected Not Detect. [facility] Mycoplasma pneumoniae PCR Not Detected Not Detect. [facility] Parainfluenza 1 PCR Not Detected Not Detect. [facility] Parainfluenza 2 PCR Not Detected Not Detect. [facility] Parainfluenza 3 PCR Not Detected Not Detect. [facility] Parainfluenza 4 PCR Not Detected Not Detect. [facility] RSV PCR Not Detected Not Detect. [facility] Resp Panel NA Note See Note [facility] Comment:All results must be correlated with [...] assay is performed by Multiplexed PCR, utilizing Cycle Film Array. Swab 02/07/2024 02/07/2024 Xiomara Manuel MD LAB BLOOD ORDERABLES Final Re sult Performing Organization Address [facility] Co de Phone Number [facility] [address] [place] [phone] * Hepatitis C Antibody with Reflex to HCV, RNA, Quantitative, Real-Time PCR (08/17/2023 4:05 PM EDT) Hepatitis C Antibody Nonreactive Nonreactive [facility] Comment:Antibodies to HCV no t detected; does not exclude early acuteHCV infection. Blood Venous blood specimen / Unknown 08/17/2023 4:05 PM EDT 08/17/2023 6:06 PM EDT Xiomara Manuel MD LAB BLOOD ORDERABLES Final Re sult Performing Organization Address [facility] Co de Phone Number [facility] [address] [place] [phone] * HIV Ab/Ag (SCOTT NAVARRO) (11/09/2022 3:15 PM EDT) HIV AB/AG Nonreactive Nonreactive [facility] Comment:HIV-1 p24 Ag and/or HIV-1/HIV-2 Ab not detected.A test result that is nonreactive does not exclude thepossibility of exposure to or infection with HIV-1 and/orHIV-2. Nonreactive results in this assay for individualswith prior exposure to HIV-1 and/or HIV-2 may be due toantigen and antibody levels that are below the limit ofdetection of this assay.The [employer] HIV Ag/Ab Combo assay result andsupplemental assay results should be interpreted inconjunction with the patient's clinical presentation,history and other laboratory results. If the results areinconsistent with clinical evidence, additional testing issuggested to confirm the result. 11/09/2022 3:15 PM EDT 11/09/2022 5:24 PM EDT Xiomara Manuel MD LAB BLOOD ORDERABLES Final Re sult [facility] [address] [place] [phone] * (ABNORMAL) Lipid Panel, Standard (05/17/2022 9:35 AM EDT) [facility] Cholesterol, Total 130 <200 mg/dL [employer] [place] [facility] HDL Cholesterol 39(L) > OR = 50 mg/dL [employer] [place] [facility] Triglycerides 105 <150 mg/dL [employer] [place] [facility] LDL Cholesterol 72 mg/dL (calc) [employer] [facility] Comment: Reference range: <100 Desirable range <100 mg/dL for primary prevention; ?? <70 mg/dL for patients with CHD or diabetic patients with > or = 2 CHD risk factors. LDL-C is now calculated using the Minh-Perry calculation, which is a validated novel method providing better accuracy than the Friedewald equation in the estimation of LDL-C. Minh SS et al. KATIE. 2013;310(19): 2830-1786 (http://education.UZwan/faq/PEL552) Chol/HDLC Ratio 3.3 <5.0 (calc) [employer] [place] [facility] Non-HDL Cholesterol 91 <130 mg/dL (calc) [employer] [facility] Comment: For patients with diabetes plus 1 major ASCVD risk factor, treating to a non-HDL-C goal of <100 mg/dL (LDL-C of <70 mg/dL) is considered a therapeutic option. Blood Venous blood specimen / Unknown 05/17/2022 9:35 AM EDT 05/17/2022 9:36 AM EDT Narrative [facility] - 05/18/2022 9:06 AM EDT FASTING:YES FASTING: YES us Nima Rick MD LAB BLOOD ORDERABL ES Final Result [facility] [address], [place] [address] [facility] [address] [place] [phone] * Pap Smear (02/27/2022 2:02 PM EST) 02/27/2022 2:02 PM EST 02/28/2022 5:30 PM EST [facility] - 03/10/2022 6:28 PM EST ----- ------- Name: Hailey Villanueva ? Age/Sex: 31/F ? : 1990 Unit#: [id number] ?? Attend Dr: Rogerio Siu MD ?Re02/27/22 ?Status: DEP REF ? Location: HO.LNP ?Disch: ? ----- ------- SPEC : [id number] ? RECD: 02/28/22 ? STATUS: ??SOUT ? REQ NUM: [id number] ? WAYNE: 02/27/22-2 ? SUBM DR: Rogerio Siu MD ? ENTERED: ??02/28/22 ?SP TYPE: Pap Smr ?OTHR DR: Xiomara Manuel MD ? ORDERED: ??Pap Smear ? Interpretation ?? Satisfactory for evaluation. ?? Negative for intraepithelial lesion or malignancy. ?Clinical Information LMP: 02/2022 Previous PAP test: Unknown ? Material Received ?? ThinPrep-Cervical Copies To: ?? Xiomara Manuel MD ?? [address] ?? [place] [address] ?? [phone] ?? Rogerio Siu MD ?? [address] [facility] [address] ?? [place] [address] ?? [phone] ----- ------- Signed (signature on file) Judi Gagnon 03/10/22 1828 ? ----- ------- ? END OF REPORT ? [facility] External Provider LAB [facility] [place] Final Result Performing Organization Address City/State/[facility] Co de Phone Number [facility] [address] [place] [phone] from Last 3 Months or Most Recently Relevant to Health Maintenance Insurance [facility] STAND[facility] D[facility] - [facility] Care Teams Commission Associate Relationship Specialty Start Date End Date Xiomara Manuel MD [address] [place] [address] [place] [address] PCP - General Family Medicine 04/16/18
--- OUTSIDE RECORDS SUMMARY | 2024-04-15 12:48 | XMS_ITS | Encounter Summary ---
Author Organization [employer] Address [address] [facility] 7 [place] [address] Care Team Providers Care Facilities Specialist Name Role Phone Xiomara Manuel MD Primary Care Provider [phone] Encounter Details Date Type Department Care Team ([facility] Contact Info) Description 10/26/2023 Orders Only [facility] [address] [place] [address] Xiomara Manuel MD [address] [place] [address] Social History Tobacco Use Types Packs/Day Years [...] Description 06/24/2024 10:30 AM EDT Office Visit [facility] [address] [place] [address] Xiomara Manuel MD [address] [place] [address] documented as of this encounter Visit Diagnoses Not on filedocumented in this encounter Additional Health Concerns Assessment Noted Time PHQ-9 Depression Total Score: 0 11/10/19 23 2:58 PM EDT documented as of this encounter Care Teams Facilities Specialist Relationship Specialty Start Date End Date Xiomara Manuel MD [address] [place] [address] PCP - General Family Medicine 04/16/18 documented as of this encounter
--- OUTSIDE RECORDS SUMMARY | 2024-04-15 12:48 | XMS_ITS | Encounter Summary ---
Author Organization [employer] Address [address] [facility] 7 [place] [address] Care Team Providers Care Airbrush Artist Photography Name Role Phone Xiomara Manuel MD Primary Care Provider [phone] Reason for Visit * Reason Onset Date Comments Nurse Triage 03/12/2024 Encounter Details Date Type Department Care Team ([facility] st Contact Info) Description 03/12/2024 Telephone [facility] [address] [place] [address] Xiomara Manuel MD [address] [place], [place] [phone] Nurse Triage Social History Tobacco Use Types [...] refill. [facility] but, may have [facility] openings tomorrow. Pt is advised to come to [facility] today open till 8pm and a [...] Getting worse The caller accepted this outcome. [phone] documented in this encounter Plan of Treatment Upcoming Encounters Date Type Department Care Team ([facility] st Contact Info) Description 06/24/2024 10:30 AM EDT Office Visit [facility] [address] [place] [address] Xiomara Manuel MD [address] [place] [address] documented as of this encounter Visit Diagnoses Not on filedocumented in this encounter Additional Health Concerns Assessment Noted Time PHQ-9 Depression Total Score: 0 11/10/19 23 2:58 PM EDT documented as of this encounter Care Teams Airbrush Artist Photography Relationship Specialty Start Date End Date Xiomara Manuel MD [address] [place] [address] PCP - General Family Medicine 04/16/18 documented as of this encounter
--- OUTSIDE RECORDS SUMMARY | 2024-04-15 12:49 | XMS_ITS | Encounter Summary ---
Author Organization [employer] Address [address] [facility] 7 [place] [address] Care Team Providers Care Cutter Hand Name Role Phone Xiomara Manuel MD Primary Care Provider [phone] Reason for Visit * Reason Onset Date Comments Appointment Request 04/23/2023 Encounter Details Date Type Department Care Team ([facility] Contact Info) Description 04/23/2023 Telephone [facility] [address] [place] [address] Xiomara Manuel MD [address] [place] [address] Appointment Request Social History Tobacco Use Types [...] out as well. Please contact pt at [phone] documented in this encounter Plan of Treatment Upcoming Encounters Date Type Department Care Team (Late st Contact Info) Description 06/24/2024 10:30 AM EDT Office Visit [facility] [address] [place] [address] Xiomara Manuel MD [address] [place] [address] documented as of this encounter Visit Diagnoses Not on filedocumented in this encounter Additional Health Concerns Assessment Noted Time PHQ-9 Depression Total Score: 0 11/10/19 23 2:58 PM EDT documented as of this encounter Care Teams Cutter Hand Relationship Specialty Start Date End Date Xiomara Manuel MD [address] [place] [address] PCP - General Family Medicine 04/16/18 documented as of this encounter
--- OUTSIDE RECORDS SUMMARY | 2024-04-15 12:49 | XMS_ITS | Encounter Summary ---
Author Organization [employer] Address [address] [facility] 7 [place] [address] Care Team Providers Care Gyn Name Role Phone Xiomara Manuel MD Primary Care Provider [phone] Encounter Details Date Type Department Care Team ([facility] Contact Info) Description 07/04/2022 Abstract [facility] [address] [place], [place] [phone] Eva Katerina [address] [place] [address] Social History Tobacco Use Types Packs/Day Years [...] Upcoming Encounters Date Type Department Care Team ([facility] Contact Info) Description 06/24/2024 10:30 AM EDT Office Visit [facility] [address] [place], [place] [phone] Xiomara Manuel MD [address] [place] [address] documented as of this encounter Visit Diagnoses Not on filedocumented in this encounter Additional Health Concerns Assessment Noted Time PHQ-9 Depression Total Score: 0 02/01/20 22 11:02 AM EST documented as of this encounter Care Teams Gyn Relationship Specialty Start Date End Date Xiomara Manuel MD [address] [place] [address] PCP - General Family Medicine 04/16/18 documented as of this encounter
--- OUTSIDE RECORDS SUMMARY | 2024-04-15 12:49 | XMS_ITS | Encounter Summary ---
Author Organization [employer] Address 75 [facility] 7t [place] [address] Care Team Providers Care Vegetable Farmer Name Role Phone Xiomara Manuel MD Primary Care Provider [phone] Reason for Visit * Reason Onset Date Comments Med Refill 04/01/2024 Encounter Details Date Type Department Care Team ([facility] st Contact Info) Description 04/01/2024 Refill [facility] [address] [place] [address] Tessa [place] FNP [address] [place] [address] Mild persistent asthma without complication Social History [...] Description 06/24/2024 10:30 AM EDT Office Visit [facility] [address] [place] [address] Xiomara Manuel MD [address] [place] [address] documented as of this encounter Visit Diagnoses Diagnosis Mild persistent asthma without complication documented in this encounter Additional Health Concerns Assessment Noted Time PHQ-9 Depression Total Score: 0 11/10/19 23 2:58 PM EDT documented as of this encounter Care Teams Vegetable Farmer Relationship Specialty Start Date End Date Xiomara Manuel MD [address] [place] [address] PCP - General Family Medicine 04/16/18 documented as of this encounter
--- OUTSIDE RECORDS SUMMARY | 2024-04-15 12:49 | XMS_ITS | Encounter Summary ---
Author Organization [employer] Address [address] [facility] 7t [place] [address] Care Team Providers Care Automobile Bumper Straightener Name Role Phone Xiomara Manuel MD Primary Care Provider [phone] Encounter Details Date Type Department Care Team ([facility] Contact Info) Description 03/28/2024 Telephone [facility] MEDICINE [address] [place] [address] Xiomara Manuel MD [address] [place], [place] [phone] Social History Tobacco Use Types Packs/Day Years [...] Description 06/24/2024 10:30 AM EDT Office Visit [facility] CH[facility] MED & PEDS 505 [place] [address] Xiomara Manuel MD [address] [place] [address] documented as of this encounter Visit Diagnoses Not on filedocumented in this encounter Additional Health Concerns Assessment Noted Time PHQ-9 Depression Total Score: 0 11/10/19 23 2:58 PM EDT documented as of this encounter Care Teams Automobile Bumper Straightener Relationship Specialty Start Date End Date Xiomara Manuel MD [address] [place] [address] PCP - General Family Medicine 04/16/18 documented as of this encounter
--- OUTSIDE RECORDS SUMMARY | 2024-04-15 12:49 | XMS_ITS | Encounter Summary ---
Author Organization [employer] Address [address] [place] [address] 7 [place] [address] Care Team Providers Care Deliver Driver Name Role Phone Xiomara Manuel MD Primary Care Provider [phone] Encounter Details Date Type Department Care Team ([facility] Contact Info) Description 01/05/2022 Abstract [facility] MEDICINE [address] [place], [place] [phone] ProviderColette MD Social History Tobacco Use Types [...] Upcoming Encounters Date Type Department Care Team ([facility] Contact Info) Description 06/24/2024 10:30 AM EDT Office Visit [facility] CHC MED & PEDS [address] [place], [place] [phone] Xiomara Manuel MD 505 [place], [place] [phone] documented as of this encounter Visit Diagnoses Not on filedocumented in this encounter Care Teams Deliver Driver Relationship Specialty Start Date End Date Xiomara Manuel MD [address] [place] [address] PCP - General Family Medicine 04/16/18 documented as of this encounter
--- OUTSIDE RECORDS SUMMARY | 2024-04-15 12:49 | XMS_ITS | Encounter Summary ---
Author Organization [employer] Address [address] [place] [address] [place] [address] Care Team Providers Care Match Up Person Name Role Phone Xiomara Manuel MD Primary Care Provider [phone] Reason for Visit * Reason Onset Date Comments triage 02/08/2022 Encounter Details Date Type Department Care Team ([facility] Contact Info) Description 02/08/2022 Telephone [facility] CHC MED & PEDS [address] [place], [place] [phone] Xiomara Manuel MD [address] [place] [address] triage Social History Tobacco Use Types Packs/Day [...] throat. Scheduled Pt to be seen in [facility] 02/08 @ 300pm, Insurance is [...] 06/24/2024 10:30 AM EDT Office Visit [facility] MED & PEDS [address] [place], [place] [phone] Xiomara Manuel MD [address] [place], [place] [phone] documented as of this encounter Visit Diagnoses Not on filedocumented in this encounter Additional Health Concerns Assessment Noted Time PHQ-9 Depression Total Score: 0 02/01/20 22 11:02 AM EST documented as of this encounter Care Teams Match Up Person Relationship Specialty Start Date End Date Xiomara Manuel MD 505 [place] [address] PCP - General Family Medicine 04/16/18 documented as of this encounter
--- OUTSIDE RECORDS SUMMARY | 2024-04-15 12:49 | XMS_ITS | Encounter Summary ---
Author Organization [employer] Address [address] [facility] 7t [place] [address] Care Team Providers Care Director Of Training Name Role Phone Xiomara Manuel MD Primary Care Provider [phone] Encounter Details Date Type Department Care Team ([facility] Contact Info) Description 03/28/2024 Telephone [facility] PEDIATRICS [address] [place] [address] Xiomara Manuel MD [address] [place], [place] [phone] Social History Tobacco Use Types Packs/Day Years [...] Description 06/24/2024 10:30 AM EDT Office Visit [facility] MED & PEDS 505 [place] [address] Xiomara Manuel MD 505 [place] [address] documented as of this encounter Visit Diagnoses Not on filedocumented in this encounter Additional Health Concerns Assessment Noted Time PHQ-9 Depression Total Score: 0 11/10/19 23 2:58 PM EDT documented as of this encounter Care Teams Director Of Training Relationship Specialty Start Date End Date Xiomara Manuel MD [address] [place] [address] PCP - General Family Medicine 04/16/18 documented as of this encounter
--- OUTSIDE RECORDS SUMMARY | 2024-04-15 12:49 | XMS_ITS | Encounter Summary ---
Author Organization [employer] Address 75 [facility] 7 [place] [address] Care Team Providers Care Assembler Handbags Name Role Phone Xiomara Manuel MD Primary Care Provider [phone] Reason for Visit * Reason Comments Follow-up Ear pain Encounter Details Date Type Department Care Team ([facility] Contact Info) Description 04/10/2024 10:00 AM EST Office Visit [facility] MED & PEDS [address] [place] [address] Xiomara Manuel MD 505 [place] [address] Infertility counseling (Primary Dx); Bilateral otitis media [...] side she was referred to [facility] last month and was told [...] counseling Comments: Patient has been seen at [facility] women's health before. Last visit was [...] Upcoming Encounters Date Type Department Care Team ([facility] st Contact Info) Description 06/24/2024 10:30 AM EDT Office Visit [facility] MED & PEDS 505 [place] [address] Xiomara Manuel MD [address] [place] [address] documented as of this encounter Visit Diagnoses Diagnosis Infertility counseling- Primary Bilateral otitis media with effusion Nonsuppurative otitis media, not specified as acute or chronic documented in this encounter Additional Health Concerns Assessment Noted Time PHQ-9 Depression Total Score: 0 11/10/19 23 2:58 PM EDT documented as of this encounter Care Teams Assembler Handbags Relationship Specialty Start Date End Date Xiomara Manuel MD 505 [place] [address] PCP - General Family Medicine 04/16/18 documented as of this encounter
--- OUTSIDE RECORDS SUMMARY | 2024-04-15 12:49 | XMS_ITS | Encounter Summary ---
Author Organization [employer] Address [address] [place] [address] [place] [address] Care Team Providers Care Svp Digital Sales Name Role Phone Xiomara Manuel MD Primary Care Provider [phone] Reason for Visit * Reason Onset Date Comments Med Refill 10/20/2022 Encounter Details Date Type Department Care Team ([facility] Contact Info) Description 10/20/2022 Refill [facility] MED & PEDS [address] [place] [address] Lorrie Cruz MD 505 [place] [address] Mild persistent asthma without complication Social History [...] Upcoming Encounters Date Type Department Care Team ([facility] Contact Info) Description 06/24/2024 10:30 AM EDT Office Visit [facility] MED & PEDS [address] [place] [address] Xiomara Manuel MD 505 [place] [address] documented as of this encounter Visit Diagnoses Diagnosis Mild persistent asthma without complication documented in this encounter Additional Health Concerns Assessment Noted Time PHQ-9 Depression Total Score: 0 02/01/20 22 11:02 AM EST documented as of this encounter Care Teams Svp Digital Sales Relationship Specialty Start Date End Date Xiomara Manuel MD [address] [place] [address] PCP - General Family Medicine 04/16/18 documented as of this encounter
--- OUTSIDE RECORDS SUMMARY | 2024-04-15 12:49 | XMS_ITS | Encounter Summary ---
Author Organization [employer] Address [address] [facility] 7 [place] [address] Care Team Providers Care Test Conductor Name Role Phone Xiomara Manuel MD Primary Care Provider [phone] Reason for Visit * Reason Onset Date Comments Nurse Triage 03/27/2024 Encounter Details Date Type Department Care Team ([facility] st Contact Info) Description 03/27/2024 Telephone [facility] MEDICINE [address] [place] [address] Xiomara Manuel MD 505 [place], [place] [phone] Nurse Triage Social History Tobacco Use Types [...] Center 03/27/2024 10:00 AM Xiomara Manuel MD [facility] 04/11/2024 10:00 AM Jess Jacobo [facility] Insurance verified as active per Real Time Eligibility in [facility]. Positive Triage Question: * All other [...] Description 06/24/2024 10:30 AM EDT Office Visit [facility] CHC MED & PEDS [address] [place] [address] Xiomara Maunel MD 505 [place] [address] documented as of this encounter Visit Diagnoses Not on filedocumented in this encounter Additional Health Concerns Assessment Noted Time PHQ-9 Depression Total Score: 0 11/10/19 2:58 PM EDT documented as of this encounter Care Teams Test Conductor Relationship Specialty Start Date End Date Xiomara Manuel MD 505 [place] [address] PCP - General Family Medicine 04/16/18 documented as of this encounter
--- OUTSIDE RECORDS SUMMARY | 2024-04-15 12:49 | XMS_ITS | Encounter Summary ---
Author Organization [employer] Address 75 [facility] 7t [place] [address] Care Team Providers Care Laundry Machine Tender Name Role Phone Xiomara Manuel MD Primary Care Provider [phone] Encounter Details Date Type Department Care Team [...] 06/24/2024 10:30 AM EDT Office Visit [facility] MED & PEDS 505 [place] [address] Xiomara Manuel MD [address] [place] [address] documented as of this encounter Visit Diagnoses Not on filedocumented in this encounter Additional Health Concerns Assessment Noted Time PHQ-9 Depression Total Score: 0 11/10/19 23 2:58 PM EDT documented as of this encounter Care Teams Laundry Machine Tender Relationship Specialty Start Date End Date Xiomara Manuel MD [address] [place] [address] PCP - General Family Medicine 04/16/18 documented as of this encounter
--- OUTSIDE RECORDS SUMMARY | 2024-04-15 12:49 | XMS_ITS | Encounter Summary ---
Author Organization [employer] Address [address] [place] [address] [place] [address] Care Team Providers Care Guest Relations Officer Name Role Phone Xiomara Manuel MD Primary Care Provider [phone] Encounter Details Date Type Department Care Team (Latest Contact Info) Description 01/21/2021 Abstract [facility] CONVERSIONS Dental, Provider, DDS Social History Tobacco [...] Upcoming Encounters Date Type Department Care Team ([facility] Contact Info) Description 06/24/2024 10:30 AM EDT Office Visit [facility] CHC MED & PEDS 505 [place] [address] Xiomara Manuel MD 505 [place] [address] documented as of this encounter Visit Diagnoses Not on filedocumented in this encounter Care Teams Guest Relations Officer Relationship Specialty Start Date End Date Xiomara Manuel MD 505 [place] [address] PCP - General Family Medicine 04/16/18 documented as of this encounter
--- OUTSIDE RECORDS SUMMARY | 2024-04-15 12:49 | XMS_ITS | Encounter Summary ---
Author Organization [employer] Address [address] [place] [address] 7 [place] [address] Care Team Providers Care General Contractor Name Role Phone Xiomara Manuel MD Primary Care Provider [phone] Encounter Details Date Type Department Care Team ([facility] Contact Info) Description 01/05/2022 Abstract [facility] MEDICINE [address] [place], [place] [phone] ProviderColette MD Social History Tobacco Use Types [...] Upcoming Encounters Date Type Department Care Team ([facility] Contact Info) Description 06/24/2024 10:30 AM EDT Office Visit [facility] CHC MED & PEDS 505 [place], [place] [phone] Xiomara Manuel MD 505 [place], [place] [phone] documented as of this encounter Visit Diagnoses Not on filedocumented in this encounter Care Teams General Contractor Relationship Specialty Start Date End Date Xiomara Manuel MD [address] [place] [address] PCP - General Family Medicine 04/16/18 documented as of this encounter
--- OUTSIDE RECORDS SUMMARY | 2024-04-15 12:49 | XMS_ITS | Encounter Summary ---
Author Organization [employer] Address 75 [facility] 7 [place] [address] Care Team Providers Care Crester Name Role Phone Xiomara Manuel MD Primary Care Provider [phone] Encounter Details Date Type Department Care Team ([facility] Contact Info) Description 03/18/2024 Orders Only [facility] CHC MED & PEDS [address] [place] [address] Xiomara Manuel MD 505 [place] [address] Acquired hypothyroidism (Primary Dx) Social History Tobacco [...] Description 06/24/2024 10:30 AM EDT Office Visit [facility] CHC MED & PEDS 505 [place] [address] Xiomara Manuel MD [address] [place], [place] [phone] documented as of this encounter Procedures Procedure Name Priority Date/Time Associated Diagnosis Comments TSH W/REFLEX TO FT4 Routine 03/27/2024 11:00 AM EST Acquired hypothyroidism documented in this encounter Results * TSH W/Reflex to FT4 (03/27/2024 11:00 AM EST) TSH reflex Free T4 0.57 0.32 - 4.0 uIU/mL [facility] Blood Venous blood specimen / Unknown 03/27/2024 11:00 AM EST 03/27/2024 2:06 PM EST us Xiomara Manuel MD LAB BLOOD ORDERABLES Final Re sult [facility] [address] [place] [address] [phone] documented in this encounter Visit Diagnoses Diagnosis Acquired hypothyroidism- Primary Unspecified hypothyroidism documented in this encounter Additional Health Concerns Assessment Noted Time PHQ-9 Depression Total Score: 0 11/10/19 2:58 PM EDT documented as of this encounter Care Teams Crester Relationship Specialty Start Date End Date Xiomara Manuel MD [address] [place] [address] PCP - General Family Medicine 04/16/18 documented as of this encounter
--- OUTSIDE RECORDS SUMMARY | 2024-04-15 12:49 | XMS_ITS | Encounter Summary ---
Author Organization [employer] Address 75 [facility] 7 [place] [address] Care Team Providers Care Mac Operator Name Role Phone Xiomara Manuel MD Primary Care Provider [phone] Reason for Visit * Reason Comments Med Change Request Encounter Details Date Type Department Care Team ([facility] st Contact Info) Description 04/02/2024 Refill [facility] [address] [place] [address] Xiomara Manuel MD 505 [place], [place] [phone] Mild persistent asthma without complication Social History [...] Description 06/24/2024 10:30 AM EDT Office Visit [facility] MED & PEDS 505 [place] [address] Xiomara Manuel MD [address] [place] [address] documented as of this encounter Visit Diagnoses Diagnosis Mild persistent asthma without complication documented in this encounter Additional Health Concerns Assessment Noted Time PHQ-9 Depression Total Score: 0 11/10/19 2:58 PM EDT documented as of this encounter Care Teams Mac Operator Relationship Specialty Start Date End Date Xiomara Manuel MD [address] [place] [address] PCP - General Family Medicine 04/16/18 documented as of this encounter
--- OUTSIDE RECORDS SUMMARY | 2024-04-15 12:49 | XMS_ITS | Clinical Summary ---
Author Organization [facility] Address [address] [place] [id number] Care Team Providers Care It Risk And Assurance Senior Manager Name Role Phone Unavailable Primary Care Provider [...]
--- OUTSIDE RECORDS SUMMARY | 2024-04-15 12:49 | XMS_ITS | Encounter Summary ---
Author Organization [employer] Address [address] [place] [address] 7 [place] [address] Care Team Providers Care Corner Brace Block Machine Operator Name Role Phone Xiomara Manuel MD Primary Care Provider [phone] Reason for Visit * Reason Onset Date Comments Med Refill 10/20/2022 Encounter Details Date Type Department Care Team ([facility] Contact Info) Description 10/20/2022 Refill [facility] [address] [place] [address] Morena Stockton FNP [address] [place] [address] Dept [place] [address] Injury of left knee, initial encounter; Laceration [...] Description 06/24/2024 10:30 AM EDT Office Visit [facility] CHC MED & PEDS [address] [place] [address] Xiomara Manuel MD [address] [place] [address] documented as of this encounter Visit Diagnoses Diagnosis Injury of left knee, initial encounter Laceration of left knee, initial encounter documented in this encounter Additional Health Concerns Assessment Noted Time PHQ-9 Depression Total Score: 0 02/01/20 22 11:02 AM EST documented as of this encounter Care Teams Corner Brace Block Machine Operator Relationship Specialty Start Date End Date Xiomara Manuel MD [address] [place] [address] PCP - General Family Medicine 04/16/18 documented as of this encounter
--- OUTSIDE RECORDS SUMMARY | 2024-04-15 12:49 | XMS_ITS | Encounter Summary ---
Author Organization [employer] Address 75 [facility] 7t [place] [address] Care Team Providers Care Equity Research Analyst Name Role Phone Xiomara Manuel MD Primary Care Provider [phone] Reason for Visit * Reason Comments Med Change Request Encounter Details Date Type Department Care Team ([facility] st Contact Info) Description 09/04/2023 Refill [facility] [address] [place], [place] [phone] Tessa Houston FNP [address] [place] [address] Mild intermittent asthma without complication Social History [...] [facility] MED & PEDS [address] [place] [address] Xiomara Manuel MD [address] [place] [address] documented as of this encounter Visit Diagnoses Diagnosis Mild intermittent asthma without complication documented in this encounter Additional Health Concerns Assessment Noted Time PHQ-9 Depression Total Score: 0 11/10/19 2:58 PM EDT documented as of this encounter Care Teams Equity Research Analyst Relationship Specialty Start Date End Date Xiomara Manuel MD [address] [place] [address] PCP - General Family Medicine 04/16/18 documented as of this encounter
[2024-04-18 00:24] LABS: TS Negative Control Passed; TS Panel A 0; TS Panel B 0; TS Positive Control Passed; TSpotTB Negative (Negative)
== END 2024-04-15 10:42 | disposition home or self-care (01) ==
LOC: HO.CHCLDS 10:41
PROVIDERS: Visit Provider Pediatrics
DX: Z00.00 Encounter for general adult medical examination without abnormal findings (principal)
CPT/HCPCS: 36415; 86481

== ENCOUNTER 2024-05-28 10:21 | Outpatient (AMB) | payer MEDICAID, SELFPAY ==
--- NOTE | 2024-05-28 10:23 | MHC.OFFVIS ---
Vital Signs 05/28/24 10:25 Height 5 ft 8 in Weight 196 lb BMI 29.8 BP 120/78 Intake Visit Reasons: Infertility Consult Lockstitch Lining Maker Required: No Information Interpreted: non-clinical & clinical Accompanied by: Spouse Allergies iodine [IODINE] Allergy (Unknown, Unverified 05/28/24 10:26) UNK lamotrigine [From LAMICTAL] Allergy (Unknown, Unverified 05/28/24 10:26) RASH latex [LATEX] Allergy (Unknown, Unverified 05/28/24 10:26) UNK methylphenidate [From CONCERTA] Allergy (Unknown, Unverified 05/28/24 10:26) AGITATION shellfish derived [SHELLFISH DERIVED] Allergy (Unknown, Unverified 05/28/24 10:26) HIVES, SWELLING Lubricants Allergy (Mild, Uncoded 05/28/24 10:) Hives Is last menstrual period known: Yes Last menstrual period: 05/04/24 HPI Comments Details: The patient is presenting c/o inability to conceive over the last year in spite of frequent adequate intercourse. Her periods are regular and non-painful, no other complaints. 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 Female Reproductive History Menstrual Age of Menarche: 15 Duration of menses: 3-5 days Date of last menstrual period: 05/04/24 Total pregnancies: 3 Full term: 2 Number of Living Children: 2 Date of last pap smear: 02/28/22 Review of Systems Const All systems reviewed & are unremarkable except as noted in HPI and below Reports as per HPI and Reports no additional complaints GI Reports no additional complaints Reports no additional complaints Physical Exam Vital Signs: Last Vital Signs BP 120/78 05/28/24 10:25 BMI result Body Mass Index 29.8 Assessment & Plan Assessment & Plan (1) Infertility, female: Comment: Status post tubal reversal 05/29 Code(s): N97.9 - Female infertility, unspecified Category: Medical Plan: Semen analysis ordered, day 8 hysterosalpingogram. The patient was instructed to call day 1 of her next menstrual cycle to schedule day 8 HSG. Discussed with the patient that is status post tubal reversal will increase her risk of ectopic to call with positive urine test for serious hCG quantitative to rule out ectopic and document IUP. vitamin 1 tablet p.o. q.d. vitamin 1 tablet p.o. q.d. Coding Level of Care Code New Pt Level 3 (14735) Diagnoses Infertility, female N97.9
[2024-05-28 10:25] VITALS: BP 120/78; BMI 29.8
--- OUTSIDE RECORDS SUMMARY | 2024-05-28 12:11 | XMS_ITS | Encounter Summary ---
Author Organization [employer] Address 75 [facility] [place] [address] Care Team Providers Care Director Of Graduate Medical Education Name Role Phone Xiomara Manuel MD Primary Care Provider [phone] Reason for Visit * Reason Onset Date Comments Appointment Request 04/23/2023 Encounter Details Date Type Department Care Team ([facility] Contact Info) Description 04/23/2023 Telephone [facility] MED [facility]S [address] [place] [address] Xiomara Manuel MD [address] [place] [address] Appointment Request Social History Tobacco Use Types [...] out as well. Please contact pt at [phone] documented in this encounter Plan of Treatment Upcoming Encounters Date Type Department Care Team (Late st Contact Info) Description 06/24/2024 10:30 AM EDT Office Visit [facility] [address] [place] [address] Xiomara Manuel MD [address] [place] [address] documented as of this encounter Visit Diagnoses Not on filedocumented in this encounter Additional Health Concerns Assessment Noted Time PHQ-9 Depression Total Score: 0 11/10/19 23 2:58 PM EDT documented as of this encounter Care Teams Director Of Graduate Medical Education Relationship Specialty Start Date End Date Xiomara Manuel MD [address] [place] [address] PCP - General Family Medicine 04/16/18 documented as of this encounter
--- OUTSIDE RECORDS SUMMARY | 2024-05-28 12:11 | XMS_ITS | Encounter Summary ---
Author Organization [employer] Address [address] [place] [address] 7 [place] [address] Care Team Providers Care Campaign Advisor Name Role Phone Xiomara Manuel MD Primary Care Provider [phone] Encounter Details Date Type Department Care Team ([facility] Contact Info) Description 01/05/2022 Abstract [facility] MEDICINE [address] [place], [place] [phone] ProviderColette MD Social History Tobacco Use Types [...] Upcoming Encounters Date Type Department Care Team ([facility] Contact Info) Description 06/24/2024 10:30 AM EDT Office Visit [facility] CHC MED & PEDS [address] [place], [place] [phone] Xiomara Manuel MD [address] [place], [place] [phone] documented as of this encounter Visit Diagnoses Not on filedocumented in this encounter Care Teams Campaign Advisor Relationship Specialty Start Date End Date Xiomara Manuel MD [address] [place] [address] PCP - General Family Medicine 04/16/18 documented as of this encounter
--- OUTSIDE RECORDS SUMMARY | 2024-05-28 12:11 | XMS_ITS | Encounter Summary ---
Author Organization [employer] Address [address] [place] [address] 7 [place] [address] Care Team Providers Care Solar Pool Heating Installer Name Role Phone Xiomara Manuel MD Primary Care Provider [phone] Encounter Details Date Type Department Care Team ([facility] Contact Info) Description 01/05/2022 Abstract [facility] MEDICINE [address] [place], [place] [phone] ProviderColette MD Social History Tobacco Use Types [...] Upcoming Encounters Date Type Department Care Team ([facility] Contact Info) Description 06/24/2024 10:30 AM EDT Office Visit [facility] MED & PEDS [address] [place], [place] [phone] Xiomara Manuel MD [address] [place], [place] [phone] documented as of this encounter Visit Diagnoses Not on filedocumented in this encounter Care Teams Solar Pool Heating Installer Relationship Specialty Start Date End Date Xiomara Manuel MD [address] [place] [address] PCP - General Family Medicine 04/16/18 documented as of this encounter
--- OUTSIDE RECORDS SUMMARY | 2024-05-28 12:11 | XMS_ITS | Encounter Summary ---
Author Organization [employer] Address [address] [facility] 7t [place] [address] Care Team Providers Care Audit Officer Name Role Phone Xiomara Manuel MD Primary Care Provider [phone] Reason for Visit * Reason Comments Med Change Request Encounter Details Date Type Department Care Team ([facility] st Contact Info) Description 09/04/2023 Refill [facility] [address] [place], [place] [phone] Tessa [place] FNP [address] [place] [address] Mild intermittent asthma without complication Social History [...] [facility] MED & PEDS 505 [place] [address] Xiomara Manuel MD 505 [place] [address] documented as of this encounter Visit Diagnoses Diagnosis Mild intermittent asthma without complication documented in this encounter Additional Health Concerns Assessment Noted Time PHQ-9 Depression Total Score: 0 11/10/19 2:58 PM EDT documented as of this encounter Care Teams Audit Officer Relationship Specialty Start Date End Date Xiomara Manuel MD 505 [place] [address] PCP - General Family Medicine 04/16/18 documented as of this encounter
--- OUTSIDE RECORDS SUMMARY | 2024-05-28 12:11 | XMS_ITS | Clinical Summary ---
Author Organization [facility] ity Address [address] [place] [phone] Care Team Providers Care Civil Celebrant Name Role Phone Unavailable Primary Care Provider [...] - 2023-2 5 season) 2023 Influenza Vaccine (Season Ended) 2024 HIB Vaccines Aged Out No longer eligi [...] age to complete this topic Meningococcal B Vaccine Aged Out No l onger eligible based on patient's age to complete [...]
--- OUTSIDE RECORDS SUMMARY | 2024-05-28 12:11 | XMS_ITS | Encounter Summary ---
Author Organization [employer] Address [address] [facility] 7 [place] [address] Care Team Providers Care Glass Products Inspector Name Role Phone Xiomara Manuel MD Primary Care Provider [phone] Encounter Details Date Type Department Care Team ([facility] Contact Info) Description 10/26/2023 Orders Only [facility] MED & PEDS [address] [place] [address] Xiomara Manuel MD 505 [place] [address] Social History Tobacco Use Types Packs/Day Years [...] 10:30 AM EDT Office Visit [facility] MED & PEDS [address] [place] [address] Xiomara Manuel MD [address] [place] [address] documented as of this encounter Visit Diagnoses Not on filedocumented in this encounter Additional Health Concerns Assessment Noted Time PHQ-9 Depression Total Score: 0 11/10/19 23 2:58 PM EDT documented as of this encounter Care Teams Glass Products Inspector Relationship Specialty Start Date End Date Xiomara Manuel MD 505 [place] [address] PCP - General Family Medicine 04/16/18 documented as of this encounter
--- OUTSIDE RECORDS SUMMARY | 2024-05-28 12:11 | XMS_ITS | Clinical Summary ---
Author Organization [employer] Address [address] [place] [address] 7 [place] [address] Care Team Providers Care Preparation Department Supervisor Name Role Phone Xiomara Manuel MD Primary Care Provider [phone] Allergies Active Allergy Reactions Criticality Noted Date Comments Iodine 05/02/2017 Lamotrigine 01/17/2022 Latex 09/18/2022 Methylphenidate 11/09/2022 Shellfish Allergy 11/09/2022 Shellfish-Derived Products 8 Medications methocarbamol (Robaxin) 750 MG tablet TAKE 1 TABLET BY MOUTH EVERY 6 HOURS NEEDED FOR MUSCLE SPASM 3 Active EPINEPHrine (Epipen) 0.3 MG/0.3ML injection syringe Inject 0.3 mL (0.3 mg) as directed 1 (one) time if needed for anaphylaxis for up to 1 dose. Inject into upper leg. Call 911 after use. 0.3 mL 3 Active cetirizine (ZyrTEC) 10 MG tabletIndication s:Nasal congestion Take 1 tablet (10 mg) by mouth in the morning. 90 tablet 1 4 Active Blood Pressure kitIndications:E levated BP without diagnosis of hypertension Check the BP at home daily 1 kit 4 Active amphetamine-dext roamphetamine XR (Adderall XR) 30 MG 24 hr capsule 4 Active amphetamine-dext roamphetamine (Adderall) 10 MG tablet 4 Active montelukast (Singulair) 10 MG tablet Take 1 tablet (10 mg) by mouth in the evening. 90 tablet 4 Active cholecalciferol (Vitamin D-3) 25 MCG (1000 UT) tabletIndication s:Vitamin D Deficiency Take 1 tablet (25 mcg) by mouth Once per day. 90 tablet 3 4 025 Active hydroCHLOROthiaz daniela (HYDRODiuril) 25 MG tablet Take 1 tablet (25 mg) by mouth Once per day. 30 tablet 11 4 025 Active Ketotifen Fumarate 0.035 % solution ADMINISTER 1 DROP INTO BOTH EYES IF NEEDED IN THE MORNING AND AT BEDTIME FOR ITCHING OR ALLERGIES. 5 mL 1 4 Active ibuprofen 600 MG tablet Take 1 tab orally tid prn pain 60 tablet 5 Active levothyroxine (Synthroid, Levoxyl) 75 MCG tablet TAKE 1 TABLET BY MOUTH EVERY DAY 90 tablet 1 5 Active butalbital-aceta minophen-caffein e 50-325-40 MG tabletIndication s:Nonintractable headache, unspecified chronicity pattern, unspecified headache type Take 1 - 2 tablet by oral route every 6 hours as needed not to exceed 6 tablets per 24hrs 10 tablet 1 5 Active albuterol 108 (90 Base) MCG/ACT inhalerIndicatio ns:Mild intermittent asthma without complication Inhale 2 puffs every 4 (four) hours if needed for wheezing. 18 g 11 5 026 Active albuterol (2.5 MG/3ML) 0.083% nebulizer solutionIndicati ons:Mild intermittent asthma without complication Take 3 mL by nebulization every 8 (eight) hours if needed for wheezing. 75 mL 5 025 Active diphenhydrAMINE (BENADryl) 25 MG tabletIndication s:Allergic rhinitis, unspecified seasonality, unspecified trigger Take 1 tablet (25 mg) by mouth every 8 (eight) hours if needed for itching. 60 tablet 3 5 Active ibuprofen 800 MG tablet Take 1 tab orally tid prn pain with food intake 90 tablet 5 Active fluticasone furoate (Arnuity Ellipta) 100 MCG/ACT inhalerIndicatio ns:Mild persistent asthma without complication Inhale 1 puff Once per day. 30 each 11 5 Active Active Problems Problem Noted Date Diagnosed Date [...] tested negative for , was referred to ob-supervisor instant potato processing for suspected endometriosis. Will place routine labs to evaluate other causes Allergies 01/04/2022 Assessment & Plan (03/13/2024 10:15 AM EST): Hx of allergies to medication, food, and environmental triggers Benadryl PRN Referral to re-establish with [facility] for further eval and management Lactose intolerance 08/17/2016 Asthma 08/17/2016 Assessment & Plan (04/16/2023 11:13 PM EDT): Asthma exacerbation likely tirggered by a respiratory infection and allergen exposure. Plan to increase the use of Albuterol and Fluticasone. Patient given course of oral steroids if no improvement. Encounters Date Type Department Care Team Description 05/07/2024 Population Health Risk Score [facility] (C3) Department [address] [place] [phone] Provider, Population Health Generic 04/15/2024 Orders Only [facility] CH[facility] MED & PEDS [address] [place] [address] Xiomara Manuel MD 04/10/2024 10:00 AM EST Office Visit [facility] MED & PEDS [address] [place] [address] Xiomara Manuel MD Infertility counseling (Primary Dx); Bilateral otitis media with effusion 04/10/2024 Travel 04/02/2024 Refill [facility] [address] [place] [address] Xiomara Manuel MD Mild persistent asthma without complication 04/01/2024 Refill [facility] [address] [place] [address] Tessa [place] FNP Mild persistent asthma without complication 03/28/2024 Telephone [facility] PEDIATRICS [address] [place] [phone] Xiomara Manuel MD 03/28/2024 Telephone [facility] MEDICINE [address] [place] [address] Xiomara Manuel MD 03/27/2024 10:00 AM EST Office Visit [facility] MED & PEDS [address] [place] [address] Xiomara Manuel MD Bilateral otitis media with effusion (Primary Dx) 03/27/2024 Travel 03/27/2024 Telephone [facility] [address] [place] [phone] Xiomara Manuel MD Nurse Triage 03/18/2024 Orders Only [facility] MED & PEDS [address] [place] [address] Xiomara Manuel MD Acquired hypothyroidism (Primary Dx) 03/12/2024 5:20 PM EST Office Visit [facility] [address] [place] [address] [place], CHART PICKER Allergies (Primary Dx); Nonintractable headache, unspecified chronicity pattern, unspecified headache type; Mild intermittent asthma without complication; Acute otitis externa of left ear, unspecified type; Elevated blood pressure reading 03/12/2024 Telephone [facility] MEDICINE [address] [place], [place] [phone] Xiomara Manuel MD Nurse Triage 03/03/2024 11:00 AM EST Office Visit [facility] ADULT DENTAL [address] [place] [address] Rafia Tobias from Last 3 Months Immunizations Name Administration [...] Description 06/24/2024 10:30 AM EDT Office Visit [facility] MED [facility] PEDS [address] [place] [address] Xiomara Manuel MD [address] [place] [address] Health Maintenance Due Date Last Done Comments Alcohol/Substance Use Screening 2004 Family Planning (PISQ) 10/03/2007 Hepatitis B Vaccines (2 of 3 - 19+ 3-dose series) 09/23/2021 08/26/2021 Pneumococcal Vaccine: Pediatrics (0 to 5 Years) and At-Risk Patients (6 to 49) Years) (2 of 2 - PCV) 08/26/2022 08/26/2021 HPV/Cotest 2022 SDOH Screening 08/25/2023 08/24/2022 COVID-19 Vaccine (2023- season) 2023 08/23/2021, 08/23/2021, 01/03/2021, Additional history [...] 75+ series) 10/03/2067 HIV Screening Completed 11/09/2022, 110 04/2021, 03/24/2021, Additional history exists Hepatitis C [...] Procedure Name Priority Date/Time Associated Diagnosis Comments T-SPOT(R).TB Routine 04/15/2024 10:43 AM EDT HCG, TOTAL, QN Routine 04/10/2024 10:44 AM [...] - PORCELAIN/CERAMIC Routine 03/03/2024 12:00 AM EST HEPATITIS C AB W/REFL TO HCV RNA, QN, PCR Routine 08/17/2023 4:05 PM EDT Routine general medical examination at a health care facility HIV ANTIBODY/ANTIGEN ([place] DPH) Routine 11/09/2022 3:15 PM EDT LIPID PANEL, STANDARD Routine 05/17/2022 9:35 AM EDT Overweight PAP SMEAR Routine 02/27/2022 2:02 PM EST Endometriosis from Last 3 Months or Most Recently Relevant to Health Maintenance Results * T-SPOT??.TB (04/15/2024 10:43 AM EDT) T Spot TB Negative Negative [facility] Comment:A negative test resu lt does not exclude the possibilityof exposure to or infection with Mycobacteriumtuberculosis (M. tuberculosis). Patients with recentexposure to TB infected individuals exhibiting anegative T-SPOT.TB result should be considered forretesting within 6 weeks or if other relevant clinicalsymptoms indicate. Results from T-SPOT.TB testing mustbe used in conjunction with each individual'sepidemiological history, current medical status,and results of other diagnostic evaluations.The T-SPOT.TB test is qualitative and results arereported as positive, borderline, or negative, giventhat the test controls perform as expected. In linewith the Centers for Disease Control and Prevention's2010 recommendation to report quantitative measurementsalongside the qualitative result, the laboratoryprovides spot counts for informational purposes only.The T-SPOT.TB test should not be interpreted as aquantitative test. TS PANEL A 0 [facility] TS PANEL B 0 [facility] Negative Control Passed [facility] Positive Control Passed [facility] Comment:For additional infor kylah, please refer tohttp://education.[employer].Leevia/faq/HVG427(This link is being provided for informational/educational purposes only.)THIS TEST WAS PERFORMED AT:[employer] [id number] [place] [address]FIKHZJXKEMAR ARREDONDO MD,PHD 04/15/2024 10:4 3 AM EDT 04/15/2024 4:41 PM EDT Xiomara Manuel MD LAB BLOOD ORDERABLES Final Re sult Performing Organization Address City/State/[facility] Co de Phone Number [facility] [address] [place] [phone] * hCG, Total, Quantitative (04/10/2024 10:44 AM EST) HCG Quantitative <2 mIU/mL [facility] Comment:Weeks post LMP Appro ximate hCG(Last Menstrual Period) Range (mIU/ml)3 - 4 weeks 9 - 1304 - 5 weeks 75 - 2,6005 - 6 weeks 850 - 20,8006 - 7 weeks 4000 - 100,2007 - 12 weeks 11,500 - 289,54383 - 16 weeks 18,300 - 137,12016 - 29 weeks (2nd trimester) 1,400 - 53,91096 - 41 weeks (3rd trimester) 940 - 60,000The Larose B- hCG assay is used for the early detection [...] ORDERABLES Final Re sult Performing Organization Address [facility] de Phone Number [facility] [address] [place] [phone] * TSH W/Reflex to FT4 (03/27/2024 11:00 AM EST) TSH reflex Free T4 0.57 0.32 - 4.0 uIU/mL [facility] Blood Venous blood specimen / Unknown 03/27/2024 11:00 AM EST 03/27/2024 2:06 PM EST us Xiomara Manuel MD LAB BLOOD ORDERABLES Final Re sult Performing Organization Address [facility] Co de Phone Number [facility] [address] [place] [phone] * Hepatitis C Antibody with Reflex to HCV, RNA, Quantitative, Real-Time PCR (08/17/2023 4:05 PM EDT) Pathologist [facility] Hepatitis C Antibody Nonreactive Nonreactive [facility] Comment:Antibodies to HCV no t detected; does not exclude early acuteHCV infection. Blood Venous blood specimen / Unknown 08/17/2023 4:05 PM EDT 08/17/2023 6:06 PM EDT Xiomara Manuel MD LAB BLOOD ORDERABLES Final Re sult Performing Organization Address [facility]/ZIP Co de Phone Number [facility] [address] [place] [phone] * HIV Ab/Ag ([place]) (11/09/2022 3:15 PM EDT) [facility] HIV AB/AG Nonreactive Nonreactive [facility] Comment:HIV-1 p24 Ag and/or HIV-1/HIV-2 Ab not detected.A test result that is nonreactive does not exclude thepossibility of exposure to or infection with HIV-1 and/orHIV-2. Nonreactive results in this assay for individualswith prior exposure to HIV-1 and/or HIV-2 may be due toantigen and antibody levels that are below the limit ofdetection of this assay.The [employer] HIV Ag/Ab Combo assay result andsupplemental assay results should be interpreted inconjunction with the patient's clinical presentation,history and other laboratory results. If the results areinconsistent with clinical evidence, additional testing issuggested to confirm the result. 11/09/2022 3:15 PM EDT 11/09/2022 5:24 PM EDT us Xiomara Manuel MD LAB BLOOD ORDERABLES Final Re sult Performing Organization Address City/[facility]/ZIP Co de Phone Number [facility] [address] [place] [phone] * (ABNORMAL) Lipid Panel, Standard (05/17/2022 9:35 AM EDT) Cholesterol, Total 130 <200 mg/dL [facility] [employer] HDL Cholesterol 39(L) > OR = 50 mg/dL [facility] [employer] Triglycerides 105 <150 mg/dL [facility] [place] [employer] LDL Cholesterol 72 mg/dL (calc) [facility] [employer] Comment: Reference range: <100 Desirable range <100 mg/dL for primary prevention; ?? <70 mg/dL for patients with CHD or diabetic patients with > or = 2 CHD risk factors. LDL-C is now calculated using the Racheal calculation, which is a validated novel method providing better accuracy than the Friedewald equation in the estimation of LDL-C. Minh MCFARLANE et al. KATIE. 2013;310(19): 4875-2615 (http://education.XIHA/faq/BYQ597) Chol/HDLC Ratio 3.3 <5.0 (calc) [facility] Non-HDL Cholesterol 91 <130 mg/dL (calc) [facility] Comment: For patients with diabetes plus 1 major ASCVD risk factor, treating to a non-HDL-C goal of <100 mg/dL (LDL-C of <70 mg/dL) is considered a therapeutic option. Blood Venous blood specimen / Unknown 05/17/2022 9:35 AM EDT 05/17/2022 9:36 AM EDT Narrative [facility] - 05/18/2022 9:06 AM EDT FASTING:YES FASTING: YES us Nima Rick MD LAB BLOOD ORDERABL ES Final Result [facility] [address], [place] [address] [facility] [address] [place] [address] * Pap Smear (02/27/2022 2:02 PM EST) 02/27/2022 2:02 PM EST 02/28/2022 5:30 PM EST Narrative [facility] - 03/10/2022 6:28 PM EST ----- ------- Name: Hailey Villanueva ? Age/Sex: 31/F ? : 1990 Unit#: [id number] ?? Attend Dr: Rogerio Siu MD ?Re02/27/22 ?Status: DEP REF ? Location: HO.LNP ?Disch: ? ----- ------- SPEC : [id number] ? RECD: 02/28/22-173 ? STATUS: ??SOUT ? REQ NUM: [id number] ? WAYNE: 02/27/22-1402 ? SUBM DR: Rogerio [...] ?? [address] ?? [place] [address] ?? [phone] ?? Rogerio Siu MD ?? [address] [place] [address] [place] [address] ?? [place] [address] ?? [phone] ----- ------- Signed (signature on file) Judi Hylton Chelsi 03/10/22 8448 ? ----- ------- ? END OF REPORT ? [facility] External Provider LAB CYT OLOGY ORDERABLES Final Result [facility] [address] [place] [phone] from Last 3 Months or Most Recently Relevant to Health Maintenance [place] [id number] [place] [id number] Care Teams Preparation Department Supervisor Relationship Specialty Start Date End Date Xiomara Manuel MD [address] [place], [place] [address] [address] PCP - General Family Medicine 04/16/18
--- OUTSIDE RECORDS SUMMARY | 2024-05-28 12:11 | XMS_ITS | Encounter Summary ---
Author Organization [employer] Address [address] [place] [address] [place] [address] Care Team Providers Care Leather Belt Maker Name Role Phone Xiomara Manuel MD Primary Care Provider [phone] Reason for Visit * Reason Onset Date Comments Med Refill 10/20/2022 Encounter Details Date Type Department Care Team ([facility] Contact Info) Description 10/20/2022 Refill [facility] [address] [place] [address] Lorrie Cruz MD [address] [place] [address] Mild persistent asthma without complication Social History [...] Upcoming Encounters Date Type Department Care Team ([facility] Contact Info) Description 06/24/2024 10:30 AM EDT Office Visit [facility] [address] [place] [address] Xiomara Manuel MD [address] [place] [address] documented as of this encounter Visit Diagnoses Diagnosis Mild persistent asthma without complication documented in this encounter Additional Health Concerns Assessment Noted Time PHQ-9 Depression Total Score: 0 02/01/20 22 11:02 AM EST documented as of this encounter Care Teams Leather Belt Maker Relationship Specialty Start Date End Date Xiomara Manuel MD [address] [place] [address] PCP - General Family Medicine 04/16/18 documented as of this encounter
--- OUTSIDE RECORDS SUMMARY | 2024-05-28 12:11 | XMS_ITS | Encounter Summary ---
Author Organization [employer] Address [address] [facility] 7 [place] [address] Care Team Providers Care Construction Electrician Name Role Phone Xiomara Manuel MD Primary Care Provider [phone] Reason for Visit * Reason Onset Date Comments Nurse Triage 03/12/2024 Encounter Details Date Type Department Care Team ([facility] st Contact Info) Description 03/12/2024 Telephone [facility] MEDICINE [address] [place] [address] Xiomara Manuel MD [address] [place], [place] [phone] Nurse Triage Social History Tobacco Use Types [...] refill. Pt is advised no apt in [facility] today but, may have DEC openings tomorrow. Pt is advised to come to [facility] today open till 8pm and a provider [...] Getting worse The caller accepted this outcome. [phone] documented in this encounter Plan of Treatment Upcoming Encounters Date Type Department Care Team ([facility] st Contact Info) Description 06/24/2024 10:30 AM EDT Office Visit [facility] MED [facility] PED[facility] [address] [place] [address] Xiomara Manuel MD [address] [place] [address] documented as of this encounter Visit Diagnoses Not on filedocumented in this encounter Additional Health Concerns Assessment Noted Time PHQ-9 Depression Total Score: 0 11/10/19 23 2:58 PM EDT documented as of this encounter Care Teams Construction Electrician Relationship Specialty Start Date End Date Xiomara Manuel MD [address] [place] [address] PCP - General Family Medicine 04/16/18 documented as of this encounter
--- OUTSIDE RECORDS SUMMARY | 2024-05-28 12:11 | XMS_ITS | Encounter Summary ---
Author Organization [employer] Address [address] [place] [address] 7 [place] [address] Care Team Providers Care Supervisor Cook Room Name Role Phone Xiomara Manuel MD Primary Care Provider [phone] Reason for Visit * Reason Onset Date Comments Med Refill 10/20/2022 Encounter Details Date Type Department Care Team ([facility] Contact Info) Description 10/20/2022 Refill [facility] [address] [place] [address] Morena Stockton FNP [address] [place] [address] Dept [place] [address] Injury of left knee, initial encounter; Laceration [...] Description 06/24/2024 10:30 AM EDT Office Visit [facility] [address] [place] [address] Xiomara Manuel MD [address] [place] [address] documented as of this encounter Visit Diagnoses Diagnosis Injury of left knee, initial encounter Laceration of left knee, initial encounter documented in this encounter Additional Health Concerns Assessment Noted Time PHQ-9 Depression Total Score: 0 02/01/20 22 11:02 AM EST documented as of this encounter Care Teams Supervisor Cook Room Relationship Specialty Start Date End Date Xiomara Manuel MD [address] [place] [address] PCP - General Family Medicine 04/16/18 documented as of this encounter
--- OUTSIDE RECORDS SUMMARY | 2024-05-28 12:11 | XMS_ITS | Encounter Summary ---
Author Organization [employer] Address [address] [place] [address] [place] [address] Care Team Providers Care Nurse Behavioral Health Care Name Role Phone Xiomara Manuel MD Primary Care Provider [phone] Encounter Details Date Type Department Care Team (Latest Contact Info) Description 01/21/2021 Abstract [facility] CONVERSIONS Dental, Provider, DDS Social History [...] Upcoming Encounters Date Type Department Care Team ([facility] st Contact Info) Description 06/24/2024 10:30 AM EDT Office Visit [facility] CHC MED & PEDS [address] [place] [address] Xiomara Manuel MD [address] [place] [address] documented as of this encounter Visit Diagnoses Not on filedocumented in this encounter Care Teams Nurse Behavioral Health Care Relationship Specialty Start Date End Date Xiomara Manuel MD [address] [place] [address] PCP - General Family Medicine 04/16/18 documented as of this encounter
--- OUTSIDE RECORDS SUMMARY | 2024-05-28 12:11 | XMS_ITS | Encounter Summary ---
Author Organization [employer] Address [address] [place] [address] [place] [address] Care Team Providers Care Director Index Name Role Phone Xiomara Manuel MD Primary Care Provider [phone] Reason for Visit * Reason Onset Date Comments triage 02/08/2022 Encounter Details Date Type Department Care Team ([facility] Contact Info) Description 02/08/2022 Telephone [facility] CHC MED & PEDS [address] [place], [place] [phone] Xioamra Manuel MD [address] [place] [address] triage Social History Tobacco Use Types Packs/Day [...] throat. Scheduled Pt [place] be [place] [facility] [place] @ 300[place], Insurance is verified as [...] Description 06/24/2024 10:30 AM EDT Office Visit [facility] MED & PEDS [address] [place], [place] [phone] Xiomara Manuel MD [address] [place], [place] [phone] documented as of this encounter Visit Diagnoses Not on filedocumented in this encounter Additional Health Concerns Assessment Noted Time PHQ-9 Depression Total Score: 0 02/01/20 22 11:02 AM EST documented as of this encounter Care Teams Director Index Relationship Specialty Start Date End Date Xiomara Manuel MD [address] [place] [address] PCP - General Family Medicine 04/16/18 documented as of this encounter
--- OUTSIDE RECORDS SUMMARY | 2024-05-28 12:11 | XMS_ITS | Encounter Summary ---
Author Organization [employer] Address 75 [facility] 7 [place] [address] Care Team Providers Care Senior Manufacturing Engineer Name Role Phone Xiomara Manuel MD Primary Care Provider [phone] Encounter Details Date Type Department Care Team ([facility] Contact Info) Description 07/04/2022 Abstract [facility] ADULT DENTAL [address] [place], [place] [phone] Eva Katerina [address] [place] [address] Social History Tobacco Use Types Packs/Day Years [...] Team ([facility] Contact Info) Description 06/24/2024 10:30 AM EDT Office Visit [facility] CHC MED & PEDS [address] [place], [place] [phone] Xiomara Manuel MD [address] [place] [address] documented as of this encounter Visit Diagnoses Not on filedocumented in this encounter Additional Health Concerns Assessment Noted Time PHQ-9 Depression Total Score: 0 02/01/20 22 11:02 AM EST documented as of this encounter Care Teams Senior Manufacturing Engineer Relationship Specialty Start Date End Date Xiomara Manuel MD [address] [place] [address] PCP - General Family Medicine 04/16/18 documented as of this encounter
== END 2024-05-28 11:09 | disposition home or self-care (01) ==
LOC: HO.HWS 10:22
PROVIDERS: PCP Pediatrics; Visit Provider Obstetrics & Gynecology
DX: N97.9 Female infertility, unspecified (principal)
CPT/HCPCS: 99213

== ENCOUNTER → 2024-05-28 10:21 | Outpatient (BNVA) | payer MEDICAID, SELFPAY | PROVIDERS: PCP Pediatrics; Visit Provider Obstetrics & Gynecology | DX: N97.9 Female infertility, unspecified (principal) | CPT/HCPCS: 99212 ==

== ENCOUNTER 2024-07-29 12:31 | Outpatient (AMB) | payer MEDICAID, SELFPAY ==
--- NOTE | 2024-07-29 12:39 | MHC.OFFVIS ---
Intake Visit Reasons: Hysterosalpingogram/ Radiology department Intake Note: Patient here for Hysterosalpingogram procedure. HCG negative. Allergies iodine (IODINE) Allergy (Unknown, Unverified 05/28/24 10:26) UNK lamotrigine (From LAMICTAL) Allergy (Unknown, Unverified 05/28/24 10:26) RASH latex (LATEX) Allergy (Unknown, Unverified 05/28/24 10:26) UNK methylphenidate (From CONCERTA) Allergy (Unknown, Unverified 05/28/24 10:26) AGITATION shellfish derived (SHELLFISH DERIVED) Allergy (Unknown, Unverified 05/28/24 10:26) HIVES, SWELLING Lubricants Allergy (Mild, Uncoded 05/28/24 10:26) Hives HPI Comments Details: The patient presented to urology department for schedule day 8 hysterosalpingogram after tubal reversal in 06/02 Upon further history taking, the patient has a history of iodine allergy with swelling and rash [facility] Medical History History of hypothyroidism Asthma Surgical History History of reversal of tubal ligation History of Tubal ligation status Family History Maternal Grandmother Colon cancer Maternal Aunt Colon cancer Father Suicide Sister Mental disability Mother Asthma Hypothyroid Other COPD (chronic obstructive pulmonary disease) Social History Current occupational status: employed 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 Female Reproductive History Menstrual Age of Menarche: 15 Results AMB Test Urine AMB Test Urine Negative Last Edit by Allie Strauss CMA on 07/29/24 12:39 Results Reviewed Results Reviewed: Laboratory Last Values [facility] Negative 07/29/24 12:39 Assessment & Plan Assessment & Plan (1) Infertility, female: Comment: Status post tubal reversal 05/29 Code(s): N97.9 - Female infertility, unspecified Category: Medical Plan: Explained to the patient given the iodine allergy and the hysterosalpingogram contrast containing iodine, recommended to cancel the procedure, offered the patient to be referred to an reproductive endocrinology/infertility group, the patient insisted to proceed with the procedure;upon further discussion and explanation of the potential risk with exposure of of iodine with a history of allergy including but not limited to anaphylaxis shock, the patient was upset and decided to leave. Orders: Orders AMB HCG Urine Test Today Z32.02 - Encounter for test, result negative Coding Level of Care Code Left Without Being Seen Diagnoses Infertility, female N97.9
--- OUTSIDE RECORDS SUMMARY | 2024-07-29 14:04 | XMS_ITS | Encounter Summary ---
Author Organization [employer] Address 75 [facility] 7 [place] [address] Care Team Providers Care Senior Systems Administrator Name Role Phone Xiomara Manuel MD Primary Care Provider [phone] Encounter Details Date Type Department Care Team ([facility] Contact Info) Description 10/26/2023 Orders Only [facility] CHC MED & PEDS [address] [place] [address] Xiomara Manuel MD [address] [place] [address] Social History Tobacco Use Types Packs/Day Years [...] Care Team (Late st Contact Info) Description 08/20/2024 11:00 AM EDT Office Visit [facility] MED & PEDS [address] [place] [address] Xiomara Maneul MD [address] [place] [address] documented as of this encounter Visit Diagnoses Not on filedocumented in this encounter Additional Health Concerns Assessment Noted Time PHQ-9 Depression Total Score: 0 11/10/19 23 2:58 PM EDT documented as of this encounter Care Teams Senior Systems Administrator Relationship Specialty Start Date End Date Xiomara Manuel MD [address] [place] [address] PCP - General Family Medicine 04/16/18 documented as of this encounter
== END 2024-07-29 13:33 | disposition home or self-care (01) ==
LOC: HO.HWS 12:31
PROVIDERS: PCP Pediatrics; Visit Provider Obstetrics & Gynecology
DX: Z32.02 Encounter for pregnancy test, result negative (principal)

== ENCOUNTER 2024-07-29 12:39 | Outpatient (REF) | payer MEDICAID, SELFPAY | END 2024-07-29 12:40 | disposition home or self-care (01) | LOC: HO.XRAY 12:39 | PROVIDERS: PCP Pediatrics; Visit Provider Obstetrics & Gynecology | DX: Z32.02 Encounter for pregnancy test, result negative (principal) | CPT/HCPCS: 81025 ==

== ENCOUNTER 2025-01-21 12:38 | Outpatient (REF) | payer MEDICAID, SELFPAY ==
[2025-01-21 14:26] LABS: Free T4 (Free Thyroxine) 0.90 ng/dL (0.71-1.85)
--- OUTSIDE RECORDS SUMMARY | 2025-01-21 16:48 | XMS_ITS | Encounter Summary ---
Author Organization [employer] Address [address] [address] Care Team Providers Care Psychiatry Physician Name Role Phone Xiomara Manuel MD Primary Care Provider [phone] Encounter Details Date Type Department Care Team ([facility] st Contact Info) Description 01/05/[address] [facility] MEDICINE [address] [place] [address] ProviderColette MD Social History Tobacco Use Types [...] as of this encounter Plan of Treatment Not on file documented as of this encounter Visit Diagnoses Not on filedocumented in this encounter Care Teams Psychiatry Physician Relationship Specialty Start Date End Date Xiomara Manuel MD [address] [place] [address] PCP - General Family Medicine 04/16/18 documented as of this encounter
--- OUTSIDE RECORDS SUMMARY | 2025-01-21 16:48 | XMS_ITS | Encounter Summary ---
Author Organization [employer] Address [address] [facility] 7 [place] [address] Care Team Providers Care Clerical Warehouseman Name Role Phone Xiomara Manuel MD Primary Care Provider [phone] Encounter Details Date Type Department Care Team ([facility] Contact Info) Description 01/21/2025 Orders Only [facility] CHC MED & PEDS [address] [place] [address] Xiomara Manuel MD [address] [place] [address] Social History Tobacco Use Types Packs/Day Years [...] on file documented as of this encounter Procedures Procedure Name Priority Date/Time Associated Diagnosis Comments T4, FREE Routine 01/21/2025 12:46 PM EST documented in this encounter Results * T4, Free (01/21/2025 12:46 PM EST) Free T4 (Free Thyroxine) 0.90 0.71 - 1.85 ng/dL [facility] 01/21/2025 12:4 6 PM EST 01/21/2025 12:46 PM EST us Xiomara Manuel MD LAB BLOOD ORDERABLES Final Re sult [facility] [address] [place] [address] [phone] documented in this encounter Visit Diagnoses Not on filedocumented in this encounter Additional Health Concerns Assessment Noted Time PHQ-9 Depression Total Score: 0 11/10/19 23 2:58 PM EDT documented as of this encounter Care Teams Clerical Warehouseman Relationship Specialty Start Date End Date Xiomara Manuel MD [address] [place] [address] PCP - General Family Medicine 04/16/18 documented as of this encounter
--- OUTSIDE RECORDS SUMMARY | 2025-01-21 16:48 | XMS_ITS | Encounter Summary ---
Author Organization [employer] Address 75 [facility] 7 [place] [address] Care Team Providers Care Apprentice Instrument Technician Name Role Phone Xiomara Manuel MD Primary Care Provider [phone] Encounter Details Date Type Department Care Team ([facility] Contact Info) Description 07/04/2022 Abstract [facility] ADULT DENTAL [address] [place], [place] [phone] Eva, Katerina [address] [place] [address] Social History Tobacco Use Types Packs/Day Years [...] documented as of this encounter Care Teams Apprentice Instrument Technician Relationship Specialty Start Date End Date Xiomara Manuel MD [address] [place] [address] PCP - General Family Medicine 04/16/18 documented as of this encounter
--- OUTSIDE RECORDS SUMMARY | 2025-01-21 16:48 | XMS_ITS | Encounter Summary ---
Author Organization [employer] Address [address] [place] [address] Care Team Providers Care Religious Ritual Slaughterer Name Role Phone Xiomara Manuel MD Primary Care Provider [phone] Reason for Visit * Reason Onset Date Comments triage 02/08/2022 Encounter Details Date Type Department Care Team ([facility] Contact Info) Description 02/08/2022 Telephone [facility] CHC MED & PEDS [address] [place] [address] Xiomara Manuel MD [address] [place] [address] triage Social History Tobacco Use Types Packs/Day [...] throat. [place] [facility] [place] @ 300[place], Insurance is verified as [...] documented in this encounter Plan of Treatment Not on file documented as of this encounter Visit Diagnoses Not on filedocumented in this encounter Additional Health Concerns Assessment Noted Time PHQ-9 Depression Total Score: 0 02/01/20 22 11:02 AM EST documented as of this encounter Care Teams Religious Ritual Slaughterer Relationship Specialty Start Date End Date Xiomara Manuel MD [address] [place] [address] PCP - General Family Medicine 04/16/18 documented as of this encounter
--- OUTSIDE RECORDS SUMMARY | 2025-01-21 16:48 | XMS_ITS | Encounter Summary ---
Author Organization [employer] Address [address] [address] Care Team Providers Care Roofer Vinyl Coating Name Role Phone Xiomara Manuel MD Primary Care Provider [phone] Encounter Details Date Type Department Care Team ([facility] st Contact Info) Description 01/05/2022 Abstract [facility] MEDICINE [address] [place] [address] ProviderColette MD Social History Tobacco Use Types [...] on filedocumented in this encounter Care Teams Roofer Vinyl Coating Relationship Specialty Start Date End Date Xiomara Manuel MD [address] [place] [address] PCP - General Family Medicine 04/16/18 documented as of this encounter
--- OUTSIDE RECORDS SUMMARY | 2025-01-21 16:48 | XMS_ITS | Clinical Summary ---
Author Organization [facility] Address [address] [place] [address] Care Team Providers Care Geothermal Installer Name Role Phone Unavailable Primary Care Provider [...] Cervical Cancer Screening: P ap Smear 2013 HPV Vaccines (1 - 3-dose SCD M series) 10/03/2019 HIV Screening 01/03/2022 Hepatitis C Screening 01/03/2022 Social Influencers of Health Screening 01/03/2022 Depression Screening 02/06/2024 COVID-19 Vaccine (1 - 2024-2 6 season) 2024 Influenza Vaccine (#1) 2024 RSV Immunization Adult Patie nts (1 - 1-dose 75+ series) 10/03/2067 HIB Vaccines Aged Out No longer eligi [...] 5 Years) and At-Risk Patients (6 to 49 Years) Aged Out No longer eligible b ased on patient's age to complete this topic RSV Immunization Patients Un mario 20 months Aged Out No longer eligible b ased on patient's age to complete this topic Varicella Vaccines Aged Out No longer eligible based on patient's age to complete this topic
--- OUTSIDE RECORDS SUMMARY | 2025-01-21 16:48 | XMS_ITS | Encounter Summary ---
Author Organization [employer] Address [address] [address] Care Team Providers Care Storehouse Clerk Name Role Phone Xiomara Manuel MD Primary Care Provider [phone] Reason for Visit * Reason Onset Date Comments Lab Orders 01/21/2025 Encounter Details Date Type Department Care Team ([facility] Contact Info) Description 01/21/2025 Telephone [facility] CHC MED & PEDS [address] [place] [address] Xiomara Manuel MD [address] [place] [address] Lab Orders Social History Tobacco Use Types Packs/Day Years [...] encounter Miscellaneous Notes * Telephone Encounter - Marilou Tristan RN - 01/21/2025 9:03 AM EST Provider who pt was going to see out today. TC to pt. Advised provider not here today. Pt states having positive home test and has had history of ectopic . Was recommended by previous OB if again to have HCG testingevery 3-4 days. Advised will order hcg today and asked where pt would like OB referral if positive.Pt expressed wanting referral to be sent to [facility] [place]. Advised willinform pt of results and referral. Pt verbalized understanding and agreement with plan documented in this encounter Plan of Treatment Not on file documented as of this encounter Procedures Procedure Name Priority Date/Time Associated Diagnosis Comments HCG, TOTAL, QN Routine 01/21/2025 12:46 PM EST Infertility counseling documented in this encounter Results * hCG, Total, Quantitative (01/21/2025 12:46 PM EST) HCG Quantitative 30 mIU/mL [facility] Comment:Weeks post LMP Appro ximate hCG(Last Menstrual Period) Range (mIU/ml)3 - 4 weeks 9 - 1304 - 5 weeks 75 - 2,6005 - 6 weeks 850 - 20,8006 - 7 weeks 4000 - 100,2007 - 12 weeks 11,500 - 289,15376 - 16 weeks 18,300 - 137,19028 - 29 weeks (2nd trimester) 1,400 - 53,96647 - 41 weeks (3rd trimester) 940 - 60,000The Larose B- hCG assay is used for the early detection ofpregnancy; it cannot be used to diagnose any conditionunrelated to . If a B-hCG level is not supportedby the clinical evidence, results should be confirmed by analternative method (qualitative urine hCG, for example). Blood Venous blood specimen / Unknown 01/21/2025 12:46 PM EST 01/21/2025 12:46 PM EST us Xiomara Manuel MD LAB BLOOD ORDERABLES Final Re sult [facility] [address] [place] [address] [phone] documented in this encounter Visit Diagnoses Diagnosis Infertility counseling documented in this encounter Additional Health Concerns Assessment Noted Time PHQ-9 Depression Total Score: 0 11/10/19 23 2:58 PM EDT documented as of this encounter Care Teams Storehouse Clerk Relationship Specialty Start Date End Date Xiomara Manuel MD [address] [place] [address] PCP - General Family Medicine 04/16/18 documented as of this encounter
--- OUTSIDE RECORDS SUMMARY | 2025-01-21 16:49 | XMS_ITS | Encounter Summary ---
Author Organization [employer] Address 75 [facility] 7 [place] [address] Care Team Providers Care Senior Firmware Engineer Name Role Phone Xiomara Manuel MD Primary Care Provider [phone] Encounter Details Date Type Department Care Team ([facility] Contact Info) Description 11/18/2024 Orders Only [facility] CHC MED & PEDS [address] [place] [address] Maynor Buckley MD [address] [place] [address] Social History Tobacco Use Types Packs/Day Years [...] as of this encounter Care Teams Senior Firmware Engineer Relationship Specialty Start Date End Date Xiomara Manuel MD [address] [place] [address] PCP - General Family Medicine 04/16/18 documented as of this encounter
--- OUTSIDE RECORDS SUMMARY | 2025-01-21 16:49 | XMS_ITS | Encounter Summary ---
Author Organization [employer] Address 75 [facility] 7 [place] [address] Care Team Providers Care Web Site Specialist Name Role Phone Xiomara Manuel MD Primary Care Provider [phone] Encounter Details Date Type Department Care Team ([facility] Contact Info) Description 10/26/2023 Orders Only [facility] CHC MED & PEDS [address] [place] [address] Xiomara Manuel MD [address] [place] [address] Social History Tobacco Use Types Packs/Day Years [...] documented as of this encounter Care Teams Web Site Specialist Relationship Specialty Start Date End Date Xiomara Manuel MD [address] [place] [address] PCP - General Family Medicine 04/16/18 documented as of this encounter
--- OUTSIDE RECORDS SUMMARY | 2025-01-21 16:49 | XMS_ITS | Clinical Summary ---
Author Organization [employer] Address [address] [place] [address] 7 [place] [address] Care Team Providers Care Environmental Conservation Professor Name Role Phone Xiomara Manuel MD Primary Care Provider [phone] Allergies Active Allergy Reactions Criticality Noted Date Comments Iodine 05/02/2017 Lamotrigine 01/17/2022 Latex 09/18/2022 Methylphenidate 11/09/2022 Shellfish Allergy 11/09/2022 Shellfish Protein-Containing Drug Products 05/02/2017 Medications methocarbamol (Robaxin) 750 MG tablet TAKE 1 TABLET BY MOUTH EVERY 6 HOURS NEEDED FOR MUSCLE SPASM 04/07/19 23 Active cetirizine (ZyrTEC) 10 MG tabletIndicatio ns:Nasal congestion Take 1 tablet (10 mg) by mouth in the morning. 90 tablet 1 04/26/19 24 Active Blood Pressure kitIndications: Elevated BP without diagnosis of hypertension Check the BP at home daily 1 kit 04/26/19 24 Active amphetamine-dex troamphetamine XR (Adderall XR) 30 MG 24 hr capsule 08/30/19 24 Active amphetamine-dex troamphetamine (Adderall) 10 MG tablet 08/30/19 24 Active hydroCHLOROthia zide (HYDRODiuril) 25 MG tablet Take 1 tablet (25 mg) by mouth Once per day. 30 tablet 11 10/23/19 24 Active ibuprofen 600 MG tablet Take 1 tab orally tid prn pain 60 tablet 02/06/19 25 Active butalbital-acet aminophen-caffe ine 50-325-40 MG tabletIndicatio ns:Nonintractab le headache, unspecified chronicity pattern, unspecified headache type Take 1 - 2 tablet by oral route every 6 hours as needed not to exceed 6 tablets per 24hrs 10 tablet 1 03/12/19 25 Active albuterol 108 (90 Base) MCG/ACT inhalerIndicati ons:Mild intermittent asthma without complication Inhale 2 puffs every 4 (four) hours if needed for wheezing. 18 g 11 03/12/19 25 2025 Active albuterol (2.5 MG/3ML) 0.083% nebulizer solutionIndicat ions:Mild intermittent asthma without complication Take 3 mL by nebulization every 8 (eight) hours if needed for wheezing. 75 mL 03/12/19 25 Active diphenhydrAMINE (BENADryl) 25 MG tabletIndicatio ns:Allergic rhinitis, unspecified seasonality, unspecified trigger Take 1 tablet (25 mg) by mouth every 8 (eight) hours if needed for itching. 60 tablet 3 03/12/19 25 Active ibuprofen 800 MG tablet Take 1 tab orally tid prn pain with food intake 90 tablet 03/27/19 25 Active fluticasone furoate (Arnuity Ellipta) 100 MCG/ACT inhalerIndicati ons:Mild persistent asthma without complication Inhale 1 puff Once per day. 30 each 11 04/03/19 25 Active EPINEPHrine (Epipen) 0.3 MG/0.3ML injection syringe INJECT ONE PEN ONE TIME DIRECTED IF NEEDED FOR ANAPHYLAXIS FOR UP TO 1 DOSE. INJECT INTO UPPER LEG. CALL 911 AFTER USE. 2 each 08/16/19 25 Active levothyroxine (Synthroid, Levoxyl) 75 MCG tablet TAKE 1 TABLET BY MOUTH EVERY DAY 90 tablet 1 08/23/19 25 Active montelukast (Singulair) 10 MG tablet TAKE 1 TABLET BY MOUTH DAILY IN THE EVENING 90 tablet 11/11/19 25 Active Ketotifen Fumarate 0.035 % solution INSTILL 1 DROP INTO BOTH EYES IF NEEDED IN THE MORNING AND AT BEDTIME FOR ITCHING OR ALLERGIES 5 mL 1 01/14/20 25 Active Ketotifen Fumarate 0.035 % solution ADMINISTER 1 DROP INTO BOTH EYES IF NEEDED IN THE MORNING AND AT BEDTIME FOR ITCHING OR ALLERGIES. 5 mL 1 09/25/19 25 2024 Discontinued Active Problems Problem Noted Date [...] tested negative for , was referred to ob-call box wirer for suspected endometriosis. Will place routine labs to evaluate other causes Allergies 01/04/2022 Assessment & Plan (03/13/2024 10:15 AM EST): Hx of allergies to medication, food, and environmental triggers Benadryl PRN Referral to re-establish with Vice President Industrial Relations for further eval and management Lactose intolerance 08/17/2016 Asthma 08/17/2016 Assessment & Plan (04/16/2023 11:13 PM EDT): Asthma exacerbation likely tirggered by a respiratory infection and allergen exposure. Plan to increase the use of Albuterol and Fluticasone. Patient given course of oral steroids if no improvement. Encounters Date Type Department Care Team Description 01/21/2025 Orders Only [facility] [address] [place] [address] Xiomara Manuel MD 01/21/2025 Telephone [facility] [address] [place] [address] Xiomara Manuel MD Lab Orders 01/20/2025 Travel 01/20/[address] [address] Xiomara Manuel MD Lab Orders 01/12/2025 Refill [facility] [address] [place] [address] Xiomara Manuel MD 12/05/2024 Telephone [facility] [address] [place] [address] Xiomara Manuel MD No Show 12/02/2024 Telephone [facility] [address] [place] [address] Xiomara Manuel MD Chart Prep 11/28/2024 Patient Outreach [address] [address] Xiomara Manuel MD Pre-visit Planning (Pre visit planning LVM ) 11/18/2024 Orders Only [facility] [address] [place] [address] Maynor Buckley MD 11/10/2024 Refill [facility] [address] [place] [address] Xiomara Manuel MD from Last 3 Months Immunizations Immunization Administration Dates Next Due Hep B, adult [...] 92 04/10/2024 10:12 AM EST Temperature 36.7 C (98.1 F) 04/10/2024 10:12 AM EST Respiratory Rate 18 04/10/2024 10:12 AM EST Oxygen Saturation 98% 04/10/2024 10:12 AM EST Inhaled Oxygen Concentration - - Weight 84.8 kg (187 lb) 04/10/2024 10:12 AM EST Height 172.7 cm (5' 8 ) 04/10/2024 10:12 AM EST Body Mass Index 28.43 04/10/2024 10:12 AM EST Plan of Treatment Health Maintenance Due Date Last Done Comments Alcohol/Substance Use Screening 2004 Family Planning (PISQ) 10/03/2007 HPV Vaccines (1 - 3-dose series) 10/03/2007 Hepatitis B Vaccines (2 of 3 - 19+ 3-dose series) 09/23/2021 08/26/2021 Pneumococcal Vaccine: Pediatrics (0 to 5 Years) and At-Risk Patients (6 to 49) Years (2 of 2 - PCV) 08/26/2022 08/26/2021 HPV/Cotest 2022 SDOH Screening 08/25/2023 08/24/2022 Depression Screening 11/10/2023 11/09/2022, 11/10/19 23 Dental Oral Exam 09/01/2024 03/03/2024 Dental Prophylaxis 09/01/2024 03/03/2024, 06/21/2022 COVID-19 Vaccine ( season) 2024 08/23/2021, 08/23/2021, 01/03/2021, Additional history exists Influenza Vaccine (#1) 2024 , 01/03/2021, 11/12/2018, Additional history exists DTaP/Tdap/Td Vaccines (3 - Td or Tdap) 01/04/2025 01/04/2015, 2011 Cervical Cancer Screening 02/27/2025 Pap Smear 02/27/2025 02/27/2022, 03/08, 03/24/2021 Tobacco Screening 03/03/2025 03/03/2024 Dental X-Ray: Bitewings 03/04/2025 03/03/2024, 06/21 Disability Screening 01/20/2026 01/20/2025 Dental X-Ray: Full Mouth 03/04/2027 03/03/2024, 01/05 Lipid Panel 05/18/2027 05/17/2022 Zoster Vaccines (1 [...] T4, FREE Routine 01/21/2025 12:46 PM EST HCG, TOTAL, QN Routine 01/21/2025 12:46 PM EST Infertility counseling TSH W/REFLEX TO FT4 Routine 01/21/2025 1 2:46 PM EST Acquired hypothyroidism PROPHYLAXIS - ADULT Routine 03/03/2024 1 1:00 AM EST INTRAORAL - COMPLETE SERIES OF RADIOGRAPHIC IMAGES Routine 03/03/2024 11:00 AM EST PERIODIC ORAL EVALUATION - ESTABLISHED PATIENT Routine 03/03/2024 11:00 AM EST HEPATITIS C AB W/REFL TO [...] Recently Relevant to Health Maintenance Results * (ABNORMAL) TSH W/Reflex to FT4 (01/21/2025 12:46 PM EST) TSH reflex Free T4 11.52(H) 0.32 - 4.0 uIU/mL [facility] Blood Venous blood specimen / Unknown 01/21/2025 12:46 PM EST 01/21/2025 12:46 PM EST us Xiomara Manuel MD LAB BLOOD ORDERABLES Final Re sult [facility] [address] [place] [address] [phone] * hCG, Total, Quantitative (01/21/2025 12:46 PM EST) HCG Quantitative 30 mIU/mL [facility] Comment:Weeks post LMP Appro ximate hCG(Last Menstrual Period) Range (mIU/ml)3 - 4 weeks 9 - 1304 - 5 weeks 75 - 2,6005 - 6 weeks 850 - 20,8006 - 7 weeks 4000 - 100,2007 - 12 weeks 11,500 - 289,07625 - 16 weeks 18,300 - 137,96335 - 29 weeks (2nd trimester) 1,400 - 53,41634 - 41 weeks (3rd trimester) 940 - [...] ORDERABLES Final Re sult Performing Organization Address [facility] Co de Phone Number [facility] [address] [place] [phone] * T4, Free (01/21/2025 12:46 PM EST) Free T4 (Free Thyroxine) 0.90 0.71 - 1.85 ng/dL [facility] 01/21/2025 12:4 6 PM EST 01/21/2025 12:46 PM EST Xiomara Manuel MD LAB BLOOD ORDERABLES Final Re sult Performing Organization Address [facility] Phone Number [facility] [address] [place] [phone] * Hepatitis C Antibody with Reflex to HCV, RNA, Quantitative, Real-Time PCR (08/17/2023 4:05 PM EDT) Pathologist [facility] Hepatitis C Antibody Nonreactive Nonreactive [facility] Comment:Antibodies to HCV no t detected; does not exclude early acuteHCV infection. Blood Venous blood specimen / Unknown 08/17/2023 4:05 PM EDT 08/17/2023 6:06 PM EDT us Xiomara Manuel MD LAB BLOOD ORDERABLES Final Re sult Performing Organization Address [facility] Co de Phone Number [facility] [address] [place] [phone] * HIV Ab/Ag (NC DP) (11/09/2022 3:15 PM EDT) Pathologist [facility] HIV AB/AG Nonreactive Nonreactive [facility] Comment:HIV-1 p24 Ag and/or HIV-1/HIV-2 Ab not detected.A test result that is nonreactive does not exclude thepossibility of exposure to or infection with HIV-1 and/orHIV-2. Nonreactive results in this assay for individualswith prior exposure to HIV-1 and/or HIV-2 may be due toantigen and antibody levels that are below the limit ofdetection of this assay.The [employer] HIV Ag/Ab Combo assay result andsupplemental assay results should be interpreted inconjunction with the patient's clinical presentation,history and other laboratory results. If the results areinconsistent with clinical evidence, additional testing issuggested to confirm the result. 11/09/2022 3:15 PM EDT 11/09/2022 5:24 PM EDT us Xiomara Manuel MD LAB BLOOD ORDERABLES Final Re sult [facility] [address] [place] [phone] * (ABNORMAL) Lipid Panel, Standard (05/17/2022 9:35 AM EDT) Pathologist [facility] Cholesterol, Total 130 <200 mg/dL [facility] [place] [facility] HDL Cholesterol 39(L) > OR = 50 mg/dL [facility] [place] [facility] Triglycerides 105 <150 mg/dL [facility] [place] [facility] LDL Cholesterol 72 mg/dL (calc) [facility] [place] [facility] Comment: Reference range: <100 Desirable range <100 mg/dL for primary prevention; <70 mg/dL for patients with CHD or diabetic patients with > or = 2 CHD risk factors. LDL-C is now calculated using the Racheal calculation, which is a validated novel method providing better accuracy than the Friedewald equation in the estimation of LDL-C. Minh MCFARLANE et al. KATIE. 2013;310(19): 1191-4054 (http://education.GuidesMob/faq/YDR421) Chol/HDLC Ratio 3.3 <5.0 (calc) [facility] [place] [facility] Non-HDL Cholesterol 91 <130 mg/dL (calc) [facility] [place] [facility] Comment: For patients with diabetes plus 1 [...] BLOOD ORDERABL ES Final Result [facility] [address], [place] [address] [facility] [place] [facility] [address] [place] [address] * Pap Smear (02/27/2022 2:02 PM EST) 02/27/2022 2:02 PM EST 02/28/2022 5:30 PM EST Narrative [facility] - 03/10/2022 6:28 PM EST ----- ------- Name: Hailey Villanueva Age/Sex: 31/F : 1990 Unit#: [id number] Attend Dr: Rogerio Siu MD Re02/27/22 Status: DEP REF Location: [facility] Disch: ----- ------- SPEC : [id number] RECD: 02/28/22 STATUS: JONY MOLINA NUM: [id number] WAYNE: 02/27/[address] [facility] [address]: Rogerio Siu MD ENTERED: 02/28/22 SP TYPE: Pap Smr OTHR DR: Xiomara Manuel MD ORDERED: Pap Smear Interpretation Satisfactory for evaluation. Negative for intraepithelial lesion or malignancy. Clinical Information LMP: 02/2022 Previous PAP test: Unknown Material Received ThinPrep-Cervical Copies To: Xiomara Manuel MD [address] [place] [phone] Rogerio Siu MD [address] [place], [place] [address] [address] ----- ------- Signed (signature on file) Judi Warner Gagnon 03/10/22 1828 ----- ------- END OF REPORT [facility] External Provider LAB CYT OLOGY ORDERABLES Final Result [facility] [address] [place] [address] [phone] from Last 3 Months or Most Recently Relevant to Health Maintenance Insurance [facility] C[facility] DENTAL - [facility] [employer] Care Teams Environmental Conservation Professor Relationship Specialty Start Date End Date Xiomara Manuel MD [address] [facility] [place] [address] PCP - General Family Medicine 04/16/18
--- OUTSIDE RECORDS SUMMARY | 2025-01-21 16:49 | XMS_ITS | Encounter Summary ---
Author Organization [email or web address] Address [address] [address] Care Team Providers Care Electric Stop Installer Name Role Phone Xiomara Manuel MD Primary Care Provider [phone] Reason for Visit * Reason Onset Date Comments Lab Orders 01/20/2025 Encounter Details Date Type Department Care Team ([facility] Contact Info) Description 01/20/2025 Telephone [facility] MED[facility] [address] [place] [address] Xiomara Manuel MD [address] [place] [address] Lab Orders Social History Tobacco Use Types [...] encounter Miscellaneous Notes * Telephone Encounter - Siena Ellsworth RN - 01/20/2025 3:56 PM EST Called pt regarding request for testing, spoke to pt. Pt states LMP 12/23 and pt took home test, resulted positive. Pt has history of a tubal reversal about a year ago and is at high risk for ectopic . Pt denies pain, or other associated or severe symptoms. [facility] for exam, confirmatory quantitative HCG and possible OB referral. Pt understands and agrees with plan. * Telephone Encounter - Jadon Odom - 01/20/2025 3:21 PM EST Tc from pt stating she is positive for at home test and would like to have lab work done. Please contact pt at [phone]. documented in this encounter Plan of Treatment Not on file documented as of this encounter Visit Diagnoses Not on filedocumented in this encounter Additional Health Concerns Assessment Noted Time PHQ-9 Depression Total Score: 0 11/10/19 23 2:58 PM EDT documented as of this encounter Care Teams Electric Stop Installer Relationship Specialty Start Date End Date Xiomara Manuel MD [address] [place] [address] PCP - General Family Medicine 04/16/18 documented as of this encounter
--- OUTSIDE RECORDS SUMMARY | 2025-01-21 16:49 | XMS_ITS | Encounter Summary ---
Author Organization [employer] Address [address] [place] [address] [place], [place] [address] Care Team Providers Care Iron Plastic Bullet Maker Name Role Phone Xiomara Manuel MD Primary Care Provider [phone] Reason for Visit * Reason Onset Date Comments Med Refill 10/20/2022 Encounter Details Date Type Department Care Team ([facility] st Contact Info) Description 10/20/2022 Refill [facility] [address] [place] [address] Lorrie Cruz MD [address] [place] [address] Mild persistent asthma without complication Social History [...] documented as of this encounter Care Teams Iron Plastic Bullet Maker Relationship Specialty Start Date End Date Xiomara Manuel MD [address] [place] [address] PCP - General Family Medicine 04/16/18 documented as of this encounter
--- OUTSIDE RECORDS SUMMARY | 2025-01-21 16:49 | XMS_ITS | Encounter Summary ---
Author Organization [employer] Address [address] [address] Care Team Providers Care Health Sciences Department Chair Name Role Phone Xiomara Manuel MD Primary Care Provider [phone] Reason for Visit * Reason Onset Date Comments Nurse Triage 03/12/2024 Encounter Details Date Type Department Care Team ([facility] Contact Info) Description 03/12/2024 Telephone [facility] [address] [place] [address] Xiomara Manuel MD [address] [place] [address] Nurse Triage Social History Tobacco Use Types [...] refill. Pt is advised no apt in [facility] today but, may have [facility] openings tomorrow. Pt is advised to come to [facility] today open till 8pm and a [...] Getting worse The caller accepted this outcome. [phone] documented in this encounter Plan of Treatment Not on file documented as of this encounter Visit Diagnoses Not on filedocumented in this encounter Additional Health Concerns Assessment Noted Time PHQ-9 Depression Total Score: 0 11/10/19 23 2:58 PM EDT documented as of this encounter Care Teams Health Sciences Department Chair Relationship Specialty Start Date End Date Xiomara Manuel MD [address] [place] [address] PCP - General Family Medicine 04/16/18 documented as of this encounter
--- OUTSIDE RECORDS SUMMARY | 2025-01-21 16:49 | XMS_ITS | Encounter Summary ---
Author Organization [employer] Address 75 [facility] 7 [place] [address] Care Team Providers Care Drafting Clerk Name Role Phone Xiomara Manuel MD Primary Care Provider [phone] Reason for Visit * Reason Onset Date Comments Med Refill 10/20/2022 Encounter Details Date Type Department Care Team (Late st Contact Info) Description 10/20/2022 Refill [facility] [address] [place] [phone] Morena Stockton FNP Injury of left knee, initial encounter; Laceration [...] documented as of this encounter Care Teams Drafting Clerk Relationship Specialty Start Date End Date Xiomara Manuel MD [address] [place] [phone] PCP - General Family Medicine 04/16/18 documented as of this encounter
--- OUTSIDE RECORDS SUMMARY | 2025-01-21 16:49 | XMS_ITS | Encounter Summary ---
Author Organization [employer] Address [address] [place] [address] Care Team Providers Care Security Clerk Name Role Phone Xiomara Manuel MD Primary Care Provider [phone] Encounter Details Date Type Department Care Team (Latest Contact Info) Description 01/21/2021 [facility] Dental, Provider, DDS Social History Tobacco [...] on filedocumented in this encounter Care Teams Security Clerk Relationship Specialty Start Date End Date Xiomara Manuel MD [address] [place] [address] PCP - General Family Medicine 04/16/18 documented as of this encounter
--- OUTSIDE RECORDS SUMMARY | 2025-01-21 16:49 | XMS_ITS | Encounter Summary ---
Author Organization [employer] Address 75 [facility] [address]t [place] [address] Care Team Providers Care Leather Patcher Name Role Phone Xiomara Manuel MD Primary Care Provider Reason for Visit * Reason Comments Med Change Request Encounter Details Date Type Department Care Team ([facility] Contact Info) Description 09/04/2023 Refill [facility] [address] [place] [address] Tessa Houston FNP [address] [place] [address] Mild intermittent asthma without complication Social History [...] as of this encounter Care Teams Leather Patcher Relationship Specialty Start Date End Date Xiomara Manuel MD [address] [place] [address] PCP - General Family Medicine 04/16/18 documented as of this encounter
--- OUTSIDE RECORDS SUMMARY | 2025-01-21 16:49 | XMS_ITS | Encounter Summary ---
Author Organization [employer] Address [address] [address] Care Team Providers Care Consumer Marketing Manager Name Role Phone Xiomara Manuel MD Primary Care Provider [phone] Reason for Visit * Reason Onset Date Comments Appointment Request 04/23/2023 Encounter Details Date Type Department Care Team ([facility] Contact Info) Description 04/23/2023 Telephone [facility] [address] [place] [address] Xiomara Manuel MD [address] [place] [address] Appointment Request Social History Tobacco Use Types [...] out as well. Please contact pt at [phone] documented in this encounter Plan of Treatment Not on file documented as of this encounter Visit Diagnoses Not on filedocumented in this encounter Additional Health Concerns Assessment Noted Time PHQ-9 Depression Total Score: 0 11/10/19 23 2:58 PM EDT documented as of this encounter Care Teams Consumer Marketing Manager Relationship Specialty Start Date End Date Xiomara Manuel MD [address] [place] [address] PCP - General Family Medicine 04/16/18 documented as of this encounter
--- OUTSIDE RECORDS SUMMARY | 2025-01-21 16:49 | XMS_ITS | Encounter Summary ---
Author Organization [employer] Address 75 [facility] [address]t [place] [address] Care Team Providers Care Satellite Communications Engineer Name Role Phone Xiomara Manuel MD Primary Care Provider [phone] Encounter Details Date Type Department Care Team (Latest Contact Info) Description 01/20/2025 Travel Social History Tobacco Use Types Packs/Day [...] documented as of this encounter Care Teams Satellite Communications Engineer Relationship Specialty Start Date End Date Xiomara Manuel MD [address] [place] [address] PCP - General Family Medicine 04/16/18 documented as of this encounter
== END 2025-01-21 12:39 | disposition home or self-care (01) ==
LOC: HO.LAB 12:38
PROVIDERS: PCP Pediatrics; Visit Provider Pediatrics
DX: Z31.69 Encounter for other general counseling and advice on procreation (principal); Z32.01 Encounter for pregnancy test, result positive; E03.9 Hypothyroidism, unspecified
CPT/HCPCS: 36415; 84439; 84443; 84702